=== PATIENT | male | born 1930 | race Caucasian/White ===

== ENCOUNTER 2019-05-26 21:53 | Inpatient (IN) | payer MEDICARE, MEDICAID ==
[~2019-05-26] VITALS: Ht 167.6 cm; Wt 60.6 kg
--- NOTE | 2019-05-26 22:09 | Emergency Room Report ---
History of Present Illness General Chief Complaint: Upper Respiratory Illness Source: Patient Present Illness HPI This an 88-year-old male from a [facility]. He has a history of high blood pressure and schizophrenia. He is bedbound. He is a DNR. He presents with chief complaint of shortness of breath. Onset today per [facility] note. Unknown other complaint since he cannot give a history. Per air export operations agent, room air oxygenation was in the high 80 percentile. Better on oxygen. Patient does have a slight cough. Allergies: Coded Allergies: SIMVASTATIN (Verified Allergy, Unknown, 05/26/19) Patient History Past Medical History: see triage record, old chart reviewed, HTN, psych hx Past Surgical History: other Pertinent Family History: none Social History: Denies: smoking Immunizations: other Reviewed Nursing Documentation: PMH: Agreed; PSxH: Agreed Nursing Documentation-PMH Hx Cardiac Problems: Yes - hypercholesterol Hx Hypertension: Yes Hx Gastrointestinal Problems: Yes History Of Psychiatric Problem: Yes - GERD Hx Neurological Problems: Yes - parkinsons Review of Systems Eye: Denies: eye pain, blurred vision ENT: Denies: ear pain, nose congestion, throat swelling Respiratory: Reports: cough, shortness of breath Cardiovascular: Denies: chest pain, palpitations Gastrointestinal: Denies: abdominal pain, diarrhea, nausea, vomiting Musculoskeletal: Denies: back pain, joint pain Skin: Denies: rash Neurological: Denies: headache, numbness Endocrine: Denies: increased thirst, increased urine Hematologic/Lymphatic: Denies: easy bruising All Other Systems: negative except mentioned in HPI Physical Exam Vital Signs Date Time Temp Pulse Resp B/P (MAP) Pulse Ox O2 Delivery O2 Flow Rate FiO2 05/26/19 21:50 97.9 110 22 122/89 (100) 87 Nasal Cannula 6.0 Vitals with hypoxia Sp02 EP Interpretation: reviewed, abnormal General Appearance: alert, mild distress, cachetic, Chronically Ill Head: normocephalic, atraumatic Eyes: bilateral eye PERRL, bilateral eye EOMI ENT: hearing grossly normal, normal pharynx Neck: full range of motion, supple, no meningismus Respiratory: chest non-tender, respiratory distress, decreased breath sounds, accessory muscle use Cardiovascular #1: regular rate, rhythm, no murmur Gastrointestinal: normal bowel sounds, non tender, no mass, no organomegaly, no bruit, non-distended Musculoskeletal: back normal, normal range of motion, gait/station normal Psychiatric: mood/affect normal Procedures Critical Care Time Critical Care Time Critical care is mandated in this patient who presented with sepsis from pneumonia and UTI. Patient require my urgent intervention to attenuate the risks of metabolic collapse which may lead to cardiovascular collapse and . Critical care time is 35 minutes excluding any reportable procedure. Critical care time included evaluation, multiple reevaluation, looking at old charts, interpreting laboratory and diagnostic data, discussing case with patient and family and consultants, and charting. Medical Decision Making Diagnostic Impression: Primary Impression: Sepsis Qualified Codes: A41.9 - Sepsis, unspecified organism; R65.20 - Severe sepsis without septic shock; J96.01 - Acute respiratory failure with hypoxia Additional Impressions: Respiratory failure with hypoxia Qualified Codes: J96.01 - Acute respiratory failure with hypoxia HCAP (healthcare-associated pneumonia) UTI (urinary tract infection) Qualified Codes: N30.00 - Acute cystitis without hematuria ROSA (acute kidney injury) Dehydration ER Course This patient presents with hypoxia. Chest x-ray showed a right lower lobe infiltrate and also a left lower lobe infiltrate. He also has urinary tract infection. Better after IV fluid. Wide spectrum antibiotics given. Will admit for further work-up and IV fluid and IV biotics. I contacted Dr. Gunter for admission. EKG Diagnostic Results Rate: tachycardiac Rhythm: NSR ST Segments: other - NSST changes Rhythm Strip Diag. Results EP Interpretation: yes Rate: 100 Rhythm: NSR, no PVC's, no ectopy Chest X-Ray Diagnostic Results Chest X-Ray Diagnostic Results : Chest X-Ray Ordered: Yes # of Views/Limited/Complete: 1 View Indication: Shortness of Breath EP Interpretation: Yes Interpretation: no effusion, no pneumothorax, other - b/l lower lobe infiltrates Impression: Other - b/l lower lobe infiltrates Electronically Signed by: Demarcus Hook MD Last Vital Signs Date Time Temp Pulse Resp B/P (MAP) Pulse Ox O2 Delivery O2 Flow Rate FiO2 05/26/19 21:50 97.9 110 22 122/89 (100) 87 Nasal Cannula 6.0 Status: improved Disposition: ADMITTED INPATIENT Condition: Serious Demarcus Hook MD May 26, 2019 22:09
[2019-05-26] MEDS ORDERED: Albuterol ud Inhalation HHN ONE (22:15)
[2019-05-26 22:35] LABS: HEMATOCRIT 39.5 % (42.0-52.0); HEMOGLOBIN 12.1 G/DL (14.2-18.0); MEAN CORPUSCULAR VOLUME 93 FL (80-99); PLATELET COUNT 261 K/UL (150-450); RED BLOOD COUNT 4.23 M/UL (4.70-6.10); RED CELL DISTRIBUTION WIDTH 13.9 % (11.6-14.8); WHITE BLOOD COUNT 14.3 K/UL (4.8-10.8)
[2019-05-26 22:46] LABS: ANION GAP 12 mmol/L (5-15); BLOOD UREA NITROGEN 53 mg/dL (7-18); CALCIUM 9.5 MG/DL (8.5-10.1); CARBON DIOXIDE 25 MMOL/L (21-32); CHLORIDE 118 MMOL/L (98-107); CREATININE 1.6 MG/DL (0.55-1.30); POTASSIUM 4.1 MMOL/L (3.5-5.1); SODIUM 155 MMOL/L (136-145)
[2019-05-26 22:57] LABS: ALANINE AMINOTRANSFERASE 19 U/L (12-78); ALBUMIN 2.4 G/DL (3.4-5.0); ALBUMIN/GLOBULIN RATIO 0.5 (1.0-2.7); ALKALINE PHOSPHATASE 100 U/L (46-116); ASPARTATE AMINO TRANSFERASE 14 U/L (15-37); BILIRUBIN,TOTAL 0.7 MG/DL (0.2-1.0)
[2019-05-26] MEDS ORDERED: Cefepime HCl 1 GM in D5W 55 ML IVPB ONE (23:15)
[2019-05-26 23:20] LABS: COLOR,URINE YELLOW
[2019-05-26 23:21] LABS: APPEARANCE,URINE CLOUDY; BILIRUBIN, URINE NEGATIVE (NEGATIVE); GLUCOSE, URINE (UA) NEGATIVE (NEGATIVE); KETONES,URINE NEGATIVE (NEGATIVE); NITRITE,URINE NEGATIVE (NEGATIVE); PROTEIN,URINE 3+ (NEGATIVE); UROBILINOGEN,URINE 1 MG/DL (0.0-1.0)
[2019-05-26 23:22] LABS: LEUKOCYTE ESTERASE ,URINE 3+ (NEGATIVE)
[2019-05-26 23:45] VITALS: BP 122/89
[2019-05-27] VITALS (7 sets, daily range): BP systolic 94–130; BP diastolic 60–80
--- NOTE | 2019-05-27 00:01 | Emergency Room Report ---
Sepsis Event Note Evaluation Current Stage of Sepsis: Sepsis Possible Source: Pulmonary Focused Exam Allergies: Coded Allergies: SIMVASTATIN (Verified Allergy, Unknown, 05/26/19) Date Exam Occurred: May 27, 2019 Time Exam Occurred: 00:00 Laboratory Studies Laboratory Tests Test 05/26/19 22:22 05/26/19 23:01 05/26/19 23:35 White Blood Count 14.3 K/UL (4.8-10.8) H Red Blood Count 4.23 M/UL (4.70-6.10) L Hemoglobin 12.1 G/DL (14.2-18.0) L Hematocrit 39.5 % (42.0-52.0) L Mean Corpuscular Volume 93 FL (80-99) Mean Corpuscular Hemoglobin 28.5 PG (27.0-31.0) Mean Corpuscular Hemoglobin Concent 30.5 G/DL (32.0-36.0) L Red Cell Distribution Width 13.9 % (11.6-14.8) Platelet Count 261 K/UL (150-450) Mean Platelet Volume 6.7 FL (6.5-10.1) Neutrophils (%) (Auto) % (45.0-75.0) Lymphocytes (%) (Auto) % (20.0-45.0) Monocytes (%) (Auto) % (1.0-10.0) Eosinophils (%) (Auto) % (0.0-3.0) Basophils (%) (Auto) % (0.0-2.0) Differential Total Cells Counted 100 Neutrophils % (Manual) 94 % (45-75) H Lymphocytes % (Manual) 4 % (20-45) L Monocytes % (Manual) 2 % (1-10) Eosinophils % (Manual) 0 % (0-3) Basophils % (Manual) 0 % (0-2) Band Neutrophils 0 % (0-8) Platelet Estimate Adequate Platelet Morphology Normal Hypochromasia 1+ Sodium Level 155 MMOL/L (136-145) H Potassium Level 4.1 MMOL/L (3.5-5.1) Chloride Level 118 MMOL/L (98-107) H Carbon Dioxide Level 25 MMOL/L (21-32) Anion Gap 12 mmol/L (5-15) Blood Urea Nitrogen 53 mg/dL (7-18) H Creatinine 1.6 MG/DL (0.55-1.30) H Estimat Glomerular Filtration Rate mL/min (>60) Glucose Level 156 MG/DL (74-106) H Lactic Acid Level 2.20 mmol/L (0.4-2.0) H Pending Calcium Level 9.5 MG/DL (8.5-10.1) Total Bilirubin 0.7 MG/DL (0.2-1.0) Aspartate Amino Transf (AST/SGOT) 14 U/L (15-37) L Alanine Aminotransferase (ALT/SGPT) 19 U/L (12-78) Alkaline Phosphatase 100 U/L (46-116) Troponin I 0.011 ng/mL (0.000-0.056) Pro-B-Type Natriuretic Peptide 1097 pg/mL (0-125) H Total Protein 7.1 G/DL (6.4-8.2) Albumin 2.4 G/DL (3.4-5.0) L Globulin 4.7 g/dL Albumin/Globulin Ratio 0.5 (1.0-2.7) L Urine Color Yellow Urine Appearance Cloudy Urine pH 8.0 (4.5-8.0) Urine Specific Flushing 1.010 (1.005-1.035) Urine Protein 3+ (NEGATIVE) H Urine Glucose (UA) Negative (NEGATIVE) Urine Ketones Negative (NEGATIVE) Urine Blood 5+ (NEGATIVE) H Urine Nitrite Negative (NEGATIVE) Urine Bilirubin Negative (NEGATIVE) Urine Urobilinogen 1 MG/DL (0.0-1.0) H Urine Leukocyte Esterase 3+ (NEGATIVE) H Urine RBC Tntc /HPF (0 - 0) H Urine WBC Tntc /HPF (0 - 0) H Urine Squamous Epithelial Cells None /LPF (NONE/OCC) Urine Bacteria Few /HPF (NONE) Vital Signs Last 24 Hour Vital Signs Date Time Temp Pulse Resp B/P (MAP) Pulse Ox O2 Delivery O2 Flow Rate FiO2 05/26/19 23:45 97.9 103 23 122/89 99 Simple Mask 9.0 05/26/19 23:45 103 23 Simple Mask 9.0 05/26/19 22:20 110 23 99 Simple Mask 9.0 107 22 97 05/26/19 21:50 97.9 110 22 122/89 (100) 87 Nasal Cannula 6.0 Respiratory Exam: Rhonchi Cardiovascular Exam: RRR Capillary Refill: Less Than 2 Seconds Peripheral Pulse: Strong Pulse Location: Radial Skin Exam: Normal Turgor Demarcus Hook MD May 27, 2019 00:01
[2019-05-27] MEDS ORDERED: Acetaminophen 650 MG SUPP RECTAL PRN (00:45)
[2019-05-27] MEDS ORDERED: QUETIAPINE FUMA25 MG ORAL (01:01)
[2019-05-27] MEDS ORDERED: NITRO0.4 SL (01:01)
[2019-05-27] MEDS ORDERED: REMERON15 M1 ORAL (01:01)
[2019-05-27] MEDS ORDERED: TYLENOL325 M1 PO (01:01)
[2019-05-27] MEDS ORDERED: MILK OF MA400 MG/51 ORAL (01:01)
[2019-05-27] MEDS ORDERED: FINASTERIDE5 MG ORAL (01:47)
[2019-05-27] MEDS ORDERED: FLOMAX0.4 MG ORAL (01:47)
[2019-05-27] MEDS ORDERED: DOCUSATE SODIU100 M2 ORAL (01:47)
[2019-05-27] MEDS ORDERED: omeprazole (01:47)
[2019-05-27] MEDS ORDERED: MULTIVITAMINS1 EAC8 ORAL (01:47)
[2019-05-27] MEDS ORDERED: ASPIRIN-LOW81 MG ORAL (01:47)
[2019-05-27] MEDS ORDERED: LATANOPROST2.5 ML BOTH EYES (01:47)
[2019-05-27] MEDS ORDERED: D5 1/2NS 1,000 ML IV SCH (02:00)
[2019-05-27] MEDS ORDERED: Vancomycin 1gm in D5W 275ml IVPB ONE (03:00)
[2019-05-27] MEDS: Piperacillin/Tazobactam 3.375 GM in NS 110 ML IVPB SCH ×3 (05:47→20:38)
[2019-05-27 06:49] LABS: HEMATOCRIT 30.3 % (42.0-52.0); HEMOGLOBIN 10.4 G/DL (14.2-18.0); MEAN CORPUSCULAR VOLUME 87 FL (80-99); PLATELET COUNT 215 K/UL (150-450); RED CELL DISTRIBUTION WIDTH 13.6 % (11.6-14.8); WHITE BLOOD COUNT 13.9 K/UL (4.8-10.8)
[2019-05-27] MEDS: Albuterol/Ipratropium 3ml neb HHN SCH ×6 (07:04→23:29)
[2019-05-27 07:17] LABS: ALANINE AMINOTRANSFERASE 19 U/L (12-78); ALBUMIN/GLOBULIN RATIO 0.5 (1.0-2.7); ALKALINE PHOSPHATASE 86 U/L (46-116); ANION GAP 10 mmol/L (5-15); ASPARTATE AMINO TRANSFERASE 17 U/L (15-37); BILIRUBIN,TOTAL 0.7 MG/DL (0.2-1.0); BLOOD UREA NITROGEN 43 mg/dL (7-18); CALCIUM 8.5 MG/DL (8.5-10.1); CARBON DIOXIDE 24 MMOL/L (21-32); CHLORIDE 122 MMOL/L (98-107); CREATININE 1.4 MG/DL (0.55-1.30); POTASSIUM 3.5 MMOL/L (3.5-5.1); SODIUM 156 MMOL/L (136-145)
[2019-05-27] MEDS: Pantoprazole Inj IVP SCH (10:05)
[2019-05-27] MEDS: Heparin 5000 units/ml inj SUBQ SCH ×2 (10:06→20:38)
--- NOTE | 2019-05-27 11:24 | Diagnostic Imaging Report ---
Indication: Dyspnea Comparison: None A single view chest radiograph was obtained. Findings: There is ill-defined infiltrate present within both lungs. Pneumonia suspected. Findings are nonspecific however. Heart size is normal. Aorta is ectatic and calcified. Bones are osteopenic. IMPRESSION: Bilateral infiltrate suspected. Please correlate clinically
--- NOTE | 2019-05-27 19:45 | History and Physical Report ---
DATE OF ADMISSION: 05/26/2019 CHIEF COMPLAINT: Pneumonia. HISTORY OF PRESENT ILLNESS: The patient is an 88-year-old male, known to me from the longterm facility. He has a history of dementia, atherosclerotic cardiovascular disease, hypertension, urinary retention, history of abdominal aortic aneurysm status post endovascular repair. He was transferred from a longterm facility with complaints of worsening confusion, shortness of breath, cough, congestion. He was febrile, tachypneic, and required supplemental oxygen. He was transferred to the emergency room. On evaluation there, he had bilateral infiltrates noted on chest x-ray. He was started on broad-spectrum IV antibiotics. He is now admitted for further evaluation and care. PAST MEDICAL HISTORY: As above. PAST SURGICAL HISTORY: As above. CURRENT MEDICATIONS: Reconciled and reviewed. ALLERGIES: Simvastatin. FAMILY HISTORY: Noncontributory. SOCIAL HISTORY: Negative for tobacco, ethanol, or drugs. REVIEW OF SYSTEMS: Unobtainable as the patient is confused. PHYSICAL EXAMINATION: VITAL SIGNS: Temperature 99.1, pulse 105, respirations 20, blood pressure 125/60. GENERAL: The patient is a thin male, in no apparent distress. HEART: Regular rate and rhythm. LUNGS: Significant scattered rhonchi. ABDOMEN: Soft, nontender, nondistended. EXTREMITIES: cyanosis. LABORATORY DATA: Labs showed white count of 15,000. Sodium 156. Chest x-ray with bibasilar infiltrates. ASSESSMENT: This is an unfortunate male admitted with complaints of pneumonia. PROBLEM LIST: 1. Healthcare-associated pneumonia. 2. Sepsis. 3. Hypernatremia. 4. History of dementia. 5. Toxic metabolic encephalopathy. PLAN: 1. IV antibiotics. 2. Supplemental oxygen. 3. Respiratory treatments. 4. Check a swallow evaluation. 5. Pulmonary, Infectious Disease consultation will be obtained. 6. The patient will receive hypotonic fluids. Andrei Gunter M.D. DR: KELSI JOB#: [id number] CC:
--- NOTE | 2019-05-27 20:15 | Consultation ---
DATE OF CONSULTATION: 05/27/2019 PULMONARY CONSULTATION REASON FOR CONSULTATION: Respiratory insufficiency. HISTORY OF PRESENT ILLNESS: The patient is an 88-year-old male, [place] [facility] patient with known history of schizophrenia and dementia. The patient is bedbound and apparently Do Not Resuscitate. The patient complains of weakness and shortness of breath, increasing congestion. The patient noted to be significantly hypoxemic in the emergency room and on route. The patient x-rays obtained, noted to have bilateral pulmonary infiltrates. The patient seen and evaluated in the emergency room and started on antibiotics. I was called to assist and evaluate further. The patient now being admitted to medical/surgical bed. The patient is unable to give much in the way of history. retirement chart was reviewed. ER notes were reviewed. Orders were reviewed. The patient events fairly acute in nature. PAST MEDICAL HISTORY: Notable for hypercholesterolemia, schizophrenia, reflux disease, parkinsonism, dementia, hypertension. MEDICATIONS: Reviewed and reconciled. ALLERGIES: Reviewed and reconciled. SOCIAL HISTORY: retirement patient, mostly bedbound. Nonsmoker and nondrinker. REVIEW OF SYSTEMS: Unobtainable due to the patient's present state. FAMILY HISTORY: Not obtainable. PHYSICAL EXAMINATION: GENERAL: The patient is an ill-appearing male, currently on oxygen. VITAL SIGNS: Blood pressure 117/75, pule 94, temperature 99.4, saturation 96% on 3 liters. HEENT: Negative. Extraocular movements are difficult to assess. Oropharynx with poor overall care. Dry mucous membranes. NECK: Supple. LUNGS: With scattered rhonchi and crackles at both bases. CARDIAC: S1 and S2. Slightly tachycardic. Soft systolic murmur. ABDOMEN: Soft. EXTREMITIES: No cyanosis or clubbing. NEUROLOGIC: The patient is withdrawn. Reduced range of motion. LABORATORY DATA: Reviewed. White count noted , hemoglobin 10, hematocrit 30.3, platelets 215. Chemistries noted and reviewed. Sodium 156, BUN of 43, creatinine 1.4, albumin is 2, blood sugar is 128. IMPRESSION: 1. Pulmonary infiltrate, possible aspiration, associated pneumonitis. 2. Hypernatremia. 3. Acute renal failure. 4. Toxic metabolic encephalopathy. 5. Chronic encephalopathy. 6. Parkinsonism. 7. Dementia. 8. Severe protein-calorie malnutrition. RECOMMENDATIONS: 1. Agree with antibiotics. 2. Respiratory therapy. 3. Aspiration precaution. 4. Suction as needed. 5. Monitor laboratories. 6. Monitor x-ray. 7. Monitor imaging. 8. DVT prophylaxis. 9. Do Not Resuscitate. 10. Elevated head. 11. Follow clinically. 12. No further changes in interventions. 13. Assist with disposition if able. 14. Nutritional support as well as protein supplementation. Pedrito Caban M.D. DR: Jewel JOB#: [id number] CC: SIDRA
[2019-05-28 00:09] VITALS: BP 126/97
[2019-05-28] MEDS: Albuterol/Ipratropium 3ml neb HHN SCH ×6 (03:00→23:48)
[2019-05-28] MEDS: Piperacillin/Tazobactam 3.375 GM in NS 110 ML IVPB SCH ×3 (04:30→22:05)
[2019-05-28 04:31] VITALS: BP 134/87
--- NOTE | 2019-05-28 07:47 | General Progress Note ---
Assessment/Plan Problem List: (1) ROSA (acute kidney injury) ICD Codes: N17.9 - Acute kidney failure, unspecified SNOMED: 40705439, 5777423 (2) Dehydration ICD Codes: E86.0 - Dehydration SNOMED: 02418167, 3256047 (3) Respiratory failure with hypoxia ICD Codes: J96.91 - Respiratory failure, unspecified with hypoxia SNOMED: 45527824297945108 Qualifiers: Qualified Codes: J96.01 - Acute respiratory failure with hypoxia (4) Sepsis ICD Codes: A41.9 - Sepsis, unspecified organism SNOMED: 43794821, 616621044 Qualifiers: Qualified Codes: A41.9 - Sepsis, unspecified organism; R65.20 - Severe sepsis without septic shock; J96.01 - Acute respiratory failure with hypoxia (5) UTI (urinary tract infection) ICD Codes: N39.0 - Urinary tract infection, site not specified SNOMED: 89254132, 403996643 Qualifiers: Qualified Codes: N30.00 - Acute cystitis without hematuria (6) HCAP (healthcare-associated pneumonia) ICD Codes: J18.9 - Pneumonia, unspecified organism SNOMED: 590551423, 065258327 Status: stable Assessment/Plan: cont iv abx resp rx/o2 swallow eval pending follow up labs monitor Na level repeat cxr follow up cultures Subjective ROS Limited/Unobtainable: No Constitutional: Reports: malaise, weakness HEENT: Reports: no symptoms Cardiovascular: Reports: no symptoms Respiratory: Reports: cough, shortness of breath Gastrointestinal/Abdominal: Reports: difficulty swallowing Genitourinary: Reports: no symptoms Neurologic/Psychiatric: Reports: depressed Hematologic/Lymphatic: Reports: no symptoms Allergies: Coded Allergies: SIMVASTATIN (Verified Allergy, Unknown, 05/26/19) All Systems: reviewed and negative except above Subjective no events. remains on o2 and iv abx. seems less congested. no fevers. Objective Last 24 Hour Vital Signs Date Time Temp Pulse Resp B/P (MAP) Pulse Ox O2 Delivery O2 Flow Rate FiO2 05/28/19 04:31 98.0 99 20 134/87 (103) 91 05/28/19 03:05 Nasal Cannula 5.0 40 05/28/19 00:09 99.3 101 20 126/97 (107) 90 2/4/20 23:18 96 20 98 Nasal Cannula 5.0 40 94 22 94 05/27/19 21:15 Nasal Cannula 2.0 05/27/19 20:10 92 Nasal Cannula 5.0 40 05/27/19 20:10 96 22 95 Nasal Cannula 5.0 40 92 26 92 05/27/19 20:04 99.5 105 18 130/80 (97) 91 05/27/19 16:00 99.4 94 18 117/75 (89) 92 05/27/19 14:30 105 20 96 Nasal Cannula 6.0 44 103 20 94 05/27/19 12:00 99.1 73 20 125/60 (81) 94 05/27/19 10:58 100 20 93 Nasal Cannula 6.0 44 94 20 95 05/27/19 09:00 Venturi Mask 05/27/19 08:06 102 20 96 Venturi Mask 10.0 45 97 20 93 05/27/19 08:00 97.4 95 20 94/66 (75) 94 Intake and Output 05/27/19 05/28/19 19:00 07:00 Intake Total 937.5 ml 715.0 ml Output Total 800 ml 400 ml Balance 137.5 ml 315.0 ml Intake Oral 120 ml IV Total 817.5 ml 715.0 ml Output Urine Total 800 ml 400 ml # Voids 2 Laboratory Tests 05/28/19 06:55: Sodium Level [Pending], Potassium Level [Pending], Chloride Level [Pending], Carbon Dioxide Level [Pending], Blood Urea Nitrogen [Pending], Creatinine [ Pending], Estimat Glomerular Filtration Rate [Pending], Glucose Level [Pending] , Calcium Level [Pending], Total Bilirubin [Pending], Aspartate Amino Transf ( AST/SGOT) [Pending], Alanine Aminotransferase (ALT/SGPT) [Pending], Alkaline Phosphatase [Pending], Total Protein [Pending], Albumin [Pending], Globulin [ Pending], Random Vancomycin Level [Pending] Height (Feet): 5 Height (Inches): 6.00 Weight (Pounds): 138 General Appearance: WD/WN, alert, confused Neck: supple Cardiovascular: regular rhythm Respiratory/Chest: rhonchi - bilaterally Abdomen: normal bowel sounds, non tender, soft, no organomegaly Edema: no edema noted Arm (L), no edema noted Arm (R), no edema noted Leg (L), no edema noted Leg (R), no edema noted Pedal (L), no edema noted Pedal (R), no edema noted Generalized Neurologic: 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
[2019-05-28 07:49] LABS: ALANINE AMINOTRANSFERASE 16 U/L (12-78); ALBUMIN/GLOBULIN RATIO 0.5 (1.0-2.7); ALKALINE PHOSPHATASE 89 U/L (46-116); ANION GAP 11 mmol/L (5-15); ASPARTATE AMINO TRANSFERASE 15 U/L (15-37); BILIRUBIN,TOTAL 1.2 MG/DL (0.2-1.0); BLOOD UREA NITROGEN 32 mg/dL (7-18); CALCIUM 8.8 MG/DL (8.5-10.1); CARBON DIOXIDE 25 MMOL/L (21-32); CHLORIDE 122 MMOL/L (98-107); CREATININE 1.6 MG/DL (0.55-1.30); POTASSIUM 3.4 MMOL/L (3.5-5.1); SODIUM 158 MMOL/L (136-145)
[2019-05-28 07:55] LABS: BILIRUBIN,DIRECT 0.2 MG/DL (0.0-0.3)
[2019-05-28 08:00] VITALS: BP 143/110
[2019-05-28] MEDS: Pantoprazole Inj IVP SCH (08:54)
[2019-05-28] MEDS: Heparin 5000 units/ml inj SUBQ SCH ×2 (08:54→21:10)
[2019-05-28] MEDS ORDERED: Varibar Nectar 240ml MC PRN (10:15)
[2019-05-28] MEDS ORDERED: Varibar Honey 250ml MC PRN (10:15)
[2019-05-28] MEDS ORDERED: Varibar Pudding 230ml MC PRN (10:15)
[2019-05-28 12:00] VITALS: BP 125/61
[2019-05-28] MEDS: Vancomycin 750mg/NS 275ml IVPB SCH ×2 (14:13)
--- NOTE | 2019-05-28 14:37 | Diagnostic Imaging Report ---
Indication: Dyspnea Comparison: None A single view chest radiograph was obtained. Findings: Interstitial markings are prominent bilaterally. Findings a may be due to CHF. Correlate clinically. Heart is normal in size. Aorta is ectatic. Bones are osteopenic. IMPRESSION: Interstitial disease. CHF versus pneumonitis
[2019-05-28 16:00] VITALS: BP 125/79
[2019-05-28 20:00] VITALS: BP 137/83
[2019-05-29] VITALS: BP 134/75
[2019-05-29] MEDS: Albuterol/Ipratropium 3ml neb HHN SCH ×6 (02:53→23:16)
[2019-05-29 04:00] VITALS: BP 125/78
[2019-05-29] MEDS: Piperacillin/Tazobactam 3.375 GM in NS 110 ML IVPB SCH ×3 (05:37→21:53)
[2019-05-29 06:14] LABS: ALANINE AMINOTRANSFERASE 16 U/L (12-78); ALBUMIN 1.8 G/DL (3.4-5.0); ALBUMIN/GLOBULIN RATIO 0.4 (1.0-2.7); ALKALINE PHOSPHATASE 83 U/L (46-116); ANION GAP 9 mmol/L (5-15); ASPARTATE AMINO TRANSFERASE 16 U/L (15-37); BLOOD UREA NITROGEN 28 mg/dL (7-18); CALCIUM 8.6 MG/DL (8.5-10.1); CARBON DIOXIDE 25 MMOL/L (21-32); CHLORIDE 121 MMOL/L (98-107); CREATININE 1.5 MG/DL (0.55-1.30); POTASSIUM 2.8 MMOL/L (3.5-5.1); SODIUM 155 MMOL/L (136-145)
[2019-05-29 08:00] VITALS: BP 135/78
[2019-05-29] MEDS: Pantoprazole Inj IVP SCH (08:27)
[2019-05-29] MEDS: Heparin 5000 units/ml inj SUBQ SCH ×2 (08:28→22:00)
--- NOTE | 2019-05-29 09:06 | Pulmonology Progress Note ---
Assessment/Plan Assessment/Plan IMPRESSION: 1. Pulmonary infiltrates, possible pulmonary edema 2. Hypernatremia. 3. Acute renal failure. 4. Toxic metabolic encephalopathy. 5. Chronic encephalopathy. 6. Parkinsonism. 7. Dementia. 8. Severe protein-calorie malnutrition. PLAN keep negative respiratory care oxygen monitor imaging monitor BNP close follow up DVT prophylaxis impression, plan, and exam edited and reviewed in detail care discussed with RN Subjective ROS Limited/Unobtainable: Yes Allergies: Coded Allergies: SIMVASTATIN (Verified Allergy, Unknown, 05/26/19) Subjective reviewed care on oxygen subjective congestion Objective Last 24 Hour Vital Signs Date Time Temp Pulse Resp B/P (MAP) Pulse Ox O2 Delivery O2 Flow Rate FiO2 05/29/19 08:00 98.7 79 18 135/78 (97) 95 05/29/19 07:34 82 20 99 Nasal Cannula 3.0 32 84 20 96 05/29/19 07:34 96 Nasal Cannula 3.0 32 05/29/19 04:00 100.0 88 20 125/78 (94) 95 05/29/19 02:53 87 20 99 Nasal Cannula 3.0 32 80 20 95 05/29/19 00:00 98.7 93 20 134/75 (94) 95 05/28/19 23:48 82 20 99 Nasal Cannula 3.0 32 84 20 95 05/28/19 21:00 Nasal Cannula 5.0 05/28/19 20:07 96 Nasal Cannula 3.0 32 05/28/19 20:07 79 20 98 Nasal Cannula 3.0 32 76 20 96 05/28/19 20:00 98.8 90 20 137/83 (101) 99 05/28/19 16:00 99.4 103 18 125/79 (94) 94 05/28/19 14:21 95 22 97 Nasal Cannula 5.0 40 90 21 95 05/28/19 12:00 98.0 85 20 125/61 (82) 94 05/28/19 10:52 97 20 98 Nasal Cannula 5.0 40 95 20 94 Intake and Output 05/28/19 05/29/19 19:00 07:00 Intake Total 1183.333 ml 1137.5 ml Output Total 300 ml 450 ml Balance 883.333 ml 687.5 ml Intake Oral 240 ml IV Total 943.333 ml 1137.5 ml Output Urine Total 300 ml 450 ml # Voids 1 Objective GENERAL: The patient is an ill-appearing male, currently on oxygen. HEENT: Negative. Extraocular movements are difficult to assess. Oropharynx with poor overall care. Dry mucous membranes. NECK: Supple. LUNGS: With some rhonchi and crackles at both bases. CARDIAC: S1 and S2. Slightly tachycardic. Soft systolic murmur. ABDOMEN: Soft. no distention EXTREMITIES: No cyanosis or clubbing. NEUROLOGIC: The patient is withdrawn. Reduced range of motion. Microbiology Date/Time Source Procedure Growth Status 05/26/19 23:01 Urine,Clean Catch Urine Culture - Final Proteus Mirabilis Complete 05/26/19 23:50 Rectum VRE Culture - Final NO VANCOMYCIN RESISTANT ENTEROCOCCUS ... Complete 05/26/19 23:50 Rectum - Final NO CARBAPENEM-RESISTANT ENTEROBACTERI... Complete Laboratory Tests 05/29/19 05:24: Sodium Level 155H, Potassium Level 2.8L, Chloride Level 121H, Carbon Dioxide Level 25, Anion Gap 9, Blood Urea Nitrogen 28H, Creatinine 1.5H, Estimat Glomerular Filtration Rate , Glucose Level 135H, Calcium Level 8.6, Total Bilirubin 1.0, Aspartate Amino Transf (AST/SGOT) 16, Alanine Aminotransferase ( ALT/SGPT) 16, Alkaline Phosphatase 83, Total Protein 5.9L, Albumin 1.8L, Globulin 4.1, Albumin/Globulin Ratio 0.4L Current Medications Medications (Trade) Dose Ordered Sig/Monster Route PRN Reason Start Time Stop Time Status Last Admin Dose Admin Albuterol/ Ipratropium (Albuterol/ Ipratropium) 3 ml Q4HRT HHN 05/27/19 03:00 06/01/19 02:59 05/29/19 07:32 Barium Sulfate (Varibar Honey) 250 ml NOW PRN MC RAD 05/28/19 10:15 05/31/19 10:10 Barium Sulfate (Varibar [place]) 240 ml NOW PRN MC RAD 05/28/19 10:15 05/31/19 10:10 Barium Sulfate (Varibar Pudding) 230 ml NOW PRN MC RAD 05/28/19 10:15 05/31/19 10:10 Dextrose 1,000 ml @ 125 mls/hr Q8H IV 05/28/19 12:00 06/27/19 11:59 05/29/19 03:43 Heparin Sodium (Porcine) (Heparin 5000 units/ml) 5,000 units EVERY 12 HOURS SUBQ 05/27/19 09:00 06/26/19 08:59 05/29/19 08:28 Pantoprazole (Protonix) 40 mg DAILY IVP 05/27/19 09:00 06/26/19 08:59 05/29/19 08:27 Piperacillin Sod/ Tazobactam Sod 3.375 gm/Sodium Chloride 110 ml @ 27.5 mls/hr EVERY 8 HOURS IVPB 05/27/19 06:00 06/01/19 05:59 05/29/19 05:37 Vancomycin HCl (Vanco rx to dose) 1 ea DAILY PRN MISC Per rx protocol 05/27/19 02:00 06/26/19 01:59 Vancomycin HCl 750 mg/Sodium Chloride 275 ml @ 183.333 mls/hr Q24H IVPB 05/28/19 10:00 06/02/19 09:59 05/28/19 14:13 Pedrito Caban MD May 29, 2019 09:06
[2019-05-29] MEDS: Vancomycin 750mg/NS 275ml IVPB SCH ×2 (11:23)
[2019-05-29 12:00] VITALS: BP 115/69
[2019-05-29 16:00] VITALS: BP 149/82
[2019-05-29 20:00] VITALS: BP 140/73
--- NOTE | 2019-05-29 20:27 | General Progress Note ---
Assessment/Plan Problem List: (1) ROSA (acute kidney injury) ICD Codes: N17.9 - Acute kidney failure, unspecified SNOMED: 02411850, 6965187 (2) Dehydration ICD Codes: E86.0 - Dehydration SNOMED: 67466910, 0335569 (3) Respiratory failure with hypoxia ICD Codes: J96.91 - Respiratory failure, unspecified with hypoxia SNOMED: 91621560228334219 Qualifiers: Qualified Codes: J96.01 - Acute respiratory failure with hypoxia (4) Sepsis ICD Codes: A41.9 - Sepsis, unspecified organism SNOMED: 14122257, 100526287 Qualifiers: Qualified Codes: A41.9 - Sepsis, unspecified organism; R65.20 - Severe sepsis without septic shock; J96.01 - Acute respiratory failure with hypoxia (5) UTI (urinary tract infection) ICD Codes: N39.0 - Urinary tract infection, site not specified SNOMED: 88617694, 537478694 Qualifiers: Qualified Codes: N30.00 - Acute cystitis without hematuria (6) HCAP (healthcare-associated pneumonia) ICD Codes: J18.9 - Pneumonia, unspecified organism SNOMED: 248926225, 150434620 Status: stable Assessment/Plan: cont iv abx resp rx/o2 swallow eval noted follow up labs monitor Na level ivf adjusted repeat cxr follow up cultures Subjective ROS Limited/Unobtainable: No Constitutional: Reports: malaise, weakness HEENT: Reports: no symptoms Cardiovascular: Reports: no symptoms Respiratory: Reports: cough, shortness of breath Gastrointestinal/Abdominal: Reports: difficulty swallowing Genitourinary: Reports: no symptoms Neurologic/Psychiatric: Reports: pre-existing deficit Endocrine: Reports: no symptoms Hematologic/Lymphatic: Reports: no symptoms Allergies: Coded Allergies: SIMVASTATIN (Verified Allergy, Unknown, 05/26/19) All Systems: reviewed and negative except above Subjective no events. remains on o2 and iv abx. seems less congested. no fevers. Objective Last 24 Hour Vital Signs Date Time Temp Pulse Resp B/P (MAP) Pulse Ox O2 Delivery O2 Flow Rate FiO2 05/29/19 20:01 85 20 98 Nasal Cannula 3.0 32 80 20 95 05/29/19 20:01 95 Nasal Cannula 3.0 32 05/29/19 16:00 98.3 85 18 149/82 (104) 94 05/29/19 15:42 81 20 99 Nasal Cannula 3.0 32 83 20 93 05/29/19 12:00 97.2 90 18 115/69 (84) 95 05/29/19 10:52 78 20 98 Nasal Cannula 3.0 32 81 20 93 05/29/19 09:00 Nasal Cannula 5.0 05/29/19 08:00 98.7 79 18 135/78 (97) 95 05/29/19 07:34 82 20 99 Nasal Cannula 3.0 32 84 20 96 05/29/19 07:34 96 Nasal Cannula 3.0 32 05/29/19 04:00 100.0 88 20 125/78 (94) 95 05/29/19 02:53 87 20 99 Nasal Cannula 3.0 32 80 20 95 05/29/19 00:00 98.7 93 20 134/75 (94) 95 05/28/19 23:48 82 20 99 Nasal Cannula 3.0 32 84 20 95 05/28/19 21:00 Nasal Cannula 5.0 Intake and Output 05/28/19 05/29/19 19:00 07:00 Intake Total 1183.333 ml 1262.5 ml Output Total 300 ml 450 ml Balance 883.333 ml 812.5 ml Intake Oral 240 ml IV Total 943.333 ml 1262.5 ml Output Urine Total 300 ml 450 ml # Voids 1 Laboratory Tests 05/29/19 05:24: Sodium Level 155H, Potassium Level 2.8L, Chloride Level 121H, Carbon Dioxide Level 25, Anion Gap 9, Blood Urea Nitrogen 28H, Creatinine 1.5H, Estimat Glomerular Filtration Rate , Glucose Level 135H, Calcium Level 8.6, Total Bilirubin 1.0, Aspartate Amino Transf (AST/SGOT) 16, Alanine Aminotransferase ( ALT/SGPT) 16, Alkaline Phosphatase 83, Total Protein 5.9L, Albumin 1.8L, Globulin 4.1, Albumin/Globulin Ratio 0.4L Height (Feet): 5 Height (Inches): 6.00 Weight (Pounds): 138 Objective General Appearance: WD/WN, alert, confused Neck: supple Cardiovascular: regular rhythm Respiratory/Chest: rhonchi - bilaterally Abdomen: normal bowel sounds, non tender, soft, no organomegaly Edema: no edema noted Arm (L), no edema noted Arm (R), no edema noted Leg (L), no edema noted Leg (R), no edema noted Pedal (L), no edema noted Pedal (R), no edema noted 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
[2019-05-29] MEDS: D5W w/KCl 20mEq 1,000 ML IV SCH (21:52)
[2019-05-30] VITALS (7 sets, daily range): BP systolic 98–128; BP diastolic 56–89
[2019-05-30] MEDS: Albuterol/Ipratropium 3ml neb HHN SCH ×6 (02:38→22:44)
[2019-05-30] MEDS: D5W w/KCl 20mEq 1,000 ML IV SCH ×4 (05:19→23:16)
[2019-05-30] MEDS: Piperacillin/Tazobactam 3.375 GM in NS 110 ML IVPB SCH ×3 (05:19→23:14)
--- NOTE | 2019-05-30 07:40 | General Progress Note ---
Assessment/Plan Problem List: (1) ROSA (acute kidney injury) ICD Codes: N17.9 - Acute kidney failure, unspecified SNOMED: 57139829, 4731239 (2) Dehydration ICD Codes: E86.0 - Dehydration SNOMED: 10377828, 4114767 (3) Respiratory failure with hypoxia ICD Codes: J96.91 - Respiratory failure, unspecified with hypoxia SNOMED: 61878738308915217 Qualifiers: Qualified Codes: J96.01 - Acute respiratory failure with hypoxia (4) Sepsis ICD Codes: A41.9 - Sepsis, unspecified organism SNOMED: 54044535, 521787577 Qualifiers: Qualified Codes: A41.9 - Sepsis, unspecified organism; R65.20 - Severe sepsis without septic shock; J96.01 - Acute respiratory failure with hypoxia (5) UTI (urinary tract infection) ICD Codes: N39.0 - Urinary tract infection, site not specified SNOMED: 89518526, 705085859 Qualifiers: Qualified Codes: N30.00 - Acute cystitis without hematuria (6) HCAP (healthcare-associated pneumonia) ICD Codes: J18.9 - Pneumonia, unspecified organism SNOMED: 683873105, 101311669 Status: stable Assessment/Plan: cont iv abx resp rx/o2 swallow eval noted follow up labs monitor Na level ivf adjusted monitor cxr follow up cultures Subjective ROS Limited/Unobtainable: No Constitutional: Reports: malaise, weakness HEENT: Reports: no symptoms Cardiovascular: Reports: no symptoms Respiratory: Reports: no symptoms Gastrointestinal/Abdominal: Reports: no symptoms Genitourinary: Reports: no symptoms Neurologic/Psychiatric: Reports: anxiety, depressed, emotional problems Endocrine: Reports: no symptoms Hematologic/Lymphatic: Reports: no symptoms Allergies: Coded Allergies: SIMVASTATIN (Verified Allergy, Unknown, 05/26/19) All Systems: reviewed and negative except above Subjective no events. remains on o2 and iv abx. seems less congested. no fevers. labs pending.still on hypotonic ivf Objective Last 24 Hour Vital Signs Date Time Temp Pulse Resp B/P (MAP) Pulse Ox O2 Delivery O2 Flow Rate FiO2 05/30/19 07:07 83 18 98 Nasal Cannula 3.0 32 80 18 95 05/30/19 07:03 95 Nasal Cannula 3.0 32 05/30/19 04:00 98.6 89 18 118/74 (89) 98 05/30/19 02:38 88 20 98 Nasal Cannula 3.0 32 85 20 95 05/30/19 00:00 98.0 89 20 115/69 (84) 95 05/29/19 23:16 89 20 99 Nasal Cannula 3.0 32 86 20 96 05/29/19 21:00 Nasal Cannula 5.0 05/29/19 20:01 85 20 98 Nasal Cannula 3.0 32 80 20 95 05/29/19 20:01 95 Nasal Cannula 3.0 32 05/29/19 20:00 99.1 93 18 140/73 (95) 95 05/29/19 16:00 98.3 85 18 149/82 (104) 94 05/29/19 15:42 81 20 99 Nasal Cannula 3.0 32 83 20 93 05/29/19 12:00 97.2 90 18 115/69 (84) 95 05/29/19 10:52 78 20 98 Nasal Cannula 3.0 32 81 20 93 05/29/19 09:00 Nasal Cannula 5.0 05/29/19 08:00 98.7 79 18 135/78 (97) 95 Intake and Output 05/29/19 05/30/19 19:00 07:00 Intake Total 1796.666 ml 430.0 ml Output Total 650 ml Balance 1796.666 ml -220.0 ml IV Total 1796.666 ml 430.0 ml Output Urine Total 650 ml # Voids 3 Height (Feet): 5 Height (Inches): 6.00 Weight (Pounds): 138 Objective General Appearance: WD/WN, alert, confused Neck: supple Cardiovascular: regular rhythm Respiratory/Chest: rhonchi - bilaterally Abdomen: normal bowel sounds, non tender, soft, no organomegaly Edema: no edema noted Arm (L), no edema noted Arm (R), no edema noted Leg (L), no edema noted Leg (R), no edema noted Pedal (L), no edema noted Pedal (R), no edema noted 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
[2019-05-30] MEDS: Pantoprazole Inj IVP SCH (08:31)
[2019-05-30] MEDS: Heparin 5000 units/ml inj SUBQ SCH ×2 (08:32→20:31)
[2019-05-30 09:14] LABS: BASOPHILS % (AUTO) 0.5 % (0.0-2.0); EOSINOPHILS % (AUTO) 8.1 % (0.0-3.0); HEMATOCRIT 26.4 % (42.0-52.0); HEMOGLOBIN 8.8 G/DL (14.2-18.0); LYMPHOCYTES % (AUTO) 13.1 % (20.0-45.0); MEAN CORPUSCULAR VOLUME 87 FL (80-99); MONOCYTES % (AUTO) 4.6 % (1.0-10.0); NEUTROPHILS % (AUTO) 73.7 % (45.0-75.0); PLATELET COUNT 207 K/UL (150-450); RED BLOOD COUNT 3.03 M/UL (4.70-6.10); RED CELL DISTRIBUTION WIDTH 13.5 % (11.6-14.8); WHITE BLOOD COUNT 8.7 K/UL (4.8-10.8)
[2019-05-30 09:24] LABS: ALANINE AMINOTRANSFERASE 15 U/L (12-78); ALBUMIN 1.6 G/DL (3.4-5.0); ALBUMIN/GLOBULIN RATIO 0.4 (1.0-2.7); ALKALINE PHOSPHATASE 75 U/L (46-116); ANION GAP 9 mmol/L (5-15); ASPARTATE AMINO TRANSFERASE 16 U/L (15-37); BILIRUBIN,TOTAL 0.9 MG/DL (0.2-1.0); BLOOD UREA NITROGEN 20 mg/dL (7-18); CARBON DIOXIDE 24 MMOL/L (21-32); CHLORIDE 116 MMOL/L (98-107); CREATININE 1.3 MG/DL (0.55-1.30); POTASSIUM 2.9 MMOL/L (3.5-5.1); SODIUM 149 MMOL/L (136-145)
[2019-05-30] MEDS ORDERED: Vancomycin 750mg/NS 275ml IVPB SCH ×2 (10:00)
[2019-05-30] MEDS: Vancomycin 750mg/NS 275ml IVPB SCH ×4 (10:10→21:14)
[2019-05-30] MEDS ORDERED: D5 1/2NS 1000ml IV ONE (11:00)
[2019-05-30] MEDS ORDERED: D5W 275ml ONE (11:00)
[2019-05-30] MEDS ORDERED: Tubing IV Secondary IV ONE (11:00)
--- NOTE | 2019-05-30 17:34 | Pulmonology Progress Note ---
Assessment/Plan Assessment/Plan IMPRESSION: 1. Pulmonary infiltrates, possible pulmonary edema 2. Hypernatremia. 3. Acute renal failure. 4. Toxic metabolic encephalopathy. 5. Chronic encephalopathy. 6. Parkinsonism. 7. Dementia. 8. Severe protein-calorie malnutrition. PLAN keep negative respiratory care oxygen monitor imaging and repeat monitor BNP and optimize close follow up DVT prophylaxis aspiration precautions impression, plan, and exam edited and reviewed in detail care discussed with RN Subjective ROS Limited/Unobtainable: Yes Allergies: Coded Allergies: SIMVASTATIN (Verified Allergy, Unknown, 05/26/19) Subjective reviewed care on oxygen some cough Objective Last 24 Hour Vital Signs Date Time Temp Pulse Resp B/P (MAP) Pulse Ox O2 Delivery O2 Flow Rate FiO2 05/30/19 14:55 82 19 97 Nasal Cannula 3.0 32 82 20 95 05/30/19 12:00 98.5 85 20 109/57 (74) 95 05/30/19 10:44 86 18 97 Nasal Cannula 3.0 32 85 20 94 05/30/19 09:00 Nasal Cannula 5.0 05/30/19 08:00 97.7 88 20 98/63 (75) 97 05/30/19 07:07 83 18 98 Nasal Cannula 3.0 32 80 18 95 05/30/19 07:03 95 Nasal Cannula 3.0 32 05/30/19 04:00 98.6 89 18 118/74 (89) 98 05/30/19 02:38 88 20 98 Nasal Cannula 3.0 32 85 20 95 05/30/19 00:00 98.0 89 20 115/69 (84) 95 05/29/19 23:16 89 20 99 Nasal Cannula 3.0 32 86 20 96 05/29/19 21:00 Nasal Cannula 5.0 05/29/19 20:01 85 20 98 Nasal Cannula 3.0 32 80 20 95 05/29/19 20:01 95 Nasal Cannula 3.0 32 05/29/19 20:00 99.1 93 18 140/73 (95) 95 Intake and Output 05/29/19 05/30/19 18:59 06:59 Intake Total 1921.666 ml 430.0 ml Output Total 650 ml Balance 1921.666 ml -220.0 ml IV Total 1921.666 ml 430.0 ml Output Urine Total 650 ml # Voids 3 Objective GENERAL: The patient is an ill-appearing male, currently on oxygen. HEENT: Negative. Extraocular movements are difficult to assess. Oropharynx with poor overall care. Dry mucous membranes. NECK: Supple. LUNGS: With some rhonchi and crackles at both bases. CARDIAC: S1 and S2. Slightly tachycardic. Soft systolic murmur. ABDOMEN: Soft. no distention EXTREMITIES: No cyanosis or clubbing. NEUROLOGIC: The patient is withdrawn. Reduced range of motion. Laboratory Tests 05/30/19 08:50: White Blood Count 8.7, Red Blood Count 3.03L, Hemoglobin 8.8L, Hematocrit 26.4L , Mean Corpuscular Volume 87, Mean Corpuscular Hemoglobin 29.1, Mean Corpuscular Hemoglobin Concent 33.4, Red Cell Distribution Width 13.5, Platelet Count 207, Mean Platelet Volume 5.6L, Neutrophils (%) (Auto) 73.7, Lymphocytes ( %) (Auto) 13.1L, Monocytes (%) (Auto) 4.6, Eosinophils (%) (Auto) 8.1H, Basophils (%) (Auto) 0.5, Sodium Level 149H, Potassium Level 2.9L, Chloride Level 116H, Carbon Dioxide Level 24, Anion Gap 9, Blood Urea Nitrogen 20H, Creatinine 1.3, Estimat Glomerular Filtration Rate , Glucose Level 141H, Calcium Level 8.0L, Total Bilirubin 0.9, Aspartate Amino Transf (AST/SGOT) 16, Alanine Aminotransferase (ALT/SGPT) 15, Alkaline Phosphatase 75, Total Protein 5.4L, Albumin 1.6L, Globulin 3.8, Albumin/Globulin Ratio 0.4L, Vancomycin Level Trough 3.6L Current Medications Medications (Trade) Dose Ordered Sig/Monster Route PRN Reason Start Time Stop Time Status Last Admin Dose Admin Albuterol/ Ipratropium (Albuterol/ Ipratropium) 3 ml Q4HRT HHN 05/27/19 03:00 06/01/19 02:59 05/30/19 14:55 Barium Sulfate (Varibar Honey) 250 ml NOW PRN MC RAD 05/28/19 10:15 05/31/19 10:10 Barium Sulfate (Varibar [place]) 240 ml NOW PRN MC RAD 05/28/19 10:15 05/31/19 10:10 Barium Sulfate (Varibar Pudding) 230 ml NOW PRN MC RAD 05/28/19 10:15 05/31/19 10:10 Dextrose/ Electrolytes 1,000 ml @ 125 mls/hr Q8H IV 05/29/19 21:00 06/28/19 20:59 05/30/19 13:55 Heparin Sodium (Porcine) (Heparin 5000 units/ml) 5,000 units EVERY 12 HOURS SUBQ 05/27/19 09:00 06/26/19 08:59 05/30/19 08:32 Pantoprazole (Protonix) 40 mg DAILY IVP 05/27/19 09:00 06/26/19 08:59 05/30/19 08:31 Piperacillin Sod/ Tazobactam Sod 3.375 gm/Sodium Chloride 110 ml @ 27.5 mls/hr EVERY 8 HOURS IVPB 05/27/19 06:00 06/01/19 05:59 05/30/19 13:55 Vancomycin HCl (Vanco rx to dose) 1 ea DAILY PRN MISC Per rx protocol 05/27/19 02:00 06/26/19 01:59 Vancomycin HCl 750 mg/Sodium Chloride 275 ml @ 183.333 mls/hr Q12HR@1000,2200 IVPB 05/30/19 10:00 06/04/19 09:59 05/30/19 10:10 Pedrito Caban MD May 30, 2019 17:34
[2019-05-31] MEDS: Albuterol/Ipratropium 3ml neb HHN SCH ×6 (02:48→23:50)
[2019-05-31 03:23] VITALS: BP 124/65
[2019-05-31 06:05] LABS: ANION GAP 10 mmol/L (5-15); BLOOD UREA NITROGEN 15 mg/dL (7-18); CALCIUM 8.4 MG/DL (8.5-10.1); CARBON DIOXIDE 23 MMOL/L (21-32); CHLORIDE 111 MMOL/L (98-107); CREATININE 1.3 MG/DL (0.55-1.30); POTASSIUM 3.4 MMOL/L (3.5-5.1); SODIUM 144 MMOL/L (136-145)
[2019-05-31] MEDS: Piperacillin/Tazobactam 3.375 GM in NS 110 ML IVPB SCH ×3 (06:41→21:22)
[2019-05-31] MEDS: D5W w/KCl 20mEq 1,000 ML IV SCH (06:44)
[2019-05-31 08:00] VITALS: BP 92/51
--- NOTE | 2019-05-31 08:02 | General Progress Note ---
Assessment/Plan Problem List: (1) ROSA (acute kidney injury) ICD Codes: N17.9 - Acute kidney failure, unspecified SNOMED: 95975056, 2747608 (2) Dehydration ICD Codes: E86.0 - Dehydration SNOMED: 13607915, 8460364 (3) Respiratory failure with hypoxia ICD Codes: J96.91 - Respiratory failure, unspecified with hypoxia SNOMED: 30962265358952365 Qualifiers: Qualified Codes: J96.01 - Acute respiratory failure with hypoxia (4) Sepsis ICD Codes: A41.9 - Sepsis, unspecified organism SNOMED: 62794983, 736772840 Qualifiers: Qualified Codes: A41.9 - Sepsis, unspecified organism; R65.20 - Severe sepsis without septic shock; J96.01 - Acute respiratory failure with hypoxia (5) UTI (urinary tract infection) ICD Codes: N39.0 - Urinary tract infection, site not specified SNOMED: 13088903, 429487140 Qualifiers: Qualified Codes: N30.00 - Acute cystitis without hematuria (6) HCAP (healthcare-associated pneumonia) ICD Codes: J18.9 - Pneumonia, unspecified organism SNOMED: 260402272, 776190484 Status: stable Assessment/Plan: cont iv abx resp rx/o2 swallow eval noted follow up labs monitor Na level/lytes ivf dcd check iron panel and stool ob echo monitor cxr follow up cultures Subjective ROS Limited/Unobtainable: No Constitutional: Reports: malaise, weakness HEENT: Reports: no symptoms Cardiovascular: Reports: no symptoms Respiratory: Reports: cough, shortness of breath Gastrointestinal/Abdominal: Reports: no symptoms Genitourinary: Reports: no symptoms Neurologic/Psychiatric: Reports: depressed, emotional problems Endocrine: Reports: no symptoms Hematologic/Lymphatic: Reports: anemia Allergies: Coded Allergies: SIMVASTATIN (Verified Allergy, Unknown, 05/26/19) All Systems: reviewed and negative except above Subjective better today, more alert. na better. low k. h/h trending down. no bleeding Objective Last 24 Hour Vital Signs Date Time Temp Pulse Resp B/P (MAP) Pulse Ox O2 Delivery O2 Flow Rate FiO2 05/31/19 07:55 95 Nasal Cannula 3.0 32 05/31/19 03:23 98.2 106 20 124/65 (84) 92 05/31/19 02:48 82 25 98 Nasal Cannula 3.0 32 80 19 95 05/30/19 23:59 100.2 86 20 113/60 (77) 96 05/30/19 23:40 Nasal Cannula 3.0 05/30/19 22:44 81 20 98 Nasal Cannula 3.0 32 84 20 96 05/30/19 20:59 97.7 91 20 110/57 (74) 92 05/30/19 19:09 80 20 97 Nasal Cannula 3.0 32 74 22 96 05/30/19 19:09 96 Nasal Cannula 3.0 32 05/30/19 16:00 99.2 86 20 128/89 (102) 94 05/30/19 14:55 82 19 97 Nasal Cannula 3.0 32 82 20 95 05/30/19 12:00 98.5 85 20 109/57 (74) 95 05/30/19 10:44 86 18 97 Nasal Cannula 3.0 32 85 20 94 05/30/19 09:00 Nasal Cannula 5.0 05/30/19 08:00 97.7 88 20 98/63 (75) 97 Intake and Output 05/30/19 05/31/19 19:00 07:00 Intake Total 2081.666 ml 1260.000 ml Output Total 500 ml 450 ml Balance 1581.666 ml 810.000 ml Intake Oral 340 ml IV Total 1741.666 ml 1260.000 ml Output Urine Total 500 ml 450 ml Laboratory Tests 05/30/19 08:50: White Blood Count 8.7, Red Blood Count 3.03L, Hemoglobin 8.8L, Hematocrit 26.4L , Mean Corpuscular Volume 87, Mean Corpuscular Hemoglobin 29.1, Mean Corpuscular Hemoglobin Concent 33.4, Red Cell Distribution Width 13.5, Platelet Count 207, Mean Platelet Volume 5.6L, Neutrophils (%) (Auto) 73.7, Lymphocytes ( %) (Auto) 13.1L, Monocytes (%) (Auto) 4.6, Eosinophils (%) (Auto) 8.1H, Basophils (%) (Auto) 0.5, Sodium Level 149H, Potassium Level 2.9L, Chloride Level 116H, Carbon Dioxide Level 24, Anion Gap 9, Blood Urea Nitrogen 20H, Creatinine 1.3, Estimat Glomerular Filtration Rate , Glucose Level 141H, Calcium Level 8.0L, Total Bilirubin 0.9, Aspartate Amino Transf (AST/SGOT) 16, Alanine Aminotransferase (ALT/SGPT) 15, Alkaline Phosphatase 75, Total Protein 5.4L, Albumin 1.6L, Globulin 3.8, Albumin/Globulin Ratio 0.4L, Vancomycin Level Trough 3.6L 05/31/19 05:00: Sodium Level 144, Potassium Level 3.4L, Chloride Level 111H, Carbon Dioxide Level 23, Anion Gap 10, Blood Urea Nitrogen 15, Creatinine 1.3, Estimat Glomerular Filtration Rate , Glucose Level 123H, Calcium Level 8.4L, Vancomycin Level Trough [Pending] Height (Feet): 5 Height (Inches): 6.00 Weight (Pounds): 138 Objective General Appearance: WD/WN, alert, confused Neck: supple Cardiovascular: regular rhythm Respiratory/Chest: rhonchi - bilaterally Abdomen: normal bowel sounds, non tender, soft, no organomegaly Edema: no edema noted Arm (L), no edema noted Arm (R), no edema noted Leg (L), no edema noted Leg (R), no edema noted Pedal (L), no edema noted Pedal (R), no edema noted 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
[2019-05-31] MEDS ORDERED: Sodium Chloride for KCL Premix X 3hrs IV SCH (09:00)
[2019-05-31] MEDS: Pantoprazole Inj IVP SCH (09:20)
[2019-05-31] MEDS: Heparin 5000 units/ml inj SUBQ SCH ×2 (09:33→20:34)
[2019-05-31] MEDS: Vancomycin 750mg/NS 275ml IVPB SCH ×4 (10:00→16:36)
--- NOTE | 2019-05-31 11:08 | Diagnostic Imaging Report ---
EXAM: XR Chest, 1 View CLINICAL HISTORY: SOB TECHNIQUE: Frontal view of the chest. COMPARISON: Chest x-ray 05/28/19 FINDINGS: Lungs: Interval worsening bilateral perihilar airspace opacities and left lower lung opacities may be worsening pulmonary edema or infiltrates. Pleural space: Probable tiny left pleural effusion. No pneumothorax. Heart: Unremarkable. No cardiomegaly. Mediastinum: Unremarkable. Bones/joints: Mild degenerative changes of the spine. IMPRESSION: 1. Interval worsening bilateral perihilar airspace opacities and left lower lung opacities may be worsening pulmonary edema or infiltrates. 2. Probable tiny left pleural effusion.
[2019-05-31 12:00] VITALS: BP 110/64
[2019-05-31 16:00] VITALS: BP 128/69
[2019-05-31 20:00] VITALS: BP 125/62
--- NOTE | 2019-05-31 20:03 | Pulmonology Progress Note ---
Assessment/Plan Assessment/Plan Pulmonary Progress Note Assessment/Plan IMPRESSION: 1. Pulmonary infiltrates, possible pulmonary edema 2. Hypernatremia. 3. Acute renal failure. 4. Toxic metabolic encephalopathy. 5. Chronic encephalopathy. 6. Parkinsonism. 7. Dementia. 8. Severe protein-calorie malnutrition. PLAN IV antibiotics diurese PRN respiratory care oxygen monitor imaging and repeat monitor BNP and optimize close follow up DVT prophylaxis aspiration precautions impression, plan, and exam edited and reviewed in detail care discussed with RN Subjective ROS Limited/Unobtainable: Yes Allergies: Coded Allergies: SIMVASTATIN (Verified Allergy, Unknown, 05/26/19) Subjective reviewed care on oxygen no new complaints Objective Vital Signs Noted Objective GENERAL: The patient is an ill-appearing male, currently on [place] oxygen. HEENT: Negative. Extraocular movements are difficult to assess. Oropharynx with poor overall care. Dry mucous membranes. NECK: Supple. LUNGS: With some rhonchi and crackles at both bases. CARDIAC: S1 and S2. Slightly tachycardic. Soft systolic murmur. ABDOMEN: Soft. no distention EXTREMITIES: No cyanosis or clubbing. NEUROLOGIC: The patient is withdrawn. Reduced range of motion. Laboratory Tests Noted 05/30/19 08:50: White Blood Count 8.7, Red Blood Count 3.03L, Hemoglobin 8.8L, Hematocrit 26.4L , Mean Corpuscular Volume 87, Mean Corpuscular Hemoglobin 29.1, Mean Corpuscular Hemoglobin Concent 33.4, Red Cell Distribution Width 13.5, Platelet Count 207, Mean Platelet Volume 5.6L, Neutrophils (%) (Auto) 73.7, Lymphocytes ( %) (Auto) 13.1L, Monocytes (%) (Auto) 4.6, Eosinophils (%) (Auto) 8.1H, Basophils (%) (Auto) 0.5, Sodium Level 149H, Potassium Level 2.9L, Chloride Level 116H, Carbon Dioxide Level 24, Anion Gap 9, Blood Urea Nitrogen 20H, Creatinine 1.3, Estimat Glomerular Filtration Rate , Glucose Level 141H, Calcium Level 8.0L, Total Bilirubin 0.9, Aspartate Amino Transf (AST/SGOT) 16, Alanine Aminotransferase (ALT/SGPT) 15, Alkaline Phosphatase 75, Total Protein 5.4L, Albumin 1.6L, Globulin 3.8, Albumin/Globulin Ratio 0.4L, Vancomycin Level Trough 3.6L Current Medications Medications (Trade) Dose Ordered Sig/Monster Route PRN Reason Start Time Stop Time Status Last Admin Dose Admin Albuterol/ Ipratropium (Albuterol/ Ipratropium) 3 ml Q4HRT HHN 05/27/19 03:00 06/01/19 02:59 05/30/19 14:55 Barium Sulfate (Varibar Honey) 250 ml NOW PRN MC RAD 05/28/19 10:15 05/31/19 10:10 Barium Sulfate (Varibar [place]) 240 ml NOW PRN MC RAD 05/28/19 10:15 05/31/19 10:10 Barium Sulfate (Varibar Pudding) 230 ml NOW PRN MC RAD 05/28/19 10:15 05/31/19 10:10 Dextrose/ Electrolytes 1,000 ml @ 125 mls/hr Q8H IV 05/29/19 21:00 06/28/19 20:59 05/30/19 13:55 Heparin Sodium (Porcine) (Heparin 5000 units/ml) 5,000 units EVERY 12 HOURS SUBQ 05/27/19 09:00 06/26/19 08:59 05/30/19 08:32 Pantoprazole (Protonix) 40 mg DAILY IVP 05/27/19 09:00 06/26/19 08:59 05/30/19 08:31 Piperacillin Sod/ Tazobactam Sod 3.375 gm/Sodium Chloride 110 ml @ 27.5 mls/hr EVERY 8 HOURS IVPB 05/27/19 06:00 06/01/19 05:59 05/30/19 13:55 Vancomycin HCl (Vanco rx to dose) 1 ea DAILY PRN MISC Per rx protocol 05/27/19 02:00 06/26/19 01:59 Vancomycin HCl 750 mg/Sodium Chloride 275 ml @ 183.333 mls/hr Q12HR@1000,2200 IVPB 05/30/19 10:00 06/04/19 09:59 05/30/19 10:10 Subjective ROS Limited/Unobtainable: No Allergies: Coded Allergies: SIMVASTATIN (Verified Allergy, Unknown, 05/26/19) Objective Last 24 Hour Vital Signs Date Time Temp Pulse Resp B/P (MAP) Pulse Ox O2 Delivery O2 Flow Rate FiO2 2/8/20 19:52 74 20 92 Nasal Cannula 3.0 32 05/31/19 19:52 92 Nasal Cannula 3.0 32 05/31/19 16:00 99.4 85 18 128/69 (88) 94 05/31/19 15:22 76 16 100 Nasal Cannula 3.0 32 79 20 96 05/31/19 12:00 99.0 86 20 110/64 (79) 95 05/31/19 11:27 74 18 99 Nasal Cannula 3.0 32 69 18 97 05/31/19 09:00 Nasal Cannula 3.0 05/31/19 08:03 98 20 98 Nasal Cannula 3.0 32 95 16 95 05/31/19 08:00 99.2 87 20 92/51 (65) 94 05/31/19 07:55 95 Nasal Cannula 3.0 32 05/31/19 03:23 98.2 106 20 124/65 (84) 92 05/31/19 02:48 82 25 98 Nasal Cannula 3.0 32 80 19 95 05/30/19 23:59 100.2 86 20 113/60 (77) 96 05/30/19 23:40 Nasal Cannula 3.0 05/30/19 22:44 81 20 98 Nasal Cannula 3.0 32 84 20 96 05/30/19 20:59 97.7 91 20 110/57 (74) 92 Intake and Output 05/30/19 05/31/19 19:00 07:00 Intake Total 2081.666 ml 1260.000 ml Output Total 500 ml 450 ml Balance 1581.666 ml 810.000 ml Intake Oral 340 ml IV Total 1741.666 ml 1260.000 ml Output Urine Total 500 ml 450 ml Laboratory Tests 05/31/19 05:00: Sodium Level 144, Potassium Level 3.4L, Chloride Level 111H, Carbon Dioxide Level 23, Anion Gap 10, Blood Urea Nitrogen 15, Creatinine 1.3, Estimat Glomerular Filtration Rate , Glucose Level 123H, Calcium Level 8.4L, Vancomycin Level Trough [Pending] Current Medications Medications (Trade) Dose Ordered Sig/Monster Route PRN Reason Start Time Stop Time Status Last Admin Dose Admin Albuterol/ Ipratropium (Albuterol/ Ipratropium) 3 ml Q4HRT HHN 05/27/19 03:00 06/01/19 02:59 05/31/19 19:52 Heparin Sodium (Porcine) (Heparin 5000 units/ml) 5,000 units EVERY 12 HOURS SUBQ 05/27/19 09:00 06/26/19 08:59 05/31/19 09:33 Pantoprazole (Protonix) 40 mg DAILY IVP 05/27/19 09:00 06/26/19 08:59 05/31/19 09:20 Piperacillin Sod/ Tazobactam Sod 3.375 gm/Sodium Chloride 110 ml @ 27.5 mls/hr EVERY 8 HOURS IVPB 05/27/19 06:00 06/05/19 05:59 05/31/19 06:41 Vancomycin HCl (Vanco rx to dose) 1 ea DAILY PRN MISC Per rx protocol 05/27/19 02:00 06/26/19 01:59 Vancomycin HCl 750 mg/Sodium Chloride 275 ml @ 183.333 mls/hr Q12H IVPB 05/31/19 16:00 06/05/19 15:59 05/31/19 16:36 Hunter Bocanegra MD May 31, 2019 20:03
[2019-05-31 23:55] VITALS: BP 121/68
[2019-06-01] MEDS: Vancomycin 750mg/NS 275ml IVPB SCH ×4 (03:43→17:32)
[2019-06-01 04:00] VITALS: BP 126/63
[2019-06-01] MEDS: Piperacillin/Tazobactam 3.375 GM in NS 110 ML IVPB SCH ×3 (05:02→21:33)
[2019-06-01 07:39] LABS: % IRON SATURATION 9 % (15-50); IRON 9 ug/dL (50-175); TOTAL IRON BINDING CAPACITY 95 ug/dL (250-450)
[2019-06-01 07:41] LABS: ALANINE AMINOTRANSFERASE 17 U/L (12-78); ALBUMIN 1.7 G/DL (3.4-5.0); ALBUMIN/GLOBULIN RATIO 0.4 (1.0-2.7); ALKALINE PHOSPHATASE 86 U/L (46-116); ANION GAP 10 mmol/L (5-15); ASPARTATE AMINO TRANSFERASE 20 U/L (15-37); BILIRUBIN,TOTAL 0.9 MG/DL (0.2-1.0); BLOOD UREA NITROGEN 13 mg/dL (7-18); CALCIUM 8.6 MG/DL (8.5-10.1); CARBON DIOXIDE 23 MMOL/L (21-32); CHLORIDE 113 MMOL/L (98-107); CREATININE 1.3 MG/DL (0.55-1.30); POTASSIUM 4.1 MMOL/L (3.5-5.1); SODIUM 146 MMOL/L (136-145)
[2019-06-01 08:00] VITALS: BP 163/71
[2019-06-01] MEDS: Pantoprazole Inj IVP SCH (09:35)
[2019-06-01] MEDS: Heparin 5000 units/ml inj SUBQ SCH ×2 (09:37→20:26)
[2019-06-01 12:00] VITALS: BP 127/68
--- NOTE | 2019-06-01 13:56 | General Progress Note ---
Assessment/Plan Problem List: (1) ROSA (acute kidney injury) ICD Codes: N17.9 - Acute kidney failure, unspecified SNOMED: 94221712, 8630785 (2) Dehydration ICD Codes: E86.0 - Dehydration SNOMED: 34883825, 9707266 (3) Respiratory failure with hypoxia ICD Codes: J96.91 - Respiratory failure, unspecified with hypoxia SNOMED: 59024752944153682 Qualifiers: Qualified Codes: J96.01 - Acute respiratory failure with hypoxia (4) Sepsis ICD Codes: A41.9 - Sepsis, unspecified organism SNOMED: 94494504, 198809785 Qualifiers: Qualified Codes: A41.9 - Sepsis, unspecified organism; R65.20 - Severe sepsis without septic shock; J96.01 - Acute respiratory failure with hypoxia (5) UTI (urinary tract infection) ICD Codes: N39.0 - Urinary tract infection, site not specified SNOMED: 59107827, 926914591 Qualifiers: Qualified Codes: N30.00 - Acute cystitis without hematuria (6) HCAP (healthcare-associated pneumonia) ICD Codes: J18.9 - Pneumonia, unspecified organism SNOMED: 511239706, 664119422 Status: stable Assessment/Plan: cont iv abx resp rx/o2 swallow eval noted follow up labs monitor Na level/lytes check iron panel and stool ob echo monitor cxr follow up cultures Subjective ROS Limited/Unobtainable: No Constitutional: Reports: malaise, weakness HEENT: Reports: no symptoms Cardiovascular: Reports: no symptoms Respiratory: Reports: cough, shortness of breath Gastrointestinal/Abdominal: Reports: poor appetite, poor fluid intake Genitourinary: Reports: no symptoms Neurologic/Psychiatric: Reports: anxiety, depressed, emotional problems Endocrine: Reports: no symptoms Hematologic/Lymphatic: Reports: no symptoms Allergies: Coded Allergies: SIMVASTATIN (Verified Allergy, Unknown, 05/26/19) All Systems: reviewed and negative except above Subjective no new complaints. on iv abx. cxr worse? Objective Last 24 Hour Vital Signs Date Time Temp Pulse Resp B/P (MAP) Pulse Ox O2 Delivery O2 Flow Rate FiO2 06/01/19 12:00 97.7 86 17 127/68 (87) 94 06/01/19 09:00 Nasal Cannula 5.0 06/01/19 08:00 98.1 74 20 163/71 (101) 92 06/01/19 04:00 99.4 87 18 126/63 (84) 95 06/01/19 03:37 78 18 96 Nasal Cannula 3.0 32 06/01/19 00:00 79 20 99 Nasal Cannula 3.0 32 05/31/19 23:55 99.3 88 20 121/68 (85) 95 05/31/19 23:50 78 20 94 Nasal Cannula 3.0 32 05/31/19 21:00 Nasal Cannula 5.0 05/31/19 20:02 77 20 98 Nasal Cannula 3.0 32 05/31/19 20:00 99.2 89 20 125/62 (83) 92 05/31/19 19:52 74 20 92 Nasal Cannula 3.0 32 05/31/19 19:52 92 Nasal Cannula 3.0 32 05/31/19 16:00 99.4 85 18 128/69 (88) 94 05/31/19 15:22 76 16 100 Nasal Cannula 3.0 32 79 20 96 Intake and Output 05/31/19 06/01/19 19:00 07:00 Intake Total 620 ml 230.3 ml Output Total 600 ml 900 ml Balance 20 ml -669.7 ml Intake Oral 195 ml 120 ml IV Total 425 ml 110.3 ml Output Urine Total 600 ml 900 ml Laboratory Tests 06/01/19 06:15: Sodium Level 146H, Potassium Level 4.1, Chloride Level 113H, Carbon Dioxide Level 23, Anion Gap 10, Blood Urea Nitrogen 13, Creatinine 1.3, Estimat Glomerular Filtration Rate , Glucose Level 72L, Calcium Level 8.6, Iron Level 9L , Total Iron Binding Capacity 95L, Percent Iron Saturation 9L, Unsaturated Iron Binding 86L, Total Bilirubin 0.9, Aspartate Amino Transf (AST/SGOT) 20, Alanine Aminotransferase (ALT/SGPT) 17, Alkaline Phosphatase 86, Total Protein 6.3L, Albumin 1.7L, Globulin 4.6, Albumin/Globulin Ratio 0.4L, Vancomycin Level Trough [Pending] Height (Feet): 5 Height (Inches): 6.00 Weight (Pounds): 138 Objective General Appearance: WD/WN, alert, confused Neck: supple Cardiovascular: regular rhythm Respiratory/Chest: rhonchi - bilaterally Abdomen: normal bowel sounds, non tender, soft, no organomegaly Edema: no edema noted Arm (L), no edema noted Arm (R), no edema noted Leg (L), no edema noted Leg (R), no edema noted Pedal (L), no edema noted Pedal (R), no edema noted 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
[2019-06-01 16:00] VITALS: BP 114/66
[2019-06-01 20:12] VITALS: BP 101/75
--- NOTE | 2019-06-01 21:02 | Pulmonology Progress Note ---
Assessment/Plan Assessment/Plan Pulmonary Progress Note Assessment/Plan IMPRESSION: 1. Pulmonary infiltrates, possible pulmonary edema 2. Hypernatremia. 3. Acute renal failure. 4. Toxic metabolic encephalopathy. 5. Chronic encephalopathy. 6. Parkinsonism. 7. Dementia. 8. Severe protein-calorie malnutrition. PLAN IV antibiotics diurese PRN respiratory care oxygen monitor imaging and repeat monitor BNP and optimize close follow up DVT prophylaxis aspiration precautions impression, plan, and exam edited and reviewed in detail care discussed with RN Subjective ROS Limited/Unobtainable: Yes Allergies: Coded Allergies: SIMVASTATIN (Verified Allergy, Unknown, 05/26/19) Subjective reviewed care on oxygen no new complaints, stable overnight Objective Vital Signs Noted Objective GENERAL: The patient is an ill-appearing male, currently on [place] oxygen. HEENT: Negative. Extraocular movements are difficult to assess. Oropharynx with poor overall care. Dry mucous membranes. NECK: Supple. LUNGS: CTAB CARDIAC: S1 and S2. Slightly tachycardic. Soft systolic murmur. ABDOMEN: Soft. no distention EXTREMITIES: No cyanosis or clubbing. NEUROLOGIC: The patient is withdrawn. Reduced range of motion. Laboratory Tests Noted Subjective ROS Limited/Unobtainable: No Allergies: Coded Allergies: SIMVASTATIN (Verified Allergy, Unknown, 05/26/19) Objective Last 24 Hour Vital Signs Date Time Temp Pulse Resp B/P (MAP) Pulse Ox O2 Delivery O2 Flow Rate FiO2 06/01/19 20:12 99.8 96 19 101/75 (84) 94 06/01/19 16:00 99.6 98 19 114/66 (82) 92 06/01/19 12:00 97.7 86 17 127/68 (87) 94 06/01/19 09:00 Nasal Cannula 5.0 06/01/19 08:00 98.1 74 20 163/71 (101) 92 06/01/19 04:00 99.4 87 18 126/63 (84) 95 06/01/19 03:37 78 18 96 Nasal Cannula 3.0 32 06/01/19 00:00 79 20 99 Nasal Cannula 3.0 32 05/31/19 23:55 99.3 88 20 121/68 (85) 95 05/31/19 23:50 78 20 94 Nasal Cannula 3.0 32 Intake and Output 05/31/19 06/01/19 19:00 07:00 Intake Total 620 ml 230.3 ml Output Total 600 ml 900 ml Balance 20 ml -669.7 ml Intake Oral 195 ml 120 ml IV Total 425 ml 110.3 ml Output Urine Total 600 ml 900 ml Laboratory Tests 06/01/19 06:15: Sodium Level 146H, Potassium Level 4.1, Chloride Level 113H, Carbon Dioxide Level 23, Anion Gap 10, Blood Urea Nitrogen 13, Creatinine 1.3, Estimat Glomerular Filtration Rate , Glucose Level 72L, Calcium Level 8.6, Iron Level 9L , Total Iron Binding Capacity 95L, Percent Iron Saturation 9L, Unsaturated Iron Binding 86L, Total Bilirubin 0.9, Aspartate Amino Transf (AST/SGOT) 20, Alanine Aminotransferase (ALT/SGPT) 17, Alkaline Phosphatase 86, Total Protein 6.3L, Albumin 1.7L, Globulin 4.6, Albumin/Globulin Ratio 0.4L 06/01/19 15:00: Vancomycin Level Trough 14.6H Current Medications Medications (Trade) Dose Ordered Sig/Monster Route PRN Reason Start Time Stop Time Status Last Admin Dose Admin Heparin Sodium (Porcine) (Heparin 5000 units/ml) 5,000 units EVERY 12 HOURS SUBQ 05/27/19 09:00 06/26/19 08:59 06/01/19 20:26 Pantoprazole (Protonix) 40 mg DAILY IVP 05/27/19 09:00 06/26/19 08:59 06/01/19 09:35 Piperacillin Sod/ Tazobactam Sod 3.375 gm/Sodium Chloride 110 ml @ 27.5 mls/hr EVERY 8 HOURS IVPB 05/27/19 06:00 06/05/19 05:59 06/01/19 13:47 Vancomycin HCl (Vanco rx to dose) 1 ea DAILY PRN MISC Per rx protocol 05/27/19 02:00 06/26/19 01:59 Vancomycin HCl 750 mg/Sodium Chloride 275 ml @ 183.333 mls/hr Q12H IVPB 05/31/19 16:00 06/05/19 15:59 06/01/19 17:32 Hunter Bocanegra MD Jun 01, 2019 21:02
[2019-06-01 23:51] VITALS: BP 112/71
[2019-06-02] MEDS: Vancomycin 750mg/NS 275ml IVPB SCH ×4 (03:00→15:38)
[2019-06-02 04:00] VITALS: BP 127/76
[2019-06-02] MEDS: Piperacillin/Tazobactam 3.375 GM in NS 110 ML IVPB SCH ×3 (05:04→21:37)
--- NOTE | 2019-06-02 05:28 | General Progress Note ---
Assessment/Plan Problem List: (1) ROSA (acute kidney injury) ICD Codes: N17.9 - Acute kidney failure, unspecified SNOMED: 42810030, 8396556 (2) Dehydration ICD Codes: E86.0 - Dehydration SNOMED: 92916530, 8868816 (3) Respiratory failure with hypoxia ICD Codes: J96.91 - Respiratory failure, unspecified with hypoxia SNOMED: 91467984777832969 Qualifiers: Qualified Codes: J96.01 - Acute respiratory failure with hypoxia (4) Sepsis ICD Codes: A41.9 - Sepsis, unspecified organism SNOMED: 68256214, 827399971 Qualifiers: Qualified Codes: A41.9 - Sepsis, unspecified organism; R65.20 - Severe sepsis without septic shock; J96.01 - Acute respiratory failure with hypoxia (5) UTI (urinary tract infection) ICD Codes: N39.0 - Urinary tract infection, site not specified SNOMED: 68649086, 052416395 Qualifiers: Qualified Codes: N30.00 - Acute cystitis without hematuria (6) HCAP (healthcare-associated pneumonia) ICD Codes: J18.9 - Pneumonia, unspecified organism SNOMED: 860611857, 458818339 Status: stable Assessment/Plan: cont iv abx resume hypotonic ivf lasix x 1 resp rx/o2 swallow eval noted follow up labs check iron panel and stool ob megace echo monitor cxr follow up cultures Subjective ROS Limited/Unobtainable: No Constitutional: Reports: malaise, weakness HEENT: Reports: no symptoms Cardiovascular: Reports: no symptoms Respiratory: Reports: cough, shortness of breath Gastrointestinal/Abdominal: Reports: poor appetite, poor fluid intake Genitourinary: Reports: no symptoms Neurologic/Psychiatric: Reports: anxiety, depressed Endocrine: Reports: no symptoms Hematologic/Lymphatic: Reports: no symptoms Allergies: Coded Allergies: SIMVASTATIN (Verified Allergy, Unknown, 05/26/19) All Systems: reviewed and negative except above Subjective no complaints. +constipation. poor po intake. on iv abx. Objective Last 24 Hour Vital Signs Date Time Temp Pulse Resp B/P (MAP) Pulse Ox O2 Delivery O2 Flow Rate FiO2 06/02/19 04:00 99.4 96 19 127/76 (93) 95 06/01/19 23:51 99.0 95 19 112/71 (85) 95 06/01/19 21:00 Nasal Cannula 5.0 06/01/19 20:12 99.8 96 19 101/75 (84) 94 06/01/19 20:06 96 Nasal Cannula 3.0 32 06/01/19 16:00 99.6 98 19 114/66 (82) 92 06/01/19 12:00 97.7 86 17 127/68 (87) 94 06/01/19 09:00 Nasal Cannula 5.0 06/01/19 08:00 98.1 74 20 163/71 (101) 92 Intake and Output 06/01/19 06/02/19 19:00 07:00 Intake Total 840 ml 82.5 ml Output Total 500 ml Balance 340 ml 82.5 ml Intake Oral 840 ml IV Total 82.5 ml Output Urine Total 500 ml Laboratory Tests 06/01/19 06:15: Sodium Level 146H, Potassium Level 4.1, Chloride Level 113H, Carbon Dioxide Level 23, Anion Gap 10, Blood Urea Nitrogen 13, Creatinine 1.3, Estimat Glomerular Filtration Rate , Glucose Level 72L, Calcium Level 8.6, Iron Level 9L , Total Iron Binding Capacity 95L, Percent Iron Saturation 9L, Unsaturated Iron Binding 86L, Total Bilirubin 0.9, Aspartate Amino Transf (AST/SGOT) 20, Alanine Aminotransferase (ALT/SGPT) 17, Alkaline Phosphatase 86, Total Protein 6.3L, Albumin 1.7L, Globulin 4.6, Albumin/Globulin Ratio 0.4L 06/01/19 15:00: Vancomycin Level Trough 14.6H Height (Feet): 5 Height (Inches): 6.00 Weight (Pounds): 138 Objective General Appearance: WD/WN, alert, confused Neck: supple Cardiovascular: regular rhythm Respiratory/Chest: rhonchi - bilaterally Abdomen: normal bowel sounds, non tender, soft, no organomegaly Edema: no edema noted Arm (L), no edema noted Arm (R), no edema noted Leg (L), no edema noted Leg (R), no edema noted Pedal (L), no edema noted Pedal (R), no edema noted 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
[2019-06-02] MEDS ORDERED: Fleet's Enema 133ml RECTAL SCH (05:30)
[2019-06-02] MEDS ORDERED: Miralax 17gm pkt ORAL PRN (05:30)
[2019-06-02 08:00] VITALS: BP 101/59
--- NOTE | 2019-06-02 08:41 | Pulmonology Progress Note ---
Assessment/Plan Assessment/Plan IMPRESSION: 1. Pulmonary infiltrates, worsening 2. Hypernatremia. 3. Acute renal failure. 4. Toxic metabolic encephalopathy. 5. Chronic encephalopathy. 6. Parkinsonism. 7. Dementia. 8. Severe protein-calorie malnutrition. PLAN keep negative respiratory care oxygen monitor imaging and consider CT monitor BNP and optimize close follow up DVT prophylaxis aspiration precautions as is antibiotics reviewed impression, plan, and exam edited and reviewed in detail care discussed with RN Subjective ROS Limited/Unobtainable: Yes Allergies: Coded Allergies: SIMVASTATIN (Verified Allergy, Unknown, 05/26/19) Subjective reviewed care on oxygen as is CXR worse some cough Objective Last 24 Hour Vital Signs Date Time Temp Pulse Resp B/P (MAP) Pulse Ox O2 Delivery O2 Flow Rate FiO2 06/02/19 08:00 98.8 83 16 101/59 (73) 97 06/02/19 04:00 99.4 96 19 127/76 (93) 95 06/01/19 23:51 99.0 95 19 112/71 (85) 95 06/01/19 21:00 Nasal Cannula 5.0 06/01/19 20:12 99.8 96 19 101/75 (84) 94 06/01/19 20:06 96 Nasal Cannula 3.0 32 06/01/19 16:00 99.6 98 19 114/66 (82) 92 06/01/19 12:00 97.7 86 17 127/68 (87) 94 06/01/19 09:00 Nasal Cannula 5.0 Intake and Output 06/01/19 06/02/19 19:00 07:00 Intake Total 840 ml 202.5 ml Output Total 500 ml 2 ml Balance 340 ml 200.5 ml Intake Oral 840 ml 120 ml IV Total 82.5 ml Output Urine Total 500 ml 2 ml # Bowel Movements 1 Objective GENERAL: The patient is an ill-appearing male, currently on oxygen. HEENT: Negative. Extraocular movements are difficult to assess. Oropharynx with poor overall care. Dry mucous membranes. NECK: Supple. LUNGS: scattered rhonchi and crackles at both bases. CARDIAC: S1 and S2. Slightly tachycardic. Soft systolic murmur. ABDOMEN: Soft. no distention EXTREMITIES: No cyanosis or clubbing. NEUROLOGIC: The patient is withdrawn. Reduced range of motion. Laboratory Tests 06/01/19 15:00: Vancomycin Level Trough 14.6H Current Medications Medications (Trade) Dose Ordered Sig/Monster Route PRN Reason Start Time Stop Time Status Last Admin Dose Admin Dextrose 1,000 ml @ 100 mls/hr Q10H IV 06/02/19 05:30 07/02/19 05:29 06/02/19 05:59 Docusate Sodium (Colace) 100 mg TWICE A DAY ORAL 06/02/19 09:00 07/02/19 08:59 Heparin Sodium (Porcine) (Heparin 5000 units/ml) 5,000 units EVERY 12 HOURS SUBQ 05/27/19 09:00 06/26/19 08:59 06/01/19 20:26 Megestrol Acetate (Megace) 400 mg TWICE A DAY ORAL 06/02/19 09:00 07/02/19 08:59 Mirtazapine (Remeron) 7.5 mg BEDTIME ORAL 06/02/19 21:00 07/02/19 20:59 Pantoprazole (Protonix) 40 mg DAILY IVP 05/27/19 09:00 06/26/19 08:59 06/01/19 09:35 Piperacillin Sod/ Tazobactam Sod 3.375 gm/Sodium Chloride 110 ml @ 27.5 mls/hr EVERY 8 HOURS IVPB 05/27/19 06:00 06/05/19 05:59 06/02/19 05:04 Polyethylene Glycol (Miralax) 17 gm DAILY PRN ORAL Constipation 06/02/19 05:30 07/02/19 05:29 Vancomycin HCl (Vanco rx to dose) 1 ea DAILY PRN MISC Per rx protocol 05/27/19 02:00 06/26/19 01:59 Vancomycin HCl 750 mg/Sodium Chloride 275 ml @ 183.333 mls/hr Q12H IVPB 05/31/19 16:00 06/05/19 15:59 06/02/19 03:00 Pedrito Caban MD Jun 02, 2019 08:41
[2019-06-02] MEDS: Pantoprazole Inj IVP SCH (10:13)
[2019-06-02] MEDS: Docusate 100mg cap ORAL SCH ×2 (10:13→17:22)
[2019-06-02] MEDS: Megace 400mg/10ml Susp ORAL SCH ×2 (10:13→17:22)
[2019-06-02] MEDS: Heparin 5000 units/ml inj SUBQ SCH ×2 (10:16→21:36)
--- NOTE | 2019-06-02 11:41 | Diagnostic Imaging Report ---
Indication: Chest pain Technique: Continuous helical transaxial imaging of the chest was obtained from the thoracic inlet to the upper abdomen. No intravenous contrast was administered. Coronal 2-D reformats were also obtained. Total Dose length Product (DLP): 833.[address] Dose Index Volume (CTDIvol): 16.8 mGy Comparison: none Findings: There are extensive infiltrates present within the lungs predominating in the lower lobes with some involvement of the upper lobe especially on the right. The infiltrates characterized by areas of airspace consolidation, groundglass opacities primarily. Air bronchograms noted due to areas of consolidation. The lungs also notable for areas of hyperlucency particularly in the upper lobes consistent with emphysema. Bilateral pleural effusions are present. These appear small to moderate in size. Small lymph nodes are demonstrated in mediastinum. Aorta is moderately ectatic and calcified. Study is limited due to the nonadministration of IV contrast material. Visualized part of the upper abdomen is unremarkable. There is a hiatal hernia. There is narrowing of intervertebral discs and accompanying endplate osteophyte formation. Hypertrophied facet joints also demonstrated. IMPRESSION: Airspace/groundglass opacities demonstrated throughout both lung cast. Findings may be related to pulmonary edema or may be infectious/inflammatory in nature. Correlate clinically. COPD/emphysema Small to moderate bilateral pleural effusions. Arterial vascular disease. Degenerative changes of the spine The CT scanner at [facility] is accredited by the [employer] and the scans are performed using dose optimization techniques as appropriate to a performed exam including Automatic Exposure control.
[2019-06-02 12:00] VITALS: BP 89/53
[2019-06-02 16:00] VITALS: BP 104/55
[2019-06-02 20:00] VITALS: BP 103/59
[2019-06-03] VITALS (9 sets, daily range): BP systolic 78–117; BP diastolic 43–63
[2019-06-03] MEDS: Vancomycin 750mg/NS 275ml IVPB SCH ×2 (04:44)
[2019-06-03] MEDS: Piperacillin/Tazobactam 3.375 GM in NS 110 ML IVPB SCH ×3 (06:39→22:31)
[2019-06-03 07:12] LABS: ALANINE AMINOTRANSFERASE 14 U/L (12-78); ALBUMIN 1.5 G/DL (3.4-5.0); ALBUMIN/GLOBULIN RATIO 0.3 (1.0-2.7); ALKALINE PHOSPHATASE 79 U/L (46-116); ANION GAP 9 mmol/L (5-15); ASPARTATE AMINO TRANSFERASE 17 U/L (15-37); BILIRUBIN,TOTAL 0.6 MG/DL (0.2-1.0); BLOOD UREA NITROGEN 18 mg/dL (7-18); CALCIUM 8.4 MG/DL (8.5-10.1); CARBON DIOXIDE 26 MMOL/L (21-32); CHLORIDE 107 MMOL/L (98-107); CREATININE 1.4 MG/DL (0.55-1.30); POTASSIUM 3.4 MMOL/L (3.5-5.1); SODIUM 142 MMOL/L (136-145)
--- NOTE | 2019-06-03 08:24 | Pulmonology Progress Note ---
Assessment/Plan Assessment/Plan IMPRESSION: 1. Pulmonary infiltrates, with bilateral effusions 2. Hypernatremia. 3. Acute renal failure. 4. Toxic metabolic encephalopathy. 5. Chronic encephalopathy. 6. Parkinsonism. 7. Dementia. 8. Severe protein-calorie malnutrition. PLAN elevate head respiratory care oxygen as needed monitor imaging - still appears to be pulmonary edema with effusions monitor BNP and optimize close follow up DVT prophylaxis aspiration precautions as is antibiotics reviewed impression, plan, and exam edited and reviewed in detail care discussed with RN Subjective Allergies: Coded Allergies: SIMVASTATIN (Verified Allergy, Unknown, 05/26/19) Subjective reviewed care on oxygen as is CXR repeat pending noted congestion Objective Last 24 Hour Vital Signs Date Time Temp Pulse Resp B/P (MAP) Pulse Ox O2 Delivery O2 Flow Rate FiO2 06/03/19 04:00 98.4 68 20 113/57 (75) 94 06/03/19 02:23 94 Nasal Cannula 3.0 32 06/03/19 00:00 98.0 81 20 100/58 (72) 93 06/02/19 21:00 Nasal Cannula 3.0 06/02/19 20:00 97.6 80 18 103/59 (74) 93 06/02/19 16:00 97.9 82 16 104/55 (71) 93 06/02/19 12:00 98.7 79 17 89/53 (65) 98 06/02/19 09:37 95 Nasal Cannula 3.0 32 06/02/19 09:00 Nasal Cannula 5.0 Intake and Output 06/02/19 06/03/19 19:00 07:00 Intake Total 1985.000 ml 507.5 ml Output Total 1400 ml 300 ml Balance 585.000 ml 207.5 ml Intake Oral 500 ml 180 ml IV Total 1485.000 ml 327.5 ml Output Urine Total 1400 ml 300 ml # Voids 1 # Bowel Movements 2 1 Objective GENERAL: The patient is an ill-appearing male, currently on oxygen. HEENT: Negative. Extraocular movements are difficult to assess. Oropharynx with poor overall care. Dry mucous membranes. NECK: Supple. LUNGS: scattered rhonchi and crackles at both bases. CARDIAC: S1 and S2. Slightly tachycardic. Soft systolic murmur. ABDOMEN: Soft. no distention EXTREMITIES: No cyanosis or clubbing. NEUROLOGIC: The patient is withdrawn. Reduced range of motion. Laboratory Tests 06/03/19 05:40: Sodium Level 142, Potassium Level 3.4L, Chloride Level 107, Carbon Dioxide Level 26, Anion Gap 9, Blood Urea Nitrogen 18, Creatinine 1.4H, Estimat Glomerular Filtration Rate , Glucose Level 117H, Calcium Level 8.4L, Magnesium Level 1.7L, Total Bilirubin 0.6, Aspartate Amino Transf (AST/SGOT) 17, Alanine Aminotransferase (ALT/SGPT) 14, Alkaline Phosphatase 79, Total Protein 6.3L, Albumin 1.5L, Globulin 4.8, Albumin/Globulin Ratio 0.3L Current Medications Medications (Trade) Dose Ordered Sig/Monster Route PRN Reason Start Time Stop Time Status Last Admin Dose Admin Dextrose 1,000 ml @ 100 mls/hr Q10H IV 06/02/19 05:30 07/02/19 05:29 06/03/19 02:12 Docusate Sodium (Colace) 100 mg TWICE A DAY ORAL 06/02/19 09:00 07/02/19 08:59 06/02/19 17:22 Heparin Sodium (Porcine) (Heparin 5000 units/ml) 5,000 units EVERY 12 HOURS SUBQ 05/27/19 09:00 06/26/19 08:59 06/02/19 21:36 Megestrol Acetate (Megace) 400 mg TWICE A DAY ORAL 06/02/19 09:00 07/02/19 08:59 06/02/19 17:22 Mirtazapine (Remeron) 7.5 mg BEDTIME ORAL 06/02/19 21:00 07/02/19 20:59 06/02/19 21:35 Pantoprazole (Protonix) 40 mg DAILY IVP 05/27/19 09:00 06/26/19 08:59 06/02/19 10:13 Piperacillin Sod/ Tazobactam Sod 3.375 gm/Sodium Chloride 110 ml @ 27.5 mls/hr EVERY 8 HOURS IVPB 05/27/19 06:00 06/05/19 05:59 06/03/19 06:39 Polyethylene Glycol (Miralax) 17 gm DAILY PRN ORAL Constipation 06/02/19 05:30 07/02/19 05:29 Vancomycin HCl (Vanco rx to dose) 1 ea DAILY PRN MISC Per rx protocol 05/27/19 02:00 06/26/19 01:59 Vancomycin HCl 750 mg/Sodium Chloride 275 ml @ 183.333 mls/hr Q12H IVPB 05/31/19 16:00 06/05/19 15:59 06/03/19 04:44 Pedrito Caban MD Jun 03, 2019 08:23
[2019-06-03] MEDS: Pantoprazole Inj IVP SCH (08:41)
[2019-06-03] MEDS: Docusate 100mg cap ORAL SCH ×2 (08:41→17:01)
[2019-06-03] MEDS: Megace 400mg/10ml Susp ORAL SCH ×2 (08:41→17:01)
[2019-06-03] MEDS: Heparin 5000 units/ml inj SUBQ SCH ×2 (08:42→21:43)
--- NOTE | 2019-06-03 19:18 | General Progress Note ---
Assessment/Plan Problem List: (1) ROSA (acute kidney injury) ICD Codes: N17.9 - Acute kidney failure, unspecified SNOMED: 82192729, 4775495 (2) Dehydration ICD Codes: E86.0 - Dehydration SNOMED: 87509660, 4911338 (3) Respiratory failure with hypoxia ICD Codes: J96.91 - Respiratory failure, unspecified with hypoxia SNOMED: 29756698929947998 Qualifiers: Qualified Codes: J96.01 - Acute respiratory failure with hypoxia (4) Sepsis ICD Codes: A41.9 - Sepsis, unspecified organism SNOMED: 18201518, 067540207 Qualifiers: Qualified Codes: A41.9 - Sepsis, unspecified organism; R65.20 - Severe sepsis without septic shock; J96.01 - Acute respiratory failure with hypoxia (5) UTI (urinary tract infection) ICD Codes: N39.0 - Urinary tract infection, site not specified SNOMED: 27499745, 247249762 Qualifiers: Qualified Codes: N30.00 - Acute cystitis without hematuria (6) HCAP (healthcare-associated pneumonia) ICD Codes: J18.9 - Pneumonia, unspecified organism SNOMED: 776265658, 702166435 Status: stable Assessment/Plan: cont iv abx dc ivf lasix daily resp rx/o2 swallow eval noted follow up labs check iron panel and stool ob megace echo monitor cxr follow up cultures replace lytes Subjective ROS Limited/Unobtainable: No Constitutional: Reports: malaise, weakness HEENT: Reports: no symptoms Cardiovascular: Reports: no symptoms Respiratory: Reports: cough Gastrointestinal/Abdominal: Reports: poor appetite, poor fluid intake Genitourinary: Reports: no symptoms Neurologic/Psychiatric: Reports: pre-existing deficit Endocrine: Reports: no symptoms Hematologic/Lymphatic: Reports: no symptoms Allergies: Coded Allergies: SIMVASTATIN (Verified Allergy, Unknown, 05/26/19) All Systems: reviewed and negative except above Subjective no complaints. +constipation. poor po intake. on iv abx. ct with infiltrates vs pulmonary edema. Objective Last 24 Hour Vital Signs Date Time Temp Pulse Resp B/P (MAP) Pulse Ox O2 Delivery O2 Flow Rate FiO2 06/03/19 16:00 97.0 83 19 117/61 (79) 97 06/03/19 12:00 97.3 69 20 110/63 (79) 95 06/03/19 09:00 Nasal Cannula 3.0 06/03/19 08:00 97.0 66 19 91/60 (70) 97 06/03/19 04:00 98.4 68 20 113/57 (75) 94 06/03/19 02:23 94 Nasal Cannula 3.0 32 06/03/19 00:00 98.0 81 20 100/58 (72) 93 06/02/19 21:00 Nasal Cannula 3.0 06/02/19 20:00 97.6 80 18 103/59 (74) 93 Intake and Output 06/02/19 06/03/19 19:00 07:00 Intake Total 1985.000 ml 607.5 ml Output Total 1400 ml 300 ml Balance 585.000 ml 307.5 ml Intake Oral 500 ml 180 ml IV Total 1485.000 ml 427.5 ml Output Urine Total 1400 ml 300 ml # Voids 1 # Bowel Movements 2 1 Laboratory Tests 06/03/19 05:40: Sodium Level 142, Potassium Level 3.4L, Chloride Level 107, Carbon Dioxide Level 26, Anion Gap 9, Blood Urea Nitrogen 18, Creatinine 1.4H, Estimat Glomerular Filtration Rate , Glucose Level 117H, Calcium Level 8.4L, Magnesium Level 1.7L, Total Bilirubin 0.6, Aspartate Amino Transf (AST/SGOT) 17, Alanine Aminotransferase (ALT/SGPT) 14, Alkaline Phosphatase 79, Pro-B-Type Natriuretic Peptide 1199H, Total Protein 6.3L, Albumin 1.5L, Globulin 4.8, Albumin/Globulin Ratio 0.3L 06/03/19 14:50: Vancomycin Level Trough 20.8H Height (Feet): 5 Height (Inches): 6.00 Weight (Pounds): 138 Objective General Appearance: WD/WN, alert, confused Neck: supple Cardiovascular: regular rhythm Respiratory/Chest: rhonchi - bilaterally Abdomen: normal bowel sounds, non tender, soft, no organomegaly Edema: no edema noted Arm (L), no edema noted Arm (R), no edema noted Leg (L), no edema noted Leg (R), no edema noted Pedal (L), no edema noted Pedal (R), no edema noted 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
[2019-06-03] MEDS ORDERED: Sodium Chloride for KCL Premix X 3hrs IV SCH (20:00)
[2019-06-03] MEDS: Vancomycin 500mg/D5W 110ml IVPB SCH ×2 (21:24)
[2019-06-03] MEDS ORDERED: NS 250 ML IV ONE (23:00)
[2019-06-04] VITALS: BP 104/55
[2019-06-04 04:00] VITALS: BP 110/59
--- NOTE | 2019-06-04 05:30 | Consultation ---
DATE OF CONSULTATION: 06/02/2019 CARDIOLOGY CONSULTATION CONSULTING PHYSICIAN: Hunter Lion M.D. REQUESTING PHYSICIAN: Andrei Gunter M.D. REASON FOR CONSULTATION: Congestive heart failure with pleural effusions. HISTORY OF PRESENT ILLNESS: This is an 88-year-old male, who resides at a custodial facility and was admitted to the hospital approximately a week ago with shortness of breath, congestion, and lethargy. He was also febrile and tachypneic with hypoxia noted. He was seen in the emergency room and was noted to have bilateral pulmonary infiltrates. He was started on antimicrobials and respiratory hygiene since admission. He was treated with hypotonic IV fluids for hypernatremia, IV antimicrobials for sepsis and healthcare-acquired pneumonia and had a swallow evaluation ultimately performed. His condition improved, however over the past days, he has had worsening pleural effusions and signs of pulmonary venous congestion. I have been asked to assist with further cardiovascular care. PAST MEDICAL HISTORY: Hyperlipidemia, schizophrenia, gastroesophageal reflux disease, parkinsonism with dementia, hypertension with hypertensive heart disease, diastolic dysfunction with history of congestive heart failure. ALLERGIES: None. MEDICATIONS: Prior to admission, reviewed and reconciled. Current MAR reviewed and reconciled. SOCIAL HISTORY: Nonsmoker with no history of alcohol or substance abuse. FAMILY HISTORY: None known. REVIEW OF SYSTEMS: Cannot be obtained reliably from the patient. However, prior records and current hospital records have been reviewed extensively with pertinent details outlined above. PHYSICAL EXAMINATION: VITAL SIGNS: Blood pressure range from 89/53 to 103/59, heart rate 79 to 82, respiratory rate 16 to 18, the patient is afebrile. Oxygen saturation on 3 liters is 93% to 98%. NECK: Jugular venous pressure is slightly elevated. LUNGS: Diminished breath sounds with basilar rales. CARDIAC: Regular rhythm and rate. Normal S1, S2 with a 1/6 systolic murmur at the apex. ABDOMEN: Soft and nontender. EXTREMITIES: Revealed trace dependent edema. DIAGNOSTIC DATA: CAT scan of the chest reveals diffuse airspace disease, possible pulmonary edema, COPD, moderate pleural effusions bilaterally, arterial atherosclerotic disease. IMPRESSION: 1. Acute diastolic congestive heart failure. 2. Pleural effusions. 3. Healthcare-acquired pneumonia, improving. 4. Aspiration. 5. Cerebrovascular disease. 6. Dementia. 7. Hypoxia, resolved. 8. Dehydration and hypernatremia. 9. Severe protein-calorie malnutrition with third spacing. 10. Peripheral vascular disease with generalized atherosclerosis. PLAN: 1. Agree with diuresis. 2. Discontinue IV fluids. 3. Nutritional support with protein supplements. 4. Antimicrobials. 5. Respiratory hygiene. 6. DVT prophylaxis. 7. Long-term anti-platelet and anti-lipid therapy. Hunter Lion M.D. DR: TERESA JOB#: [id number] CC:
[2019-06-04] MEDS: Piperacillin/Tazobactam 3.375 GM in NS 110 ML IVPB SCH ×3 (05:36→22:56)
--- NOTE | 2019-06-04 05:40 | General Progress Note ---
Assessment/Plan Problem List: (1) ROSA (acute kidney injury) ICD Codes: N17.9 - Acute kidney failure, unspecified SNOMED: 14655551, 3768287 (2) Dehydration ICD Codes: E86.0 - Dehydration SNOMED: 77352993, 1467085 (3) Respiratory failure with hypoxia ICD Codes: J96.91 - Respiratory failure, unspecified with hypoxia SNOMED: 25408904444284990 Qualifiers: Qualified Codes: J96.01 - Acute respiratory failure with hypoxia (4) Sepsis ICD Codes: A41.9 - Sepsis, unspecified organism SNOMED: 47331044, 240099826 Qualifiers: Qualified Codes: A41.9 - Sepsis, unspecified organism; R65.20 - Severe sepsis without septic shock; J96.01 - Acute respiratory failure with hypoxia (5) UTI (urinary tract infection) ICD Codes: N39.0 - Urinary tract infection, site not specified SNOMED: 79079942, 399275563 Qualifiers: Qualified Codes: N30.00 - Acute cystitis without hematuria (6) HCAP (healthcare-associated pneumonia) ICD Codes: J18.9 - Pneumonia, unspecified organism SNOMED: 222016970, 406753823 Status: stable Assessment/Plan: cont iv abx dc ivf lasix daily as bp tolerates added midodrine resp rx/o2 swallow eval noted follow up labs megace echo monitor cxr follow up cultures replace lytes as needed bowel regime Subjective ROS Limited/Unobtainable: No Constitutional: Reports: malaise, weakness HEENT: Reports: no symptoms Cardiovascular: Reports: no symptoms Respiratory: Reports: cough Gastrointestinal/Abdominal: Reports: constipated Genitourinary: Reports: no symptoms Neurologic/Psychiatric: Reports: anxiety, depressed, emotional problems Endocrine: Reports: no symptoms Hematologic/Lymphatic: Reports: no symptoms Allergies: Coded Allergies: SIMVASTATIN (Verified Allergy, Unknown, 05/26/19) All Systems: reviewed and negative except above Subjective hypotensive last night. better after ivf bolus. constipated. on nasal cannula. Objective Last 24 Hour Vital Signs Date Time Temp Pulse Resp B/P (MAP) Pulse Ox O2 Delivery O2 Flow Rate FiO2 06/04/19 04:00 97.7 90 22 110/59 (76) 92 06/04/19 00:00 97.5 83 20 104/55 (71) 94 06/03/19 21:00 Nasal Cannula 3.0 06/03/19 20:40 93/51 (65) 06/03/19 20:25 95 Nasal Cannula 3.0 32 06/03/19 20:20 83/43 (56) 06/03/19 20:10 78/43 (55) 06/03/19 20:00 97.2 99 20 85/58 (67) 93 06/03/19 16:00 97.0 83 19 117/61 (79) 97 06/03/19 12:00 97.3 69 20 110/63 (79) 95 06/03/19 09:00 Nasal Cannula 3.0 06/03/19 08:00 97.0 66 19 91/60 (70) 97 Intake and Output 06/03/19 06/04/19 19:00 07:00 Intake Total 1925.0 ml 1297.5 ml Balance 1925.0 ml 1297.5 ml Intake Oral 960 ml IV Total 965.0 ml 1297.5 ml Laboratory Tests 06/03/19 05:40: Sodium Level 142, Potassium Level 3.4L, Chloride Level 107, Carbon Dioxide Level 26, Anion Gap 9, Blood Urea Nitrogen 18, Creatinine 1.4H, Estimat Glomerular Filtration Rate , Glucose Level 117H, Calcium Level 8.4L, Magnesium Level 1.7L, Total Bilirubin 0.6, Aspartate Amino Transf (AST/SGOT) 17, Alanine Aminotransferase (ALT/SGPT) 14, Alkaline Phosphatase 79, Pro-B-Type Natriuretic Peptide 1199H, Total Protein 6.3L, Albumin 1.5L, Globulin 4.8, Albumin/Globulin Ratio 0.3L 06/03/19 14:50: Vancomycin Level Trough 20.8H Height (Feet): 5 Height (Inches): 6.00 Weight (Pounds): 138 Objective General Appearance: WD/WN, alert, confused Neck: supple Cardiovascular: regular rhythm Respiratory/Chest: rhonchi - bilaterally Abdomen: normal bowel sounds, non tender, soft, no organomegaly Edema: no edema noted Arm (L), no edema noted Arm (R), no edema noted Leg (L), no edema noted Leg (R), no edema noted Pedal (L), no edema noted Pedal (R), no edema noted 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
[2019-06-04] MEDS ORDERED: Fleet's Enema 133ml RECTAL PRN (05:45)
[2019-06-04] MEDS ORDERED: Milk of Magnesia 30ml Ud ORAL PRN (05:45)
--- NOTE | 2019-06-04 06:00 | Progress Note ---
DATE: 06/03/2019 CARDIOLOGY PROGRESS NOTE SUBJECTIVE: Still with congestion and some shortness of breath. Diuresis initiated yesterday. IV fluids discontinued. PHYSICAL EXAMINATION: VITAL SIGNS: Blood pressure 93/51, heart rate 99, respiratory rate 18, afebrile, oxygen saturation on 3 liters 95%. LUNGS: Diminished breath sounds. Scattered rales. CARDIAC: Regular rhythm and rate. Normal S1, S2. A 1/6 systolic apical murmur. ABDOMEN: Soft. EXTREMITIES: Trace dependent edema. LABORATORY DATA: Sodium 142, potassium 3.4, bicarb 26, BUN 18, creatinine 1.4. Pro natriuretic peptide and albumin 1.5. IMPRESSION: 1. Acute diastolic congestive heart failure. 2. Pleural effusions, recovering. 3. Aspiration pneumonia. 4. Severe protein-calorie malnutrition with third spacing. 5. Low range blood pressure. 6. Hypoxia. 7. Hypokalemia. PLAN: 1. Diuresis efforts with caution in view of low range blood pressure. 2. Antimicrobials and respiratory hygiene. 3. DVT prophylaxis. 4. Protein supplementation. 5. Potassium repletion. 6. Check magnesium. 7. Trend natriuretic peptide assay. 8. Consider midodrine for persistent hypotension. 9. Taper oxygen as able. Hunter Lion M.D. DR: TERESA JOB#: [id number] CC:
[2019-06-04] MEDS: Midodrine 10mg tab ORAL SCH ×3 (06:06→22:28)
[2019-06-04 07:12] LABS: BASOPHILS % (AUTO) 0.4 % (0.0-2.0); EOSINOPHILS % (AUTO) 2.4 % (0.0-3.0); HEMATOCRIT 29.2 % (42.0-52.0); HEMOGLOBIN 9.8 G/DL (14.2-18.0); LYMPHOCYTES % (AUTO) 12.5 % (20.0-45.0); MEAN CORPUSCULAR VOLUME 85 FL (80-99); MONOCYTES % (AUTO) 4.9 % (1.0-10.0); NEUTROPHILS % (AUTO) 79.8 % (45.0-75.0); PLATELET COUNT 400 K/UL (150-450); RED BLOOD COUNT 3.44 M/UL (4.70-6.10); RED CELL DISTRIBUTION WIDTH 12.9 % (11.6-14.8); WHITE BLOOD COUNT 10.8 K/UL (4.8-10.8)
[2019-06-04 07:46] LABS: ALANINE AMINOTRANSFERASE 16 U/L (12-78); ALBUMIN 1.7 G/DL (3.4-5.0); ALBUMIN/GLOBULIN RATIO 0.3 (1.0-2.7); ALKALINE PHOSPHATASE 80 U/L (46-116); ANION GAP 9 mmol/L (5-15); ASPARTATE AMINO TRANSFERASE 15 U/L (15-37); BILIRUBIN,TOTAL 0.5 MG/DL (0.2-1.0); BLOOD UREA NITROGEN 17 mg/dL (7-18); CALCIUM 8.8 MG/DL (8.5-10.1); CARBON DIOXIDE 26 MMOL/L (21-32); CHLORIDE 108 MMOL/L (98-107); CREATININE 1.4 MG/DL (0.55-1.30); POTASSIUM 3.8 MMOL/L (3.5-5.1); SODIUM 143 MMOL/L (136-145)
[2019-06-04 08:00] VITALS: BP 101/46
[2019-06-04] MEDS: Megace 400mg/10ml Susp ORAL SCH ×2 (08:25→17:29)
[2019-06-04] MEDS: Docusate 250mg cap ORAL SCH ×2 (08:26→17:29)
[2019-06-04] MEDS: Pantoprazole Inj IVP SCH (08:26)
[2019-06-04] MEDS: Docusate 100mg cap ORAL SCH ×2 (08:26→17:29)
[2019-06-04] MEDS: Heparin 5000 units/ml inj SUBQ SCH ×2 (08:27→22:29)
[2019-06-04] MEDS: Vancomycin 500mg/D5W 110ml IVPB SCH ×4 (10:13→22:28)
[2019-06-04 12:00] VITALS: BP 109/80
[2019-06-04 16:00] VITALS: BP 103/89
--- NOTE | 2019-06-04 18:51 | Pulmonology Progress Note ---
Assessment/Plan Assessment/Plan Pulmonary Progress Note Assessment/Plan IMPRESSION: 1. Pulmonary infiltrates, with bilateral effusions, basal atelectasis on CT chest with airway secretions 2. Hypernatremia. 3. Acute renal failure. 4. Toxic metabolic encephalopathy. 5. Chronic encephalopathy. 6. Parkinsonism. 7. Dementia. 8. Severe protein-calorie malnutrition. PLAN aspiration precautions respiratory care Q4, add CPT oxygen as needed monitor imaging - still appears to be pulmonary edema with effusions monitor BNP and optimize close follow up DVT prophylaxis aspiration precautions as is antibiotics reviewed impression, plan, and exam edited and reviewed in detail care discussed with RN Subjective Allergies: Coded Allergies: SIMVASTATIN (Verified Allergy, Unknown, 05/26/19) Subjective reviewed care on oxygen as is CT noted noted congestion Objective Vital Signs Noted Objective GENERAL: The patient is an ill-appearing male, currently on oxygen. HEENT: Negative. Extraocular movements are difficult to assess. Oropharynx with poor overall care. Dry mucous membranes. NECK: Supple. LUNGS: scattered rhonchi and crackles at both bases. CARDIAC: S1 and S2. Slightly tachycardic. Soft systolic murmur. ABDOMEN: Soft. no distention EXTREMITIES: No cyanosis or clubbing. NEUROLOGIC: The patient is withdrawn. Reduced range of motion. Laboratory Tests 06/03/19 05:40: Sodium Level 142, Potassium Level 3.4L, Chloride Level 107, Carbon Dioxide Level 26, Anion Gap 9, Blood Urea Nitrogen 18, Creatinine 1.4H, Estimat Glomerular Filtration Rate , Glucose Level 117H, Calcium Level 8.4L, Magnesium Level 1.7L, Total Bilirubin 0.6, Aspartate Amino Transf (AST/SGOT) 17, Alanine Aminotransferase (ALT/SGPT) 14, Alkaline Phosphatase 79, Total Protein 6.3L, Albumin 1.5L, Globulin 4.8, Albumin/Globulin Ratio 0.3L Current Medications Medications (Trade) Dose Ordered Sig/Monster Route PRN Reason Start Time Stop Time Status Last Admin Dose Admin Dextrose 1,000 ml @ 100 mls/hr Q10H IV 06/02/19 05:30 07/02/19 05:29 06/03/19 02:12 Docusate Sodium (Colace) 100 mg TWICE A DAY ORAL 06/02/19 09:00 07/02/19 08:59 06/02/19 17:22 Heparin Sodium (Porcine) (Heparin 5000 units/ml) 5,000 units EVERY 12 HOURS SUBQ 05/27/19 09:00 06/26/19 08:59 06/02/19 21:36 Megestrol Acetate (Megace) 400 mg TWICE A DAY ORAL 06/02/19 09:00 07/02/19 08:59 06/02/19 17:22 Mirtazapine (Remeron) 7.5 mg BEDTIME ORAL 06/02/19 21:00 07/02/19 20:59 06/02/19 21:35 Pantoprazole (Protonix) 40 mg DAILY IVP 05/27/19 09:00 06/26/19 08:59 06/02/19 10:13 Piperacillin Sod/ Tazobactam Sod 3.375 gm/Sodium Chloride 110 ml @ 27.5 mls/hr EVERY 8 HOURS IVPB 05/27/19 06:00 06/05/19 05:59 06/03/19 06:39 Polyethylene Glycol (Miralax) 17 gm DAILY PRN ORAL Constipation 06/02/19 05:30 07/02/19 05:29 Vancomycin HCl (Vanco rx to dose) 1 ea DAILY PRN MISC Per rx protocol 05/27/19 02:00 06/26/19 01:59 Vancomycin HCl 750 mg/Sodium Chloride 275 ml @ 183.333 mls/hr Q12H IVPB 05/31/19 16:00 06/05/19 15:59 06/03/19 04:44 Subjective ROS Limited/Unobtainable: No Allergies: Coded Allergies: SIMVASTATIN (Verified Allergy, Unknown, 05/26/19) Objective Last 24 Hour Vital Signs Date Time Temp Pulse Resp B/P (MAP) Pulse Ox O2 Delivery O2 Flow Rate FiO2 06/04/19 16:00 97.9 76 19 103/89 (94) 99 06/04/19 12:00 97.9 88 18 109/80 (90) 97 06/04/19 09:00 Nasal Cannula 3.0 06/04/19 08:00 97.8 74 19 101/46 (64) 96 06/04/19 04:00 97.7 90 22 110/59 (76) 92 06/04/19 00:00 97.5 83 20 104/55 (71) 94 06/03/19 21:00 Nasal Cannula 3.0 06/03/19 20:40 93/51 (65) 06/03/19 20:25 95 Nasal Cannula 3.0 32 06/03/19 20:20 83/43 (56) 06/03/19 20:10 78/43 (55) 06/03/19 20:00 97.2 99 20 85/58 (67) 93 Intake and Output 06/03/19 06/04/19 19:00 07:00 Intake Total 1925.0 ml 1325.0 ml Balance 1925.0 ml 1325.0 ml Intake Oral 960 ml IV Total 965.0 ml 1325.0 ml Laboratory Tests 06/04/19 06:25: White Blood Count 10.8, Red Blood Count 3.44L, Hemoglobin 9.8L, Hematocrit 29.2L , Mean Corpuscular Volume 85, Mean Corpuscular Hemoglobin 28.5, Mean Corpuscular Hemoglobin Concent 33.5, Red Cell Distribution Width 12.9, Platelet Count 400, Mean Platelet Volume 5.7L, Neutrophils (%) (Auto) 79.8H, Lymphocytes (%) (Auto) 12.5L, Monocytes (%) (Auto) 4.9, Eosinophils (%) (Auto) 2.4, Basophils (%) (Auto) 0.4, Sodium Level 143, Potassium Level 3.8, Chloride Level 108H, Carbon Dioxide Level 26, Anion Gap 9, Blood Urea Nitrogen 17, Creatinine 1.4H, Estimat Glomerular Filtration Rate 48.1, Glucose Level 94, Calcium Level 8.8, Magnesium Level 2.3, Total Bilirubin 0.5, Aspartate Amino Transf (AST/SGOT ) 15, Alanine Aminotransferase (ALT/SGPT) 16, Alkaline Phosphatase 80, Pro-B- Type Natriuretic Peptide 925H, Total Protein 6.8, Albumin 1.7L, Globulin 5.1, Albumin/Globulin Ratio 0.3L Current Medications Medications (Trade) Dose Ordered Sig/Monster Route PRN Reason Start Time Stop Time Status Last Admin Dose Admin Docusate Sodium (Colace) 100 mg TWICE A DAY ORAL 06/02/19 09:00 07/02/19 08:59 06/04/19 17:29 Docusate Sodium (Colace) 250 mg BID ORAL 06/04/19 09:00 07/04/19 08:59 06/04/19 17:29 Furosemide (Lasix) 20 mg DAILY IV 06/03/19 19:17 07/03/19 19:16 06/04/19 08:26 Heparin Sodium (Porcine) (Heparin 5000 units/ml) 5,000 units EVERY 12 HOURS SUBQ 05/27/19 09:00 06/26/19 08:59 06/04/19 08:27 Magnesium Hydroxide (Mom) 30 ml DAILYPRN PRN ORAL Constipation 06/04/19 05:45 07/04/19 05:44 Megestrol Acetate (Megace) 400 mg TWICE A DAY ORAL 06/02/19 09:00 07/02/19 08:59 06/04/19 17:29 Midodrine (Pro-Amatine) 10 mg TID@0600,1400,2200 ORAL 06/04/19 06:00 07/04/19 05:59 06/04/19 14:44 Mirtazapine (Remeron) 7.5 mg BEDTIME ORAL 06/02/19 21:00 07/02/19 20:59 06/03/19 21:40 Pantoprazole (Protonix) 40 mg DAILY IVP 05/27/19 09:00 06/26/19 08:59 06/04/19 08:26 Piperacillin Sod/ Tazobactam Sod 3.375 gm/Sodium Chloride 110 ml @ 27.5 mls/hr EVERY 8 HOURS IVPB 05/27/19 06:00 06/05/19 05:59 06/04/19 14:46 Polyethylene Glycol (Miralax) 17 gm DAILY PRN ORAL Constipation 06/02/19 05:30 07/02/19 05:29 Sodium Phosphate (Fleet's Sodium Phosl Enema) 133 ml DAILYPRN PRN RECTAL Constipation 06/04/19 05:45 07/04/19 05:44 Vancomycin HCl (Vanco rx to dose) 1 ea DAILY PRN MISC Per rx protocol 05/27/19 02:00 06/26/19 01:59 Vancomycin HCl 500 mg/Dextrose 110 ml @ 110 mls/hr Q12HR IVPB 06/03/19 21:00 06/08/19 20:59 06/04/19 10:13 Hunter Bocanegra MD Jun 04, 2019 18:51
[2019-06-04 20:00] VITALS: BP 103/59
[2019-06-05] VITALS: BP 110/58
--- NOTE | 2019-06-05 03:15 | Progress Note ---
DATE: 06/04/2019 CARDIOLOGY PROGRESS NOTE SUBJECTIVE: The patient was hypotensive last night. He was given IV fluid bolus and improved. He remains on nasal cannula. OBJECTIVE: VITAL SIGNS: Blood pressure 104/55, heart rate 83, respiratory rate 20. LUNGS: Clear. CARDIAC: Regular. Normal S1, S2 with a fourth heart sound. ABDOMEN: Soft. EXTREMITIES: No edema. IMPRESSION: 1. Healthcare-acquired aspiration pneumonia. 2. Acute diastolic congestive heart failure. 3. Hypernatremia. 4. Acute renal failure. 5. Encephalopathy. 6. Pleural effusion. 7. Low baseline blood pressure range. PLAN: 1. Agree with midodrine therapy for now. 2. Continue antimicrobials. 3. Respiratory hygiene. 4. Cautious diuresis. 5. Monitor electrolytes. Hunter Lion M.D. DR: Gonzalo JOB#: [id number] CC: SIDRA
[2019-06-05 04:00] VITALS: BP 125/62
[2019-06-05] MEDS: Midodrine 10mg tab ORAL SCH ×3 (05:23→22:02)
--- NOTE | 2019-06-05 07:58 | General Progress Note ---
Assessment/Plan Problem List: (1) ROSA (acute kidney injury) ICD Codes: N17.9 - Acute kidney failure, unspecified SNOMED: 29117930, 7677734 (2) Dehydration ICD Codes: E86.0 - Dehydration SNOMED: 46879666, 1809361 (3) Respiratory failure with hypoxia ICD Codes: J96.91 - Respiratory failure, unspecified with hypoxia SNOMED: 25127281582906873 Qualifiers: Qualified Codes: J96.01 - Acute respiratory failure with hypoxia (4) Sepsis ICD Codes: A41.9 - Sepsis, unspecified organism SNOMED: 68305334, 469677949 Qualifiers: Qualified Codes: A41.9 - Sepsis, unspecified organism; R65.20 - Severe sepsis without septic shock; J96.01 - Acute respiratory failure with hypoxia (5) UTI (urinary tract infection) ICD Codes: N39.0 - Urinary tract infection, site not specified SNOMED: 31701983, 876515329 Qualifiers: Qualified Codes: N30.00 - Acute cystitis without hematuria (6) HCAP (healthcare-associated pneumonia) ICD Codes: J18.9 - Pneumonia, unspecified organism SNOMED: 868691343, 168070534 Status: stable Assessment/Plan: cont iv abx check cxr and abg lasix daily as bp tolerates midodrine for low bp resp rx/o2- try to wean swallow eval noted follow up labs megace follow up cultures replace lytes as needed bowel regime dc planning if pulm status better Subjective ROS Limited/Unobtainable: No Constitutional: Reports: malaise, weakness HEENT: Reports: no symptoms Cardiovascular: Reports: no symptoms Respiratory: Reports: cough, shortness of breath Gastrointestinal/Abdominal: Reports: difficulty swallowing Genitourinary: Reports: no symptoms Neurologic/Psychiatric: Reports: anxiety, depressed, emotional problems Endocrine: Reports: no symptoms Hematologic/Lymphatic: Reports: no symptoms Allergies: Coded Allergies: SIMVASTATIN (Verified Allergy, Unknown, 05/26/19) All Systems: reviewed and negative except above Subjective worsening hypoxemia. now on 5l NC. no new complaints. alert. no chest pain . Objective Last 24 Hour Vital Signs Date Time Temp Pulse Resp B/P (MAP) Pulse Ox O2 Delivery O2 Flow Rate FiO2 06/05/19 04:00 98.6 72 17 125/62 (83) 96 06/05/19 00:00 98.0 78 19 110/58 (75) 96 06/04/19 21:00 Nasal Cannula 5.0 06/04/19 20:00 98.9 74 18 103/59 (74) 96 06/04/19 19:49 96 Nasal Cannula 3.0 32 06/04/19 16:00 97.9 76 19 103/89 (94) 99 06/04/19 12:00 97.9 88 18 109/80 (90) 97 06/04/19 09:00 Nasal Cannula 3.0 06/04/19 08:00 97.8 74 19 101/46 (64) 96 Intake and Output 06/04/19 06/05/19 19:00 07:00 Intake Total 782.5 ml 220.0 ml Output Total 1800 ml 300 ml Balance -1017.5 ml -80.0 ml Intake Oral 480 ml IV Total 302.5 ml 220.0 ml Output Urine Total 1800 ml 300 ml # Voids 1 Height (Feet): 5 Height (Inches): 6.00 Weight (Pounds): 141 Objective General Appearance: WD/WN, alert, confused Neck: supple Cardiovascular: regular rhythm Respiratory/Chest: rhonchi on the left Abdomen: normal bowel sounds, non tender, soft, no organomegaly Edema: no edema noted Arm (L), no edema noted Arm (R), no edema noted Leg (L), no edema noted Leg (R), no edema noted Pedal (L), no edema noted Pedal (R), no edema noted Generalized 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
[2019-06-05 08:00] VITALS: BP 116/64
[2019-06-05] MEDS: Docusate 250mg cap ORAL SCH ×2 (08:30→17:45)
[2019-06-05] MEDS: Pantoprazole Inj IVP SCH (08:30)
[2019-06-05] MEDS: Megace 400mg/10ml Susp ORAL SCH ×2 (08:30→17:45)
[2019-06-05] MEDS: Docusate 100mg cap ORAL SCH ×2 (08:30→17:45)
[2019-06-05] MEDS: Heparin 5000 units/ml inj SUBQ SCH ×2 (08:31→22:03)
[2019-06-05 09:52] LABS: ALANINE AMINOTRANSFERASE 13 U/L (12-78); ALBUMIN 1.7 G/DL (3.4-5.0); ALBUMIN/GLOBULIN RATIO 0.4 (1.0-2.7); ALKALINE PHOSPHATASE 77 U/L (46-116); ANION GAP 8 mmol/L (5-15); ASPARTATE AMINO TRANSFERASE 15 U/L (15-37); BILIRUBIN,TOTAL 0.5 MG/DL (0.2-1.0); BLOOD UREA NITROGEN 20 mg/dL (7-18); CALCIUM 8.5 MG/DL (8.5-10.1); CARBON DIOXIDE 27 MMOL/L (21-32); CHLORIDE 110 MMOL/L (98-107); CREATININE 1.5 MG/DL (0.55-1.30); SODIUM 145 MMOL/L (136-145)
--- NOTE | 2019-06-05 10:30 | Diagnostic Imaging Report ---
Indication: Cough, shortness of breath Technique: One view of the chest Comparison: 05/31/2019 Findings: There is slightly increased dense consolidation in the right midlung. Interstitial and airspace disease in the left lower lung appears slightly improved but persistent. There is slightly increased parenchymal disease in the left upper lung There is also diffuse background interstitial disease and hazy airspace disease which is unchanged. Bilateral pleural effusions are again noted Impression: Increasing right lung infiltrates and shifting left lung infiltrates, as described.
[2019-06-05 12:00] VITALS: BP 141/54
[2019-06-05] MEDS: Vancomycin 750mg/NS 275ml IVPB SCH ×2 (13:27)
[2019-06-05 16:00] VITALS: BP 121/79
--- NOTE | 2019-06-05 17:13 | Pulmonology Progress Note ---
Assessment/Plan Assessment/Plan IMPRESSION: 1. Pulmonary infiltrates, with bilateral effusions 2. Hypernatremia. 3. Acute renal failure. 4. Toxic metabolic encephalopathy. 5. Chronic encephalopathy. 6. Parkinsonism. 7. Dementia. 8. Severe protein-calorie malnutrition. PLAN elevate head respiratory care as is oxygen as needed monitor imaging - likely needs VATS biopsy monitor BNP and optimize close follow up DVT prophylaxis aspiration precautions as is antibiotics reviewed DNR impression, plan, and exam edited and reviewed in detail care discussed with RN Subjective Allergies: Coded Allergies: SIMVASTATIN (Verified Allergy, Unknown, 05/26/19) Subjective reviewed care on oxygen as is CXR repeat with ongoing infiltrates noted congestion Objective Last 24 Hour Vital Signs Date Time Temp Pulse Resp B/P (MAP) Pulse Ox O2 Delivery O2 Flow Rate FiO2 06/05/19 16:00 98.2 97 20 121/79 (93) 98 06/05/19 12:00 98.2 76 20 141/54 (83) 96 06/05/19 09:00 Nasal Cannula 5.0 06/05/19 08:00 98.1 62 20 116/64 (81) 96 06/05/19 04:00 98.6 72 17 125/62 (83) 96 06/05/19 00:00 98.0 78 19 110/58 (75) 96 06/04/19 21:00 Nasal Cannula 5.0 06/04/19 20:00 98.9 74 18 103/59 (74) 96 06/04/19 19:49 96 Nasal Cannula 3.0 32 Intake and Output 06/04/19 06/05/19 19:00 07:00 Intake Total 782.5 ml 220.0 ml Output Total 1800 ml 300 ml Balance -1017.5 ml -80.0 ml Intake Oral 480 ml IV Total 302.5 ml 220.0 ml Output Urine Total 1800 ml 300 ml # Voids 1 Objective GENERAL: The patient is an ill-appearing male, currently on oxygen. HEENT: Negative. Extraocular movements are difficult to assess. Oropharynx with poor overall care. Dry mucous membranes. NECK: Supple. LUNGS: scattered rhonchi and crackles at both bases. CARDIAC: S1 and S2. Slightly tachycardic. Soft systolic murmur. ABDOMEN: Soft. no distention EXTREMITIES: No cyanosis or clubbing. NEUROLOGIC: The patient is withdrawn. Reduced range of motion. Laboratory Tests 06/05/19 08:05: Sodium Level 145, Potassium Level 4.0, Chloride Level 110H, Carbon Dioxide Level 27, Anion Gap 8, Blood Urea Nitrogen 20H, Creatinine 1.5H, Estimat Glomerular Filtration Rate 44.4, Glucose Level 92, Calcium Level 8.5, Total Bilirubin 0.5, Aspartate Amino Transf (AST/SGOT) 15, Alanine Aminotransferase ( ALT/SGPT) 13, Alkaline Phosphatase 77, Total Protein 6.0L, Albumin 1.7L, Globulin 4.3, Albumin/Globulin Ratio 0.4L, Vancomycin Level Trough 20.6H 06/05/19 12:20: Arterial Blood pH 7.514H, Arterial Blood Partial Pressure CO2 30.0L, Arterial Blood Partial Pressure O2 56.5L, Arterial Blood HCO3 23.6, Arterial Blood Oxygen Saturation 90.7L, Arterial Blood Base Excess 1.2, Justin Test Positive Current Medications Medications (Trade) Dose Ordered Sig/Monster Route PRN Reason Start Time Stop Time Status Last Admin Dose Admin Docusate Sodium (Colace) 100 mg TWICE A DAY ORAL 06/02/19 09:00 07/02/19 08:59 06/05/19 08:30 Docusate Sodium (Colace) 250 mg BID ORAL 06/04/19 09:00 07/04/19 08:59 06/05/19 08:30 Furosemide (Lasix) 20 mg DAILY IV 06/03/19 19:17 07/03/19 19:16 06/05/19 08:30 Heparin Sodium (Porcine) (Heparin 5000 units/ml) 5,000 units EVERY 12 HOURS SUBQ 05/27/19 09:00 06/26/19 08:59 06/05/19 08:31 Magnesium Hydroxide (Mom) 30 ml DAILYPRN PRN ORAL Constipation 06/04/19 05:45 07/04/19 05:44 Megestrol Acetate (Megace) 400 mg TWICE A DAY ORAL 06/02/19 09:00 07/02/19 08:59 06/05/19 08:30 Midodrine (Pro-Amatine) 10 mg TID@0600,1400,2200 ORAL 06/04/19 06:00 07/04/19 05:59 06/05/19 13:25 Mirtazapine (Remeron) 7.5 mg BEDTIME ORAL 06/02/19 21:00 07/02/19 20:59 06/04/19 22:28 Pantoprazole (Protonix) 40 mg DAILY IVP 05/27/19 09:00 06/26/19 08:59 06/05/19 08:30 Piperacillin Sod/ Tazobactam Sod 3.375 gm/Sodium Chloride 110 ml @ 27.5 mls/hr EVERY 8 HOURS IVPB 06/05/19 22:00 06/12/19 21:59 Polyethylene Glycol (Miralax) 17 gm DAILY PRN ORAL Constipation 06/02/19 05:30 07/02/19 05:29 Sodium Phosphate (Fleet's Sodium Phosl Enema) 133 ml DAILYPRN PRN RECTAL Constipation 06/04/19 05:45 07/04/19 05:44 Vancomycin HCl (Vanco rx to dose) 1 ea DAILY PRN MISC Per rx protocol 05/27/19 02:00 06/26/19 01:59 Vancomycin HCl 750 mg/Sodium Chloride 275 ml @ 183.333 mls/hr Q24H IVPB 06/05/19 14:00 06/10/19 13:59 06/05/19 13:27 Pedrito Caban MD Jun 05, 2019 17:13
[2019-06-05 20:00] VITALS: BP 94/53
[2019-06-05] MEDS: Piperacillin/Tazobactam 3.375 GM in NS 110 ML IVPB SCH (22:02)
[2019-06-06] VITALS: BP 109/56
--- NOTE | 2019-06-06 00:45 | Progress Note ---
DATE: 06/05/2019 CARDIOLOGY PROGRESS NOTE SUBJECTIVE: Remains on nasal oxygen at 5 liters with hypoxia. OBJECTIVE: VITAL SIGNS: Blood pressure 125/62, pulse 72, respiratory rate 17, and afebrile. LUNGS: Bilateral breath sounds. Rhonchi. HEART: Regular rhythm and rate. Normal S1 and S2. ABDOMEN: Soft. EXTREMITIES: No edema. LABORATORY DATA: White count 10.8 and hemoglobin 9.8. On 06/04/2019, BUN 20 and creatinine 1.5. Today with potassium 4.0 and albumin 1.7. ABG, 7.51, 30, and 56. IMAGING DATA: Chest x-ray today revealed lung infiltrates bilaterally, right greater than left. IMPRESSION: 1. Bilateral infiltrates. 2. Acute on chronic diastolic congestive heart failure. 3. Hypoxia. 4. Severe protein-calorie malnutrition. 5. Rehydrated with corrected metabolic parameters. 6. Stable blood pressure parameters, on midodrine support. PLAN: 1. Taper off midodrine if blood pressure remains stable. 2. Continue antimicrobials respiratory hygiene. 3. DVT prophylaxis. 4. Diuresis with caution basis. 5. Follow up lab studies. Hunter Lion M.D. DR: CADE JOB#: [id number] CC:
[2019-06-06 04:00] VITALS: BP 116/60
[2019-06-06] MEDS: Piperacillin/Tazobactam 3.375 GM in NS 110 ML IVPB SCH ×3 (05:32→21:55)
[2019-06-06] MEDS: Midodrine 10mg tab ORAL SCH ×3 (05:32→21:55)
[2019-06-06 07:36] LABS: BASOPHILS % (AUTO) 0.7 % (0.0-2.0); EOSINOPHILS % (AUTO) 2.3 % (0.0-3.0); HEMATOCRIT 29.5 % (42.0-52.0); HEMOGLOBIN 9.8 G/DL (14.2-18.0); LYMPHOCYTES % (AUTO) 15.6 % (20.0-45.0); MEAN CORPUSCULAR VOLUME 85 FL (80-99); MONOCYTES % (AUTO) 5.6 % (1.0-10.0); NEUTROPHILS % (AUTO) 75.8 % (45.0-75.0); PLATELET COUNT 533 K/UL (150-450); RED BLOOD COUNT 3.45 M/UL (4.70-6.10); RED CELL DISTRIBUTION WIDTH 13.4 % (11.6-14.8); WHITE BLOOD COUNT 8.5 K/UL (4.8-10.8)
[2019-06-06 08:00] VITALS: BP 107/63
[2019-06-06 08:15] LABS: ALANINE AMINOTRANSFERASE 14 U/L (12-78); ALBUMIN 1.8 G/DL (3.4-5.0); ALBUMIN/GLOBULIN RATIO 0.4 (1.0-2.7); ALKALINE PHOSPHATASE 77 U/L (46-116); ANION GAP 10 mmol/L (5-15); ASPARTATE AMINO TRANSFERASE 14 U/L (15-37); BILIRUBIN,TOTAL 0.4 MG/DL (0.2-1.0); BLOOD UREA NITROGEN 22 mg/dL (7-18); CALCIUM 8.9 MG/DL (8.5-10.1); CARBON DIOXIDE 27 MMOL/L (21-32); CHLORIDE 110 MMOL/L (98-107); CREATININE 1.6 MG/DL (0.55-1.30); POTASSIUM 3.6 MMOL/L (3.5-5.1); SODIUM 146 MMOL/L (136-145)
[2019-06-06] MEDS: Docusate 250mg cap ORAL SCH ×2 (08:56→18:00)
[2019-06-06] MEDS: Pantoprazole Inj IVP SCH (08:57)
[2019-06-06] MEDS: Megace 400mg/10ml Susp ORAL SCH ×2 (08:57→18:00)
[2019-06-06] MEDS: Docusate 100mg cap ORAL SCH ×2 (08:57→18:00)
[2019-06-06] MEDS: Heparin 5000 units/ml inj SUBQ SCH ×2 (08:58→21:56)
--- NOTE | 2019-06-06 08:59 | Pulmonology Progress Note ---
Assessment/Plan Assessment/Plan IMPRESSION: 1. Pulmonary infiltrates, with bilateral effusions 2. Hypernatremia. 3. Acute renal failure. 4. Toxic metabolic encephalopathy. 5. Chronic encephalopathy. 6. Parkinsonism. 7. Dementia. 8. Severe protein-calorie malnutrition. PLAN elevate head respiratory care as is oxygen as needed monitor imaging - likely needs VATS biopsy if no further improvement clinically better; repeat cxr in am and advise DVT prophylaxis aspiration precautions as is antibiotics reviewed DNR impression, plan, and exam edited and reviewed in detail care discussed with RN Subjective ROS Limited/Unobtainable: Yes Allergies: Coded Allergies: SIMVASTATIN (Verified Allergy, Unknown, 05/26/19) Subjective reviewed care on oxygen as is CXR with ongoing infiltrates but slightly better noted congestion Objective Last 24 Hour Vital Signs Date Time Temp Pulse Resp B/P (MAP) Pulse Ox O2 Delivery O2 Flow Rate FiO2 06/06/19 04:00 98.1 77 18 116/60 (78) 94 06/06/19 00:00 98.3 78 20 109/56 (73) 95 06/05/19 21:00 Nasal Cannula 3.0 06/05/19 20:00 99.0 90 20 94/53 (67) 96 06/05/19 19:51 95 Nasal Cannula 3.0 32 06/05/19 16:00 98.2 97 20 121/79 (93) 98 06/05/19 12:00 98.2 76 20 141/54 (83) 96 06/05/19 09:00 Nasal Cannula 5.0 Intake and Output 06/05/19 06/06/19 19:00 07:00 Intake Total 1166.666 ml 137.5 ml Output Total 1200 ml 350 ml Balance -33.334 ml -212.5 ml IV Total 366.666 ml 137.5 ml Other 800 ml Output Urine Total 1200 ml 350 ml Objective GENERAL: The patient is an ill-appearing male, currently on oxygen. HEENT: Negative. Extraocular movements are difficult to assess. Oropharynx with poor overall care. Dry mucous membranes. NECK: Supple. LUNGS: some rhonchi and crackles at both bases. CARDIAC: S1 and S2. Slightly tachycardic. Soft systolic murmur. ABDOMEN: Soft. no distention EXTREMITIES: No cyanosis or clubbing. NEUROLOGIC: The patient is confused. Reduced range of motion. reviewed and edited Laboratory Tests 06/05/19 12:20: Arterial Blood pH 7.514H, Arterial Blood Partial Pressure CO2 30.0L, Arterial Blood Partial Pressure O2 56.5L, Arterial Blood HCO3 23.6, Arterial Blood Oxygen Saturation 90.7L, Arterial Blood Base Excess 1.2, Justin Test Positive 06/06/19 06:15: White Blood Count 8.5, Red Blood Count 3.45L, Hemoglobin 9.8L, Hematocrit 29.5L , Mean Corpuscular Volume 85, Mean Corpuscular Hemoglobin 28.5, Mean Corpuscular Hemoglobin Concent 33.3, Red Cell Distribution Width 13.4, Platelet Count 533H, Mean Platelet Volume 5.1L, Neutrophils (%) (Auto) 75.8H, Lymphocytes (%) (Auto) 15.6L, Monocytes (%) (Auto) 5.6, Eosinophils (%) (Auto) 2.3, Basophils (%) (Auto) 0.7, Sodium Level 146H, Potassium Level 3.6, Chloride Level 110H, Carbon Dioxide Level 27, Anion Gap 10, Blood Urea Nitrogen 22H, Creatinine 1.6H, Estimat Glomerular Filtration Rate 41.2, Glucose Level 100, Calcium Level 8.9, Magnesium Level 2.2, Total Bilirubin 0.4, Aspartate Amino Transf (AST/SGOT) 14L, Alanine Aminotransferase (ALT/SGPT) 14, Alkaline Phosphatase 77, Pro-B-Type Natriuretic Peptide 843H, Total Protein 6.9, Albumin 1.8L, Globulin 5.1, Albumin/Globulin Ratio 0.4L Current Medications Medications (Trade) Dose Ordered Sig/Monster Route PRN Reason Start Time Stop Time Status Last Admin Dose Admin Docusate Sodium (Colace) 100 mg TWICE A DAY ORAL 06/02/19 09:00 07/02/19 08:59 06/05/19 17:45 Docusate Sodium (Colace) 250 mg BID ORAL 06/04/19 09:00 07/04/19 08:59 06/05/19 17:45 Furosemide (Lasix) 20 mg DAILY IV 06/03/19 19:17 07/03/19 19:16 06/05/19 08:30 Heparin Sodium (Porcine) (Heparin 5000 units/ml) 5,000 units EVERY 12 HOURS SUBQ 05/27/19 09:00 06/26/19 08:59 06/05/19 22:03 Magnesium Hydroxide (Mom) 30 ml DAILYPRN PRN ORAL Constipation 06/04/19 05:45 07/04/19 05:44 Megestrol Acetate (Megace) 400 mg TWICE A DAY ORAL 06/02/19 09:00 07/02/19 08:59 06/05/19 17:45 Midodrine (Pro-Amatine) 10 mg TID@0600,1400,2200 ORAL 06/04/19 06:00 07/04/19 05:59 06/06/19 05:32 Mirtazapine (Remeron) 7.5 mg BEDTIME ORAL 06/02/19 21:00 07/02/19 20:59 06/05/19 22:02 Pantoprazole (Protonix) 40 mg DAILY IVP 05/27/19 09:00 06/26/19 08:59 06/05/19 08:30 Piperacillin Sod/ Tazobactam Sod 3.375 gm/Sodium Chloride 110 ml @ 27.5 mls/hr EVERY 8 HOURS IVPB 06/05/19 22:00 06/12/19 21:59 06/06/19 05:32 Polyethylene Glycol (Miralax) 17 gm DAILY PRN ORAL Constipation 06/02/19 05:30 07/02/19 05:29 Sodium Phosphate (Fleet's Sodium Phosl Enema) 133 ml DAILYPRN PRN RECTAL Constipation 06/04/19 05:45 07/04/19 05:44 Vancomycin HCl (Vanco rx to dose) 1 ea DAILY PRN MISC Per rx protocol 05/27/19 02:00 06/26/19 01:59 Vancomycin HCl 750 mg/Sodium Chloride 275 ml @ 183.333 mls/hr Q24H IVPB 06/05/19 14:00 06/10/19 13:59 06/05/19 13:27 Pedrito Caban MD Jun 06, 2019 08:59
[2019-06-06 12:00] VITALS: BP 112/71
[2019-06-06] MEDS: Vancomycin 750mg/NS 275ml IVPB SCH ×2 (14:15)
--- NOTE | 2019-06-06 14:24 | General Progress Note ---
Assessment/Plan Problem List: (1) ROSA (acute kidney injury) ICD Codes: N17.9 - Acute kidney failure, unspecified SNOMED: 65578849, 6209414 (2) Dehydration ICD Codes: E86.0 - Dehydration SNOMED: 61328977, 7901981 (3) Respiratory failure with hypoxia ICD Codes: J96.91 - Respiratory failure, unspecified with hypoxia SNOMED: 10847375741278066 Qualifiers: Qualified Codes: J96.01 - Acute respiratory failure with hypoxia (4) Sepsis ICD Codes: A41.9 - Sepsis, unspecified organism SNOMED: 77737532, 958400513 Qualifiers: Qualified Codes: A41.9 - Sepsis, unspecified organism; R65.20 - Severe sepsis without septic shock; J96.01 - Acute respiratory failure with hypoxia (5) UTI (urinary tract infection) ICD Codes: N39.0 - Urinary tract infection, site not specified SNOMED: 05605648, 242193430 Qualifiers: Qualified Codes: N30.00 - Acute cystitis without hematuria (6) HCAP (healthcare-associated pneumonia) ICD Codes: J18.9 - Pneumonia, unspecified organism SNOMED: 883459872, 568434887 Status: stable Assessment/Plan: cont iv abx follow up cxr in am lasix daily as bp tolerates midodrine for low bp resp rx/o2- try to wean swallow eval noted follow up labs megace follow up cultures replace lytes as needed bowel regime dc planning if pulm status better Subjective ROS Limited/Unobtainable: No Constitutional: Reports: malaise, weakness HEENT: Reports: no symptoms Cardiovascular: Reports: no symptoms Respiratory: Reports: cough, shortness of breath Gastrointestinal/Abdominal: Reports: difficulty swallowing, poor fluid intake Genitourinary: Reports: no symptoms Neurologic/Psychiatric: Reports: pre-existing deficit Endocrine: Reports: no symptoms Hematologic/Lymphatic: Reports: no symptoms Allergies: Coded Allergies: SIMVASTATIN (Verified Allergy, Unknown, 05/26/19) All Systems: reviewed and negative except above Subjective no complaints. more alert. w/o complaints. no fever or chills. remains on iv abx. repeat cxr ordered for am. Objective Last 24 Hour Vital Signs Date Time Temp Pulse Resp B/P (MAP) Pulse Ox O2 Delivery O2 Flow Rate FiO2 06/06/19 12:00 97.9 67 18 112/71 (85) 97 06/06/19 09:00 Nasal Cannula 3.0 06/06/19 08:00 98.9 70 18 107/63 (78) 96 06/06/19 04:00 98.1 77 18 116/60 (78) 94 06/06/19 00:00 98.3 78 20 109/56 (73) 95 06/05/19 21:00 Nasal Cannula 3.0 06/05/19 20:00 99.0 90 20 94/53 (67) 96 06/05/19 19:51 95 Nasal Cannula 3.0 32 06/05/19 16:00 98.2 97 20 121/79 (93) 98 Intake and Output 06/05/19 06/06/19 19:00 07:00 Intake Total 1166.666 ml 137.5 ml Output Total 1200 ml 350 ml Balance -33.334 ml -212.5 ml IV Total 366.666 ml 137.5 ml Other 800 ml Output Urine Total 1200 ml 350 ml Laboratory Tests 06/06/19 06:15: White Blood Count 8.5, Red Blood Count 3.45L, Hemoglobin 9.8L, Hematocrit 29.5L , Mean Corpuscular Volume 85, Mean Corpuscular Hemoglobin 28.5, Mean Corpuscular Hemoglobin Concent 33.3, Red Cell Distribution Width 13.4, Platelet Count 533H, Mean Platelet Volume 5.1L, Neutrophils (%) (Auto) 75.8H, Lymphocytes (%) (Auto) 15.6L, Monocytes (%) (Auto) 5.6, Eosinophils (%) (Auto) 2.3, Basophils (%) (Auto) 0.7, Sodium Level 146H, Potassium Level 3.6, Chloride Level 110H, Carbon Dioxide Level 27, Anion Gap 10, Blood Urea Nitrogen 22H, Creatinine 1.6H, Estimat Glomerular Filtration Rate 41.2, Glucose Level 100, Calcium Level 8.9, Magnesium Level 2.2, Total Bilirubin 0.4, Aspartate Amino Transf (AST/SGOT) 14L, Alanine Aminotransferase (ALT/SGPT) 14, Alkaline Phosphatase 77, Pro-B-Type Natriuretic Peptide 843H, Total Protein 6.9, Albumin 1.8L, Globulin 5.1, Albumin/Globulin Ratio 0.4L Height (Feet): 5 Height (Inches): 6.00 Weight (Pounds): 141 Objective General Appearance: WD/WN, alert, confused Neck: supple Cardiovascular: regular rhythm Respiratory/Chest: rhonchi on the left Abdomen: normal bowel sounds, non tender, soft, no organomegaly Edema: no edema noted Arm (L), no edema noted Arm (R), no edema noted Leg (L), no edema noted Leg (R), no edema noted Pedal (L), no edema noted Pedal (R), no edema noted 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
[2019-06-06] MEDS ORDERED: Tubing IV Secondary IV ONE (14:49)
[2019-06-06] MEDS ORDERED: NS 275ml ONE (14:49)
[2019-06-06 16:00] VITALS: BP 119/85
[2019-06-06 20:00] VITALS: BP 122/70
[2019-06-07] VITALS: BP 155/70
[2019-06-07 04:00] VITALS: BP 140/80
[2019-06-07] MEDS: Midodrine 10mg tab ORAL SCH ×3 (05:56→21:06)
[2019-06-07] MEDS: Piperacillin/Tazobactam 3.375 GM in NS 110 ML IVPB SCH ×3 (05:57→21:08)
--- NOTE | 2019-06-07 06:10 | Progress Note ---
DATE: 06/06/2019 CARDIOLOGY PROGRESS NOTE SUBJECTIVE: Alert. No distress. Remains on antimicrobials. Blood pressure parameters are stable. OBJECTIVE: VITAL SIGNS: Blood pressure 112/71, heart rate 67, respiratory rate 18, and afebrile. LUNGS: Clear. CARDIAC: Regular. ABDOMEN: Soft. EXTREMITIES: No edema. LABORATORY AND DIAGNOSTIC DATA: Chest x-ray from yesterday reveals right lung infiltrate that is worsening. White count 8.5 and hemoglobin 9.8. Sodium 146, potassium 3.6, bicarbonate 27, BUN 22, and creatinine 1.6. Pro-natriuretic peptide 843. Albumin 1.8. IMPRESSION: 1. Pneumonia. 2. Dehydration. 3. Hyperchloremia. 4. Hypernatremia. 5. Acute on chronic kidney injury. 6. Severe protein-calorie malnutrition. 7. Acute on chronic diastolic congestive heart failure. PLAN: 1. Antimicrobials. 2. Respiratory hygiene. 3. Hypotonic IV fluids. 4. Follow up electrolytes. 5. Nutritional support with protein supplement. Hunter Lion M.D. DR: KYLEIGH JOB#: [id number] CC:
[2019-06-07 08:00] VITALS: BP 117/69
[2019-06-07] MEDS: Docusate 100mg cap ORAL SCH ×2 (09:24→18:10)
[2019-06-07] MEDS: Docusate 250mg cap ORAL SCH ×2 (09:24→18:10)
[2019-06-07] MEDS: Megace 400mg/10ml Susp ORAL SCH ×2 (09:24→18:10)
[2019-06-07] MEDS: Pantoprazole Inj IVP SCH (09:24)
[2019-06-07] MEDS: Heparin 5000 units/ml inj SUBQ SCH ×2 (09:26→21:04)
--- NOTE | 2019-06-07 09:32 | Pulmonology Progress Note ---
Assessment/Plan Assessment/Plan IMPRESSION: 1. Pulmonary infiltrates, with bilateral effusions 2. Hypernatremia. 3. Acute renal failure. 4. Toxic metabolic encephalopathy. 5. Chronic encephalopathy. 6. Parkinsonism. 7. Dementia. 8. Severe protein-calorie malnutrition. PLAN elevate head respiratory care as is oxygen as needed monitor imaging for change DVT prophylaxis aspiration precautions as is antibiotics reviewed DNR 02 needs improved impression, plan, and exam edited and reviewed in detail care discussed with RN Subjective Allergies: Coded Allergies: SIMVASTATIN (Verified Allergy, Unknown, 05/26/19) Subjective reviewed care on oxygen as is CXR with ongoing infiltrates but o2 needs improved Objective Last 24 Hour Vital Signs Date Time Temp Pulse Resp B/P (MAP) Pulse Ox O2 Delivery O2 Flow Rate FiO2 06/07/19 04:00 98.0 77 19 140/80 (100) 95 06/07/19 00:00 97.0 79 21 155/70 (98) 99 06/06/19 21:00 Nasal Cannula 3.0 06/06/19 20:00 97.9 78 20 122/70 (87) 99 06/06/19 16:00 98.9 92 19 119/85 (96) 96 06/06/19 12:00 97.9 67 18 112/71 (85) 97 Intake and Output 06/06/19 06/07/19 19:00 07:00 Intake Total 150 ml Output Total 800 ml 350 ml Balance -800 ml -200 ml Intake Oral 150 ml Output Urine Total 800 ml 350 ml Objective GENERAL: The patient is an ill-appearing male, currently on oxygen. HEENT: Negative. Extraocular movements are difficult to assess. Oropharynx with poor overall care. Dry mucous membranes. NECK: Supple. LUNGS: some rhonchi and crackles at both bases. CARDIAC: S1 and S2. Slightly tachycardic. Soft systolic murmur. ABDOMEN: Soft. no distention EXTREMITIES: No cyanosis or clubbing. NEUROLOGIC: The patient is confused. Reduced range of motion. reviewed and edited Current Medications Medications (Trade) Dose Ordered Sig/Monster Route PRN Reason Start Time Stop Time Status Last Admin Dose Admin Docusate Sodium (Colace) 100 mg TWICE A DAY ORAL 06/02/19 09:00 07/02/19 08:59 06/07/19 09:24 Docusate Sodium (Colace) 250 mg BID ORAL 06/04/19 09:00 07/04/19 08:59 06/07/19 09:24 Heparin Sodium (Porcine) (Heparin 5000 units/ml) 5,000 units EVERY 12 HOURS SUBQ 05/27/19 09:00 06/26/19 08:59 06/07/19 09:26 Magnesium Hydroxide (Mom) 30 ml DAILYPRN PRN ORAL Constipation 06/04/19 05:45 07/04/19 05:44 Megestrol Acetate (Megace) 400 mg TWICE A DAY ORAL 06/02/19 09:00 07/02/19 08:59 06/07/19 09:24 Midodrine (Pro-Amatine) 10 mg TID@0600,1400,2200 ORAL 06/04/19 06:00 07/04/19 05:59 06/07/19 05:56 Mirtazapine (Remeron) 7.5 mg BEDTIME ORAL 06/02/19 21:00 07/02/19 20:59 06/06/19 21:55 Pantoprazole (Protonix) 40 mg DAILY IVP 05/27/19 09:00 06/26/19 08:59 06/07/19 09:24 Piperacillin Sod/ Tazobactam Sod 3.375 gm/Sodium Chloride 110 ml @ 27.5 mls/hr EVERY 8 HOURS IVPB 06/05/19 22:00 06/12/19 21:59 06/07/19 05:57 Polyethylene Glycol (Miralax) 17 gm DAILY PRN ORAL Constipation 06/02/19 05:30 07/02/19 05:29 Sodium Chloride 1,000 ml @ 75 mls/hr [id number] IV 06/07/19 01:45 06/07/19 12:00 06/07/19 05:57 Sodium Phosphate (Fleet's Sodium Phosl Enema) 133 ml DAILYPRN PRN RECTAL Constipation 06/04/19 05:45 07/04/19 05:44 Vancomycin HCl (Vanco rx to dose) 1 ea DAILY PRN MISC Per rx protocol 05/27/19 02:00 06/26/19 01:59 Vancomycin HCl 750 mg/Sodium Chloride 275 ml @ 183.333 mls/hr Q24H IVPB 06/05/19 14:00 06/10/19 13:59 06/06/19 14:15 Pedrito Caban MD Jun 07, 2019 09:32
[2019-06-07 10:05] LABS: BASOPHILS % (AUTO) 1.1 % (0.0-2.0); EOSINOPHILS % (AUTO) 2.2 % (0.0-3.0); HEMATOCRIT 30.9 % (42.0-52.0); HEMOGLOBIN 10.1 G/DL (14.2-18.0); LYMPHOCYTES % (AUTO) 16.6 % (20.0-45.0); MEAN CORPUSCULAR VOLUME 86 FL (80-99); MONOCYTES % (AUTO) 7.3 % (1.0-10.0); NEUTROPHILS % (AUTO) 72.8 % (45.0-75.0); PLATELET COUNT 586 K/UL (150-450); RED BLOOD COUNT 3.58 M/UL (4.70-6.10); RED CELL DISTRIBUTION WIDTH 13.7 % (11.6-14.8); WHITE BLOOD COUNT 8.1 K/UL (4.8-10.8)
[2019-06-07 10:24] LABS: ALANINE AMINOTRANSFERASE 10 U/L (12-78); ALBUMIN 1.7 G/DL (3.4-5.0); ALBUMIN/GLOBULIN RATIO 0.3 (1.0-2.7); ALKALINE PHOSPHATASE 68 U/L (46-116); ANION GAP 12 mmol/L (5-15); ASPARTATE AMINO TRANSFERASE 15 U/L (15-37); BILIRUBIN,TOTAL 0.4 MG/DL (0.2-1.0); BLOOD UREA NITROGEN 25 mg/dL (7-18); CALCIUM 8.1 MG/DL (8.5-10.1); CARBON DIOXIDE 25 MMOL/L (21-32); CHLORIDE 114 MMOL/L (98-107); CREATININE 1.5 MG/DL (0.55-1.30); POTASSIUM 3.4 MMOL/L (3.5-5.1); SODIUM 151 MMOL/L (136-145)
[2019-06-07 12:00] VITALS: BP 121/70
--- NOTE | 2019-06-07 13:17 | General Progress Note ---
Assessment/Plan Problem List: (1) ROSA (acute kidney injury) ICD Codes: N17.9 - Acute kidney failure, unspecified SNOMED: 80637151, 2592580 (2) Dehydration ICD Codes: E86.0 - Dehydration SNOMED: 60595097, 2011945 (3) Respiratory failure with hypoxia ICD Codes: J96.91 - Respiratory failure, unspecified with hypoxia SNOMED: 24833756964919858 Qualifiers: Qualified Codes: J96.01 - Acute respiratory failure with hypoxia (4) Sepsis ICD Codes: A41.9 - Sepsis, unspecified organism SNOMED: 12102816, 929155930 Qualifiers: Qualified Codes: A41.9 - Sepsis, unspecified organism; R65.20 - Severe sepsis without septic shock; J96.01 - Acute respiratory failure with hypoxia (5) UTI (urinary tract infection) ICD Codes: N39.0 - Urinary tract infection, site not specified SNOMED: 33240205, 028516522 Qualifiers: Qualified Codes: N30.00 - Acute cystitis without hematuria (6) HCAP (healthcare-associated pneumonia) ICD Codes: J18.9 - Pneumonia, unspecified organism SNOMED: 150800139, 952457883 Status: stable Assessment/Plan: cont iv abx follow up cxr ivf adjusted lasix daily as bp tolerates midodrine for low bp resp rx/o2- try to wean follow up labs megace follow up cultures replace lytes as needed bowel regime dc planning if pulm status better Subjective ROS Limited/Unobtainable: No Constitutional: Reports: malaise, weakness HEENT: Reports: no symptoms Cardiovascular: Reports: no symptoms Respiratory: Reports: cough, shortness of breath Gastrointestinal/Abdominal: Reports: difficulty swallowing, poor appetite, poor fluid intake Genitourinary: Reports: no symptoms Neurologic/Psychiatric: Reports: depressed Endocrine: Reports: no symptoms Hematologic/Lymphatic: Reports: no symptoms Allergies: Coded Allergies: SIMVASTATIN (Verified Allergy, Unknown, 05/26/19) Subjective no complaints. more alert. w/o complaints. no fever or chills. remains on iv abx. repeat cxr ordered for am. Na up. Objective Last 24 Hour Vital Signs Date Time Temp Pulse Resp B/P (MAP) Pulse Ox O2 Delivery O2 Flow Rate FiO2 06/07/19 09:00 Nasal Cannula 3.0 06/07/19 08:00 98.0 79 17 117/69 (85) 95 06/07/19 04:00 98.0 77 19 140/80 (100) 95 06/07/19 00:00 97.0 79 21 155/70 (98) 99 06/06/19 21:00 Nasal Cannula 3.0 06/06/19 20:00 97.9 78 20 122/70 (87) 99 06/06/19 16:00 98.9 92 19 119/85 (96) 96 Intake and Output 06/06/19 06/07/19 19:00 07:00 Intake Total 150 ml Output Total 800 ml 350 ml Balance -800 ml -200 ml Intake Oral 150 ml Output Urine Total 800 ml 350 ml Laboratory Tests 06/07/19 09:45: White Blood Count 8.1, Red Blood Count 3.58L, Hemoglobin 10.1L, Hematocrit 30.9L , Mean Corpuscular Volume 86, Mean Corpuscular Hemoglobin 28.2, Mean Corpuscular Hemoglobin Concent 32.7, Red Cell Distribution Width 13.7, Platelet Count 586H, Mean Platelet Volume 5.0L, Neutrophils (%) (Auto) 72.8, Lymphocytes (%) (Auto) 16.6L, Monocytes (%) (Auto) 7.3, Eosinophils (%) (Auto) 2.2, Basophils (%) (Auto) 1.1, Sodium Level 151H, Potassium Level 3.4L, Chloride Level 114H, Carbon Dioxide Level 25, Anion Gap 12, Blood Urea Nitrogen 25H, Creatinine 1.5H, Estimat Glomerular Filtration Rate 44.4, Glucose Level 84, Calcium Level 8.1L, Magnesium Level 1.9, Total Bilirubin 0.4, Aspartate Amino Transf (AST/SGOT) 15, Alanine Aminotransferase (ALT/SGPT) 10L, Alkaline Phosphatase 68, Total Protein 6.6, Albumin 1.7L, Globulin 4.9, Albumin/Globulin Ratio 0.3L Height (Feet): 5 Height (Inches): 6.00 Weight (Pounds): 141 Objective General Appearance: WD/WN, alert, confused Neck: supple Cardiovascular: regular rhythm Respiratory/Chest: rhonchi on the left Abdomen: normal bowel sounds, non tender, soft, no organomegaly Edema: no edema noted Arm (L), no edema noted Arm (R), no edema noted Leg (L), no edema noted Leg (R), no edema noted Pedal (L), no edema noted Pedal (R), no edema noted 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
[2019-06-07] MEDS: Vancomycin 750mg/NS 275ml IVPB SCH ×2 (13:54)
--- NOTE | 2019-06-07 15:06 | Diagnostic Imaging Report ---
EXAM: XR Chest, 1 View CLINICAL HISTORY: SOB TECHNIQUE: Frontal view of the chest. COMPARISON: Chest radiograph on 06/05/2019 FINDINGS: Hardware: None. Lungs/pleura: Patchy hazy and interstitial opacities throughout the lungs. Small bilateral pleural effusions. Heart/mediastinum: Atherosclerotic calcifications in the aorta. No significant cardiomegaly. Soft tissues: Unremarkable. Bones: No acute fracture. Degenerative changes of the visualized left acromioclavicular joint, glenohumeral joints, and spine. Upper abdomen: Normal. IMPRESSION: Similar patchy hazy and interstitial opacities throughout the lungs may represent pulmonary vasculature congestion and pulmonary edema versus infectious/inflammatory process. Small bilateral pleural effusions.
[2019-06-07 16:00] VITALS: BP 115/75
[2019-06-07 20:00] VITALS: BP 120/91
--- NOTE | 2019-06-07 22:45 | Progress Note ---
DATE: 06/07/2019 CARDIOLOGY PROGRESS NOTE SUBJECTIVE: The patient has less shortness of breath. Remaining on antimicrobials and respiratory hygiene. Continues on midodrine for low blood pressure support. Has been on diuretic therapy. PHYSICAL EXAMINATION: VITAL SIGNS: Blood pressure 140/80, heart rate 77, respiratory rate 19, and afebrile. LUNGS: Bilateral breath sounds. CARDIAC: Regular rhythm and rate. Normal S1 and S2. ABDOMEN: Soft. EXTREMITIES: No edema. LABORATORY DATA: Sodium 151, potassium 3.4, bicarbonate 25, BUN 25, creatinine 1.5, and magnesium 1.9. Albumin 1.7. White count 8.1 and hemoglobin 10.1. IMPRESSION: 1. Dehydration. 2. Hypernatremia. 3. Hypokalemia. 4. Pulmonary infiltrates with pleural effusions. 5. Parkinsonism dementia. 6. Severe protein-calorie malnutrition. PLAN: 1. Free water replacement. 2. Hold diuretics. 3. Antimicrobials. 4. Respiratory hygiene. 5. Bronchodilators. 6. Aspiration precautions. 7. Protein supplement. 8. DVT prophylaxis. 9. Potassium supplement. Hunter Lion M.D. DR: KYLEIGH JOB#: [id number] CC:
[2019-06-08] VITALS: BP 139/81
[2019-06-08 04:00] VITALS: BP 119/62
[2019-06-08] MEDS: Piperacillin/Tazobactam 3.375 GM in NS 110 ML IVPB SCH ×3 (05:35→21:55)
[2019-06-08] MEDS: Midodrine 10mg tab ORAL SCH ×3 (05:35→21:55)
[2019-06-08 08:00] VITALS: BP 118/55
[2019-06-08] MEDS: Docusate 100mg cap ORAL SCH ×2 (08:29→18:37)
[2019-06-08] MEDS: Docusate 250mg cap ORAL SCH ×2 (08:29→18:37)
[2019-06-08] MEDS: Megace 400mg/10ml Susp ORAL SCH ×2 (08:29→18:37)
[2019-06-08] MEDS: Pantoprazole Inj IVP SCH (08:30)
[2019-06-08] MEDS: Heparin 5000 units/ml inj SUBQ SCH ×2 (08:30→21:57)
[2019-06-08 09:35] LABS: ALANINE AMINOTRANSFERASE 11 U/L (12-78); ALBUMIN 1.7 G/DL (3.4-5.0); ALBUMIN/GLOBULIN RATIO 0.4 (1.0-2.7); ALKALINE PHOSPHATASE 65 U/L (46-116); ANION GAP 9 mmol/L (5-15); ASPARTATE AMINO TRANSFERASE 15 U/L (15-37); BILIRUBIN,TOTAL 0.3 MG/DL (0.2-1.0); BLOOD UREA NITROGEN 24 mg/dL (7-18); CALCIUM 8.2 MG/DL (8.5-10.1); CARBON DIOXIDE 26 MMOL/L (21-32); CHLORIDE 111 MMOL/L (98-107); CREATININE 1.3 MG/DL (0.55-1.30); POTASSIUM 4.4 MMOL/L (3.5-5.1); SODIUM 146 MMOL/L (136-145)
--- NOTE | 2019-06-08 11:08 | Pulmonology Progress Note ---
Assessment/Plan Assessment/Plan IMPRESSION: 1. Pulmonary infiltrates, with bilateral effusions 2. Hypernatremia. 3. Acute renal failure. 4. Toxic metabolic encephalopathy. 5. Chronic encephalopathy. 6. Parkinsonism. 7. Dementia. 8. Severe protein-calorie malnutrition. PLAN elevate head respiratory care as is oxygen as needed monitor imaging for change DVT prophylaxis aspiration precautions as is antibiotics reviewed DNR 02 needs noted impression, plan, and exam edited and reviewed in detail care discussed with RN Subjective Allergies: Coded Allergies: SIMVASTATIN (Verified Allergy, Unknown, 05/26/19) Subjective reviewed care on oxygen as is CXR with ongoing infiltrates but o2 needs improved Objective Last 24 Hour Vital Signs Date Time Temp Pulse Resp B/P (MAP) Pulse Ox O2 Delivery O2 Flow Rate FiO2 06/08/19 08:00 97.8 74 18 118/55 (76) 97 06/08/19 04:00 98.6 78 20 119/62 (81) 97 06/08/19 00:00 98.2 81 20 139/81 (100) 95 06/07/19 21:00 Nasal Cannula 3.0 06/07/19 20:00 97.9 87 20 120/91 (101) 94 06/07/19 16:00 98.0 88 18 115/75 (88) 97 06/07/19 12:00 98.7 81 18 121/70 (87) 95 Intake and Output 06/07/19 06/08/19 19:00 07:00 Intake Total 680 ml 760.0 ml Output Total 350 ml Balance 680 ml 410.0 ml Intake Oral 150 ml IV Total 180 ml 610.0 ml Other 500 ml Output Urine Total 350 ml Objective GENERAL: The patient is an ill-appearing male, currently on oxygen. HEENT: Negative. Extraocular movements are difficult to assess. Oropharynx with poor overall care. Dry mucous membranes. NECK: Supple. LUNGS: some rhonchi and crackles at both bases. CARDIAC: S1 and S2. Slightly tachycardic. Soft systolic murmur. ABDOMEN: Soft. no distention EXTREMITIES: No cyanosis or clubbing. NEUROLOGIC: The patient is confused. Reduced range of motion. reviewed and edited Laboratory Tests 06/08/19 07:20: Sodium Level 146H, Potassium Level 4.4, Chloride Level 111H, Carbon Dioxide Level 26, Anion Gap 9, Blood Urea Nitrogen 24H, Creatinine 1.3, Estimat Glomerular Filtration Rate 52.3, Glucose Level 115H, Calcium Level 8.2L, Total Bilirubin 0.3, Aspartate Amino Transf (AST/SGOT) 15, Alanine Aminotransferase ( ALT/SGPT) 11L, Alkaline Phosphatase 65, Pro-B-Type Natriuretic Peptide 762H, Total Protein 5.8L, Albumin 1.7L, Globulin 4.1, Albumin/Globulin Ratio 0.4L Current Medications Medications (Trade) Dose Ordered Sig/Monster Route PRN Reason Start Time Stop Time Status Last Admin Dose Admin Dextrose 1,000 ml @ 100 mls/hr Q10H IV 06/07/19 14:00 07/07/19 13:59 06/08/19 10:10 Docusate Sodium (Colace) 100 mg TWICE A DAY ORAL 06/02/19 09:00 07/02/19 08:59 06/08/19 08:29 Docusate Sodium (Colace) 250 mg BID ORAL 06/04/19 09:00 07/04/19 08:59 06/08/19 08:29 Heparin Sodium (Porcine) (Heparin 5000 units/ml) 5,000 units EVERY 12 HOURS SUBQ 05/27/19 09:00 06/26/19 08:59 06/08/19 08:30 Magnesium Hydroxide (Mom) 30 ml DAILYPRN PRN ORAL Constipation 06/04/19 05:45 07/04/19 05:44 Megestrol Acetate (Megace) 400 mg TWICE A DAY ORAL 06/02/19 09:00 07/02/19 08:59 06/08/19 08:29 Midodrine (Pro-Amatine) 10 mg TID@0600,1400,2200 ORAL 06/04/19 06:00 07/04/19 05:59 06/08/19 05:35 Mirtazapine (Remeron) 7.5 mg BEDTIME ORAL 06/02/19 21:00 07/02/19 20:59 06/07/19 21:02 Pantoprazole (Protonix) 40 mg DAILY IVP 05/27/19 09:00 06/26/19 08:59 06/08/19 08:30 Piperacillin Sod/ Tazobactam Sod 3.375 gm/Sodium Chloride 110 ml @ 27.5 mls/hr EVERY 8 HOURS IVPB 06/05/19 22:00 06/12/19 21:59 06/08/19 05:35 Polyethylene Glycol (Miralax) 17 gm DAILY PRN ORAL Constipation 06/02/19 05:30 07/02/19 05:29 Sodium Phosphate (Fleet's Sodium Phosl Enema) 133 ml DAILYPRN PRN RECTAL Constipation 06/04/19 05:45 07/04/19 05:44 Vancomycin HCl (Vanco rx to dose) 1 ea DAILY PRN MISC Per rx protocol 05/27/19 02:00 06/26/19 01:59 Vancomycin HCl 750 mg/Sodium Chloride 275 ml @ 183.333 mls/hr Q24H IVPB 06/05/19 14:00 06/10/19 13:59 06/07/19 13:54 Pedrito Caban MD Jun 08, 2019 11:07
[2019-06-08 12:00] VITALS: BP 121/63
[2019-06-08] MEDS ORDERED: Tubing IV Secondary IV ONE (13:46)
[2019-06-08] MEDS: Vancomycin 750mg/NS 275ml IVPB SCH ×2 (14:56)
--- NOTE | 2019-06-08 15:30 | Progress Note ---
DATE: 06/08/2019 CARDIOLOGY PROGRESS NOTE SUBJECTIVE: The patient continues to have hypoxia due to pulmonary infiltrates as noted on recent chest radiograph. He remains on hypotonic IV fluids. Oral intake is somewhat improved. OBJECTIVE: VITAL SIGNS: Blood pressure 118/55, pulse 74, respirations 18. LUNGS: Bilateral breath sounds. Few rales. CARDIAC: Regular rhythm and rate. Normal S1, S2. ABDOMEN: Soft. EXTREMITIES: Trace dependent edema. LABORATORY DATA: Sodium 146, potassium 4.4, chloride 111, bicarb 26, BUN 24, creatinine 1.3, pro-natriuretic peptide 762, albumin 1.7. IMPRESSION: 1. Healthcare-associated pneumonia. 2. Dysphagia. 3. Dehydration. 4. Hypernatremia. 5. Hypertensive heart disease. 6. Acute on chronic diastolic congestive heart failure. 7. Hypomagnesemia. 8. Hypokalemia. 9. Metabolic encephalopathy. PLAN: 1. Hypotonic IV fluids. 2. Replace potassium. 3. Replace magnesium. 4. Antimicrobials. 5. Respiratory hygiene. 6. Titrate cardiovascular medications for optimal blood pressure management and monitor volume status. 7. No role for diuretic therapy at this time. Hunter Lion M.D. DR: ELSY JOB#: [id number] CC:
[2019-06-08 16:00] VITALS: BP 103/54
[2019-06-08 20:00] VITALS: BP 97/54
--- NOTE | 2019-06-08 20:48 | General Progress Note ---
Assessment/Plan Problem List: (1) ROSA (acute kidney injury) ICD Codes: N17.9 - Acute kidney failure, unspecified SNOMED: 50592562, 5116709 (2) Dehydration ICD Codes: E86.0 - Dehydration SNOMED: 66926779, 7509230 (3) Respiratory failure with hypoxia ICD Codes: J96.91 - Respiratory failure, unspecified with hypoxia SNOMED: 51863389528718571 Qualifiers: Qualified Codes: J96.01 - Acute respiratory failure with hypoxia (4) Sepsis ICD Codes: A41.9 - Sepsis, unspecified organism SNOMED: 32805105, 208010159 Qualifiers: Qualified Codes: A41.9 - Sepsis, unspecified organism; R65.20 - Severe sepsis without septic shock; J96.01 - Acute respiratory failure with hypoxia (5) UTI (urinary tract infection) ICD Codes: N39.0 - Urinary tract infection, site not specified SNOMED: 75171300, 652267086 Qualifiers: Qualified Codes: N30.00 - Acute cystitis without hematuria (6) HCAP (healthcare-associated pneumonia) ICD Codes: J18.9 - Pneumonia, unspecified organism SNOMED: 737422262, 625011949 Status: stable Assessment/Plan: cont iv abx monitor cxr ivf follow up labs in the am midodrine for low bp resp rx/o2- try to wean follow up labs megace follow up cultures replace lytes as needed bowel regime dc planning if pulm status better Subjective ROS Limited/Unobtainable: No Constitutional: Reports: malaise, weakness HEENT: Reports: no symptoms Cardiovascular: Reports: no symptoms Respiratory: Reports: cough, shortness of breath Gastrointestinal/Abdominal: Reports: difficulty swallowing Genitourinary: Reports: no symptoms Neurologic/Psychiatric: Reports: anxiety, depressed, emotional problems Endocrine: Reports: no symptoms Hematologic/Lymphatic: Reports: anemia Allergies: Coded Allergies: SIMVASTATIN (Verified Allergy, Unknown, 05/26/19) All Systems: reviewed and negative except above Subjective no complaints. more alert. w/o complaints. no fever or chills. remains on iv abx. repeat cxr unchanged. Objective Last 24 Hour Vital Signs Date Time Temp Pulse Resp B/P (MAP) Pulse Ox O2 Delivery O2 Flow Rate FiO2 06/08/19 20:34 96 Nasal Cannula 3.0 32 06/08/19 16:00 97.6 70 20 103/54 (70) 98 06/08/19 12:00 97.6 69 20 121/63 (82) 94 06/08/19 09:00 Nasal Cannula 3.0 06/08/19 08:00 97.8 74 18 118/55 (76) 97 06/08/19 04:00 98.6 78 20 119/62 (81) 97 06/08/19 00:00 98.2 81 20 139/81 (100) 95 06/07/19 21:00 Nasal Cannula 3.0 Intake and Output 06/07/19 06/08/19 19:00 07:00 Intake Total 680 ml 760.0 ml Output Total 350 ml Balance 680 ml 410.0 ml Intake Oral 150 ml IV Total 180 ml 610.0 ml Other 500 ml Output Urine Total 350 ml Laboratory Tests 06/08/19 07:20: Sodium Level 146H, Potassium Level 4.4, Chloride Level 111H, Carbon Dioxide Level 26, Anion Gap 9, Blood Urea Nitrogen 24H, Creatinine 1.3, Estimat Glomerular Filtration Rate 52.3, Glucose Level 115H, Calcium Level 8.2L, Total Bilirubin 0.3, Aspartate Amino Transf (AST/SGOT) 15, Alanine Aminotransferase ( ALT/SGPT) 11L, Alkaline Phosphatase 65, Pro-B-Type Natriuretic Peptide 762H, Total Protein 5.8L, Albumin 1.7L, Globulin 4.1, Albumin/Globulin Ratio 0.4L Height (Feet): 5 Height (Inches): 6.00 Weight (Pounds): 141 Objective General Appearance: WD/WN, alert, confused Neck: supple Cardiovascular: regular rhythm Respiratory/Chest: rhonchi on the left Abdomen: normal bowel sounds, non tender, soft, no organomegaly Edema: no edema noted Arm (L), no edema noted Arm (R), no edema noted Leg (L), no edema noted Leg (R), no edema noted Pedal (L), no edema noted Pedal (R), no edema noted 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
[2019-06-09] VITALS: BP 116/56
[2019-06-09 04:00] VITALS: BP 99/60
[2019-06-09] MEDS: Midodrine 10mg tab ORAL SCH ×3 (06:04→21:04)
[2019-06-09] MEDS: Piperacillin/Tazobactam 3.375 GM in NS 110 ML IVPB SCH (06:04)
[2019-06-09 08:00] VITALS: BP 118/69
--- NOTE | 2019-06-09 08:24 | Pulmonology Progress Note ---
Assessment/Plan Assessment/Plan IMPRESSION: 1. Pulmonary infiltrates, with bilateral effusions 2. Hypernatremia. 3. Acute renal failure. 4. Toxic metabolic encephalopathy. 5. Chronic encephalopathy. 6. Parkinsonism. 7. Dementia. 8. Severe protein-calorie malnutrition. PLAN elevate head check swallow respiratory care as is oxygen as needed monitor imaging for change; today DVT prophylaxis aspiration precautions as is antibiotics reviewed monitor I/O DNR 02 needs noted impression, plan, and exam edited and reviewed in detail care discussed with RN Subjective Allergies: Coded Allergies: SIMVASTATIN (Verified Allergy, Unknown, 05/26/19) Subjective reviewed care on oxygen CXR with ongoing infiltrates swallow and repeat cxr pending Objective Last 24 Hour Vital Signs Date Time Temp Pulse Resp B/P (MAP) Pulse Ox O2 Delivery O2 Flow Rate FiO2 06/09/19 08:00 98.0 85 19 118/69 (85) 94 06/09/19 04:00 98.0 76 20 99/60 (73) 97 06/09/19 00:00 97.7 81 18 116/56 (76) 95 06/08/19 21:00 Nasal Cannula 3.0 06/08/19 20:34 96 Nasal Cannula 3.0 32 06/08/19 20:00 98.2 79 16 97/54 (68) 98 06/08/19 16:00 97.6 70 20 103/54 (70) 98 06/08/19 12:00 97.6 69 20 121/63 (82) 94 06/08/19 09:00 Nasal Cannula 3.0 Intake and Output 06/08/19 06/09/19 19:00 07:00 Intake Total 240 ml Output Total 200 ml 400 ml Balance 40 ml -400 ml Intake Oral 240 ml Output Urine Total 200 ml 400 ml # Voids 2 Objective GENERAL: remains ill, currently on oxygen. HEENT: Negative. Extraocular movements are difficult to assess. Oropharynx with poor overall care. Dry mucous membranes. NECK: Supple. LUNGS: some rhonchi and reduced breath sounds bilaterally; no wheeze CARDIAC: S1 and S2. Slightly tachycardic. Soft systolic murmur. ABDOMEN: Soft. no distention EXTREMITIES: No cyanosis or clubbing. NEUROLOGIC: The patient is confused. Reduced range of motion. reviewed and edited Current Medications Medications (Trade) Dose Ordered Sig/Monster Route PRN Reason Start Time Stop Time Status Last Admin Dose Admin Dextrose 1,000 ml @ 75 mls/hr [id number] IV 06/08/19 14:00 07/08/19 13:59 06/08/19 23:45 Docusate Sodium (Colace) 100 mg TWICE A DAY ORAL 06/02/19 09:00 07/02/19 08:59 06/08/19 18:37 Docusate Sodium (Colace) 250 mg BID ORAL 06/04/19 09:00 07/04/19 08:59 06/08/19 18:37 Heparin Sodium (Porcine) (Heparin 5000 units/ml) 5,000 units EVERY 12 HOURS SUBQ 05/27/19 09:00 06/26/19 08:59 06/08/19 21:57 Magnesium Hydroxide (Mom) 30 ml DAILYPRN PRN ORAL Constipation 06/04/19 05:45 07/04/19 05:44 Megestrol Acetate (Megace) 400 mg TWICE A DAY ORAL 06/02/19 09:00 07/02/19 08:59 06/08/19 18:37 Midodrine (Pro-Amatine) 10 mg TID@0600,1400,2200 ORAL 06/04/19 06:00 07/04/19 05:59 06/09/19 06:04 Mirtazapine (Remeron) 7.5 mg BEDTIME ORAL 06/02/19 21:00 07/02/19 20:59 06/08/19 21:55 Pantoprazole (Protonix) 40 mg DAILY IVP 05/27/19 09:00 06/26/19 08:59 06/08/19 08:30 Piperacillin Sod/ Tazobactam Sod 3.375 gm/Sodium Chloride 110 ml @ 27.5 mls/hr EVERY 8 HOURS IVPB 06/05/19 22:00 06/12/19 21:59 06/09/19 06:04 Polyethylene Glycol (Miralax) 17 gm DAILY PRN ORAL Constipation 06/02/19 05:30 07/02/19 05:29 Sodium Phosphate (Fleet's Sodium Phosl Enema) 133 ml DAILYPRN PRN RECTAL Constipation 06/04/19 05:45 07/04/19 05:44 Vancomycin HCl (Vanco rx to dose) 1 ea DAILY PRN MISC Per rx protocol 05/27/19 02:00 06/26/19 01:59 Vancomycin HCl 750 mg/Sodium Chloride 275 ml @ 183.333 mls/hr Q24H IVPB 06/05/19 14:00 06/10/19 13:59 06/08/19 14:56 Pedrito Caban MD Jun 09, 2019 08:24
[2019-06-09] MEDS: Megace 400mg/10ml Susp ORAL SCH ×2 (08:38→17:12)
[2019-06-09] MEDS: Pantoprazole Inj IVP SCH (08:38)
[2019-06-09] MEDS: Docusate 100mg cap ORAL SCH ×2 (08:38→17:11)
[2019-06-09] MEDS: Docusate 250mg cap ORAL SCH ×2 (08:38→17:11)
[2019-06-09 08:50] LABS: BASOPHILS % (AUTO) 1.2 % (0.0-2.0); EOSINOPHILS % (AUTO) 3.1 % (0.0-3.0); HEMATOCRIT 28.4 % (42.0-52.0); HEMOGLOBIN 9.3 G/DL (14.2-18.0); LYMPHOCYTES % (AUTO) 21.9 % (20.0-45.0); MEAN CORPUSCULAR VOLUME 86 FL (80-99); MONOCYTES % (AUTO) 8.9 % (1.0-10.0); PLATELET COUNT 534 K/UL (150-450); RED BLOOD COUNT 3.29 M/UL (4.70-6.10); RED CELL DISTRIBUTION WIDTH 13.3 % (11.6-14.8); WHITE BLOOD COUNT 7.4 K/UL (4.8-10.8)
[2019-06-09] MEDS: Heparin 5000 units/ml inj SUBQ SCH ×2 (08:52→21:05)
[2019-06-09 09:22] LABS: ANION GAP 7 mmol/L (5-15); BLOOD UREA NITROGEN 17 mg/dL (7-18); CALCIUM 8.8 MG/DL (8.5-10.1); CARBON DIOXIDE 27 MMOL/L (21-32); CHLORIDE 108 MMOL/L (98-107); CREATININE 1.4 MG/DL (0.55-1.30); SODIUM 142 MMOL/L (136-145)
--- NOTE | 2019-06-09 11:57 | Diagnostic Imaging Report ---
Indication: Shortness of breath Technique: One view of the chest Comparison: 06/07/2019 Findings: There is increasingly dense consolidation of the right midlung. Patchy consolidation in the left lung and generalized interstitial disease are unchanged. The heart size is normal. There is evidence of small bilateral pleural effusions. The aorta is tortuous ectatic and calcified. Impression: Increasing right midlung infiltrate, persistent parenchymal disease elsewhere, as described Persistent small bilateral pleural effusions
[2019-06-09 12:00] VITALS: BP 136/63
--- NOTE | 2019-06-09 15:45 | Consultation ---
DATE OF CONSULTATION: 06/09/2019 INFECTIOUS DISEASES CONSULTATION CONSULTING PHYSICIAN: Johnnie Hi M.D. REFERRING PHYSICIAN: Andrei Gunter M.D. REASON FOR CONSULTATION: Pneumonia. HISTORY OF PRESENT ILLNESS: This is an 88-year-old gentleman with history of hypertension, dementia, cardiovascular disease, abdominal aortic aneurysm status post repair, who was transferred from a half-way facility with cough, congestion, shortness of breath, and confusion. He was found to have bilateral infiltrates on a chest x-ray with pneumonia and an Infectious Diseases consultation has been obtained for antibiotics. PAST MEDICAL HISTORY: 1. History of dementia. 2. Atherosclerotic cardiovascular disease. 3. Hypertension. 4. Abdominal aortic aneurysm status post repair. 5. History of urinary retention. SOCIAL HISTORY: No history of smoking, alcohol, or drug use. FAMILY HISTORY: Noncontributory. REVIEW OF SYSTEMS: Unable to obtain currently. MEDICATIONS: As an inpatient, the patient is on vancomycin, Zosyn, docusate, midodrine, milk of magnesia, Remeron, megestrol, docusate, MiraLAX, Protonix, subcutaneous heparin. ALLERGIES: To simvastatin noted. PHYSICAL EXAMINATION: VITAL SIGNS: Temperature of 98, T-max of 98.6, pulse of 85, respiratory rate of 19, blood pressure 118/69, O2 saturation of 94%. HEENT: Pupils equally reactive to light and accommodation. Mouth appears clean without thrush. NECK: Supple. No adenopathy. No JVD. CARDIOVASCULAR: Regular rate and rhythm. No murmurs. LUNGS: Clear to auscultation bilaterally. No crackles. No wheezes. ABDOMEN: Soft and nontender. No organomegaly. EXTREMITIES: No cyanosis, no clubbing, no edema. LABORATORY AND DIAGNOSTIC DATA: White count of 7.4, hemoglobin 9.3, hematocrit 28.4, MCV 86, platelet count of 534 with neutrophils of 65%. Sodium 142, potassium 4, chloride 108, bicarb 27, BUN 17, creatinine 1.4, glucose 84, calcium 8.8. Total bilirubin 0.3, AST 15, ALT 11, and alkaline phosphatase 65, total protein 5.8, albumin 1.7. UA showing too numerous to count white cells. Urine culture is growing Proteus, susceptible to cefazolin, ceftriaxone, piperacillin and tazobactam 05/26/2019. Rectal swab was negative for VRE. Nasal swab was negative for MRSA. Chest x-ray is showing similar patchy hazy and interstitial opacities throughout the lungs, may represent congestion and edema versus infectious process, small bilateral pleural effusions noted. CT chest on 06/02/2019 showing airspace ground-glass opacities demonstrated throughout both lungs, may be related to pulmonary edema or infection, COPD, emphysema noted, bilateral pleural effusions noted, degenerative joint disease of the spine noted. ASSESSMENT: This is a 88-year-old gentleman with history of hypertension, cardiovascular disease, dementia, who comes in with cough, congestion and shortness of breath and is found to have: 1. Possible aspiration pneumonia is improving. 2. Proteus urinary tract infection status post therapy. 3. Leukocytosis has resolved. 4. Hypertension. PLAN: 1. Discontinue vancomycin iv Zosyn. 2. Observe off antibiotics. 3. We will follow up the patient clinically. I would like to thank, Dr. Gunter, for this consultation. Johnnie Hi M.D. DR: Huan JOB#: [id number] CC: Andrei Gunter M.D. [facility]
[2019-06-09 16:00] VITALS: BP 122/57
[2019-06-09 20:00] VITALS: BP 114/84
--- NOTE | 2019-06-09 23:15 | Progress Note ---
DATE: 06/09/2019 CARDIOLOGY PROGRESS NOTE SUBJECTIVE: Still with cough, congestion. Chest x-ray today reveals worsening right lobar infiltrate. OBJECTIVE: VITAL SIGNS: Blood pressure 114/84, heart rate 65, respirations 18, oxygen saturation on 3 liters 97%. LUNGS: Coarse breath sounds, rhonchi. CARDIAC: Regular rhythm and rate. Normal S1, S2. ABDOMEN: Soft. EXTREMITIES: No edema. LABORATORY DATA: Sodium 142, potassium 4, bicarb 27, BUN 17, creatinine 1.4. Pro natriuretic peptide 957. IMPRESSION: 1. Pneumonia. 2. Worsening infiltrate on chest radiograph. 3. Severe protein-calorie malnutrition. 4. Acute on chronic diastolic congestive heart failure. 5. Acute on chronic renal failure, improved. 6. Dehydration, hypernatremia corrected. PLAN: 1. Discontinue IV fluids. 2. Encourage oral intake with protein supplements. 3. Respiratory hygiene. 4. Bronchodilators. 5. Empiric antimicrobials. 6. Nasal oxygen. 7. DVT prophylaxis. Hunter Lion M.D. DR: MERA JOB#: [id number] CC:
[2019-06-10] VITALS: BP 127/74
[2019-06-10] MEDS: Albuterol/Ipratropium 3ml neb HHN SCH ×4 (00:48→19:50)
[2019-06-10 04:00] VITALS: BP 144/80
[2019-06-10 08:00] VITALS: BP 123/60
--- NOTE | 2019-06-10 08:58 | Pulmonology Progress Note ---
Assessment/Plan Assessment/Plan IMPRESSION: 1. Pulmonary infiltrates, with bilateral effusions 2. Hypernatremia. 3. Acute renal failure. 4. Toxic metabolic encephalopathy. 5. Chronic encephalopathy. 6. Parkinsonism. 7. Dementia. 8. Severe protein-calorie malnutrition. PLAN elevate head monitor for aspiration respiratory care as is oxygen as needed monitor imaging for change; not yet improved DVT prophylaxis aspiration precautions as is antibiotics reviewed monitor I/O DNR 02 needs noted one dose of lasix impression, plan, and exam edited and reviewed in detail care discussed with RN Subjective ROS Limited/Unobtainable: Yes Allergies: Coded Allergies: SIMVASTATIN (Verified Allergy, Unknown, 05/26/19) Subjective reviewed care on oxygen CXR not improved fluid discontinued Objective Last 24 Hour Vital Signs Date Time Temp Pulse Resp B/P (MAP) Pulse Ox O2 Delivery O2 Flow Rate FiO2 06/10/19 08:34 Nasal Cannula 3.0 06/10/19 08:24 70 22 94 Nasal Cannula 3.0 32 78 20 91 06/10/19 08:23 92 Nasal Cannula 3.0 32 06/10/19 08:00 98.6 81 19 123/60 (81) 91 06/10/19 04:00 98.1 75 22 144/80 (101) 95 06/10/19 00:51 70 18 96 Nasal Cannula 3.0 32 78 18 94 06/10/19 00:51 71 18 94 Nasal Cannula 3.0 32 06/10/19 00:51 94 Nasal Cannula 3.0 32 06/10/19 00:00 98.3 74 18 127/74 (91) 96 06/09/19 21:31 Nasal Cannula 3.0 06/09/19 20:00 98.1 65 18 114/84 (94) 97 06/09/19 16:00 98.0 69 17 122/57 (78) 96 06/09/19 12:00 98.2 53 17 136/63 (87) 96 06/09/19 09:00 Nasal Cannula 3.0 Intake and Output 06/09/19 06/10/19 19:00 07:00 Intake Total 300 ml Output Total 1100 ml Balance -800 ml Intake Oral 300 ml Output Urine Total 1100 ml Objective GENERAL: remains ill, currently on oxygen. HEENT: Negative. Extraocular movements are difficult to assess. Oropharynx with poor overall care. Dry mucous membranes. NECK: Supple. LUNGS: some rhonchi and reduced breath sounds bilaterally; no wheeze CARDIAC: S1 and S2. Slightly tachycardic. Soft systolic murmur. ABDOMEN: Soft. no distention EXTREMITIES: No cyanosis or clubbing. NEUROLOGIC: The patient is confused. Reduced range of motion. reviewed and edited Current Medications Medications (Trade) Dose Ordered Sig/Monster Route PRN Reason Start Time Stop Time Status Last Admin Dose Admin Albuterol/ Ipratropium (Albuterol/ Ipratropium) 3 ml Q6HRT HHN 06/09/19 22:45 06/14/19 22:44 06/10/19 08:22 Docusate Sodium (Colace) 100 mg TWICE A DAY ORAL 06/02/19 09:00 07/02/19 08:59 06/09/19 17:11 Docusate Sodium (Colace) 250 mg BID ORAL 06/04/19 09:00 07/04/19 08:59 06/09/19 17:11 Heparin Sodium (Porcine) (Heparin 5000 units/ml) 5,000 units EVERY 12 HOURS SUBQ 05/27/19 09:00 06/26/19 08:59 06/09/19 21:05 Magnesium Hydroxide (Mom) 30 ml DAILYPRN PRN ORAL Constipation 06/04/19 05:45 07/04/19 05:44 Megestrol Acetate (Megace) 400 mg TWICE A DAY ORAL 06/02/19 09:00 07/02/19 08:59 06/09/19 17:12 Midodrine (Pro-Amatine) 5 mg TID@0600,1400,2200 ORAL 06/10/19 06:00 07/10/19 05:59 Mirtazapine (Remeron) 7.5 mg BEDTIME ORAL 06/02/19 21:00 07/02/19 20:59 06/09/19 21:04 Pantoprazole (Protonix) 40 mg DAILY IVP 05/27/19 09:00 06/26/19 08:59 06/09/19 08:38 Polyethylene Glycol (Miralax) 17 gm DAILY PRN ORAL Constipation 06/02/19 05:30 07/02/19 05:29 Sodium Phosphate (Fleet's Sodium Phosl Enema) 133 ml DAILYPRN PRN RECTAL Constipation 2/12/20 05:45 07/04/19 05:44 Pedrito Caban MD Jun 10, 2019 08:58
[2019-06-10] MEDS: Pantoprazole Inj IVP SCH (09:23)
[2019-06-10] MEDS: Docusate 250mg cap ORAL SCH ×2 (09:24→17:20)
[2019-06-10] MEDS: Docusate 100mg cap ORAL SCH ×2 (09:25→17:20)
[2019-06-10] MEDS: Megace 400mg/10ml Susp ORAL SCH ×2 (09:25→17:20)
[2019-06-10] MEDS: Heparin 5000 units/ml inj SUBQ SCH ×2 (09:26→21:16)
--- NOTE | 2019-06-10 10:58 | Infectious Diseases Prog Note ---
Assessment/Plan Assessment/Plan antibiotics : none A 1. pneumonia s/p rx 2. proteus UTI s/p rx 3. hypertension 4. dementia 5. renal failure P 1. continue off antibiotics 2. will follow up clinically Subjective ROS Limited/Unobtainable: Yes Allergies: Coded Allergies: SIMVASTATIN (Verified Allergy, Unknown, 05/26/19) Objective Vital Signs Last 24 Hour Vital Signs Date Time Temp Pulse Resp B/P (MAP) Pulse Ox O2 Delivery O2 Flow Rate FiO2 06/10/19 08:34 Nasal Cannula 3.0 06/10/19 08:24 70 22 94 Nasal Cannula 3.0 32 78 20 91 06/10/19 08:23 92 Nasal Cannula 3.0 32 06/10/19 08:00 98.6 81 19 123/60 (81) 91 06/10/19 04:00 98.1 75 22 144/80 (101) 95 06/10/19 00:51 70 18 96 Nasal Cannula 3.0 32 78 18 94 06/10/19 00:51 71 18 94 Nasal Cannula 3.0 32 06/10/19 00:51 94 Nasal Cannula 3.0 32 06/10/19 00:00 98.3 74 18 127/74 (91) 96 06/09/19 21:31 Nasal Cannula 3.0 06/09/19 20:00 98.1 65 18 114/84 (94) 97 06/09/19 16:00 98.0 69 17 122/57 (78) 96 06/09/19 12:00 98.2 53 17 136/63 (87) 96 Height (Feet): 5 Height (Inches): 6.00 Weight (Pounds): 141 Respiratory/Chest: lungs clear Cardiovascular: normal rate, regular rhythm, no gallop/murmur Abdomen: soft, non tender Extremities: no edema Current Medications Medications (Trade) Dose Ordered Sig/Monster Route PRN Reason Start Time Stop Time Status Last Admin Dose Admin Albuterol/ Ipratropium (Albuterol/ Ipratropium) 3 ml Q6HRT HHN 06/09/19 22:45 06/14/19 22:44 06/10/19 08:22 Docusate Sodium (Colace) 100 mg TWICE A DAY ORAL 06/02/19 09:00 07/02/19 08:59 06/10/19 09:25 Docusate Sodium (Colace) 250 mg BID ORAL 06/04/19 09:00 07/04/19 08:59 06/10/19 09:24 Heparin Sodium (Porcine) (Heparin 5000 units/ml) 5,000 units EVERY 12 HOURS SUBQ 05/27/19 09:00 06/26/19 08:59 06/10/19 09:26 Magnesium Hydroxide (Mom) 30 ml DAILYPRN PRN ORAL Constipation 06/04/19 05:45 07/04/19 05:44 Megestrol Acetate (Megace) 400 mg TWICE A DAY ORAL 06/02/19 09:00 07/02/19 08:59 06/10/19 09:25 Midodrine (Pro-Amatine) 5 mg TID@0600,1400,2200 ORAL 06/10/19 06:00 07/10/19 05:59 Mirtazapine (Remeron) 7.5 mg BEDTIME ORAL 06/02/19 21:00 07/02/19 20:59 06/09/19 21:04 Pantoprazole (Protonix) 40 mg DAILY IVP 05/27/19 09:00 06/26/19 08:59 06/10/19 09:23 Polyethylene Glycol (Miralax) 17 gm DAILY PRN ORAL Constipation 06/02/19 05:30 07/02/19 05:29 Sodium Phosphate (Fleet's Sodium Phosl Enema) 133 ml DAILYPRN PRN RECTAL Constipation 06/04/19 05:45 07/04/19 05:44 Johnnie Hi MD Jun 10, 2019 10:58
[2019-06-10 12:00] VITALS: BP 119/63
[2019-06-10 16:00] VITALS: BP 110/70
[2019-06-10 20:00] VITALS: BP 121/69
[2019-06-11] VITALS: BP 116/76
--- NOTE | 2019-06-11 01:00 | Progress Note ---
DATE: 06/10/2019 CARDIOLOGY PROGRESS NOTE SUBJECTIVE: The patient is off antimicrobials. Still with congestion. Chest x-ray has not improved. He remains hypoxic requiring low flow oxygen. PHYSICAL EXAMINATION: LUNGS: Bilateral breath sounds. Diminished at bases. HEART: Regular rhythm and rate. Normal S1, S2. ABDOMEN: Soft. EXTREMITIES: Trace edema. IMPRESSION: 1. Healthcare-associated pneumonia. 2. Hypoxia. 3. Anemia. 4. Acute on chronic diastolic congestive heart failure. 5. Resolved dehydration and hypernatremia. 6. Severe protein-calorie malnutrition with third spacing. PLAN: 1. Nasal oxygen. 2. Bronchodilator. 3. Diuresis. 4. Trend natriuretic peptide assay. 5. Discharge planning. Hunter Lion M.D. DR: SOSA JOB#: [id number] CC:
[2019-06-11] MEDS: Albuterol/Ipratropium 3ml neb HHN SCH ×3 (01:25→13:38)
[2019-06-11 04:00] VITALS: BP 107/56
[2019-06-11 07:17] LABS: BASOPHILS % (AUTO) 1.5 % (0.0-2.0); EOSINOPHILS % (AUTO) 1.2 % (0.0-3.0); HEMATOCRIT 29.7 % (42.0-52.0); HEMOGLOBIN 9.8 G/DL (14.2-18.0); MEAN CORPUSCULAR VOLUME 85 FL (80-99); MONOCYTES % (AUTO) 11.2 % (1.0-10.0); NEUTROPHILS % (AUTO) 67.2 % (45.0-75.0); PLATELET COUNT 518 K/UL (150-450); RED BLOOD COUNT 3.48 M/UL (4.70-6.10); RED CELL DISTRIBUTION WIDTH 13.4 % (11.6-14.8); WHITE BLOOD COUNT 7.6 K/UL (4.8-10.8)
[2019-06-11 07:43] LABS: ALANINE AMINOTRANSFERASE 15 U/L (12-78); ALBUMIN 1.8 G/DL (3.4-5.0); ALBUMIN/GLOBULIN RATIO 0.4 (1.0-2.7); ALKALINE PHOSPHATASE 82 U/L (46-116); ANION GAP 13 mmol/L (5-15); ASPARTATE AMINO TRANSFERASE 13 U/L (15-37); BILIRUBIN,TOTAL 0.4 MG/DL (0.2-1.0); BLOOD UREA NITROGEN 15 mg/dL (7-18); CARBON DIOXIDE 23 MMOL/L (21-32); CHLORIDE 109 MMOL/L (98-107); CREATININE 1.6 MG/DL (0.55-1.30); POTASSIUM 3.9 MMOL/L (3.5-5.1); SODIUM 145 MMOL/L (136-145)
--- NOTE | 2019-06-11 07:55 | Pulmonology Progress Note ---
Assessment/Plan Assessment/Plan Pulmonary Progress Note Assessment/Plan IMPRESSION: 1. Pulmonary infiltrates, with bilateral effusions 2. Hypernatremia. 3. Acute renal failure. 4. Toxic metabolic encephalopathy. 5. Chronic encephalopathy. 6. Parkinsonism. 7. Dementia. 8. Severe protein-calorie malnutrition. PLAN aspiration precautions respiratory care as is oxygen as needed monitor imaging for change DVT prophylaxis aspiration precautions as is antibiotics reviewed DNR 02 needs noted impression, plan, and exam edited and reviewed in detail care discussed with RN Subjective Allergies: Coded Allergies: SIMVASTATIN (Verified Allergy, Unknown, 05/26/19) Subjective reviewed care CXR with persistenet infiltrates remains on O2 Objective Vital Signs Noted Objective GENERAL: The patient is an ill-appearing male, currently on oxygen. HEENT: Negative. Extraocular movements are difficult to assess. Oropharynx with poor overall care. Dry mucous membranes. NECK: Supple. LUNGS: some rhonchi and crackles at both bases. CARDIAC: S1 and S2. Slightly tachycardic. Soft systolic murmur. ABDOMEN: Soft. no distention EXTREMITIES: No cyanosis or clubbing. NEUROLOGIC: The patient is confused. Reduced range of motion. reviewed and edited Laboratory Tests noted Subjective ROS Limited/Unobtainable: No Allergies: Coded Allergies: SIMVASTATIN (Verified Allergy, Unknown, 05/26/19) Objective Last 24 Hour Vital Signs Date Time Temp Pulse Resp B/P (MAP) Pulse Ox O2 Delivery O2 Flow Rate FiO2 06/11/19 04:00 97.6 81 20 107/56 (73) 96 06/11/19 01:35 88 20 97 Nasal Cannula 3.0 32 06/11/19 01:25 87 20 93 Nasal Cannula 3.0 32 06/11/19 00:00 99.2 89 20 116/76 (89) 96 06/10/19 21:00 Nasal Cannula 3.0 06/10/19 20:00 87 20 98 Nasal Cannula 3.0 32 06/10/19 20:00 97.4 103 20 121/69 (86) 96 06/10/19 19:50 95 Nasal Cannula 3.0 32 06/10/19 19:50 84 20 95 Nasal Cannula 3.0 32 06/10/19 16:00 98.0 96 20 110/70 (83) 91 06/10/19 13:06 79 22 95 Nasal Cannula 3.0 32 78 20 91 06/10/19 12:00 97.9 80 17 119/63 (81) 92 06/10/19 08:34 Nasal Cannula 3.0 06/10/19 08:24 70 22 94 Nasal Cannula 3.0 32 78 20 91 06/10/19 08:23 92 Nasal Cannula 3.0 32 06/10/19 08:00 98.6 81 19 123/60 (81) 91 Intake and Output 06/10/19 06/11/19 19:00 07:00 Intake Total 25 ml 60 ml Output Total 1200 ml 200 ml Balance -1175 ml -140 ml Intake Oral 25 ml 60 ml Output Urine Total 1200 ml 200 ml # Bowel Movements 1 1 Laboratory Tests 06/11/19 05:33: White Blood Count 7.6, Red Blood Count 3.48L, Hemoglobin 9.8L, Hematocrit 29.7L , Mean Corpuscular Volume 85, Mean Corpuscular Hemoglobin 28.3, Mean Corpuscular Hemoglobin Concent 33.2, Red Cell Distribution Width 13.4, Platelet Count 518H, Mean Platelet Volume 4.9L, Neutrophils (%) (Auto) 67.2, Lymphocytes (%) (Auto) 19.0L, Monocytes (%) (Auto) 11.2H, Eosinophils (%) (Auto) 1.2, Basophils (%) (Auto) 1.5, Sodium Level 145, Potassium Level 3.9, Chloride Level 109H, Carbon Dioxide Level 23, Anion Gap 13, Blood Urea Nitrogen 15, Creatinine 1.6H, Estimat Glomerular Filtration Rate 41.2, Glucose Level 84, Calcium Level 9.0, Magnesium Level 2.0, Total Bilirubin 0.4, Aspartate Amino Transf (AST/SGOT ) 13L, Alanine Aminotransferase (ALT/SGPT) 15, Alkaline Phosphatase 82, Pro-B- Type Natriuretic Peptide 918H, Total Protein 6.8, Albumin 1.8L, Globulin 5.0, Albumin/Globulin Ratio 0.4L Current Medications Medications (Trade) Dose Ordered Sig/Monster Route PRN Reason Start Time Stop Time Status Last Admin Dose Admin Albuterol/ Ipratropium (Albuterol/ Ipratropium) 3 ml Q6HRT HHN 06/09/19 22:45 06/14/19 22:44 06/11/19 07:41 Docusate Sodium (Colace) 100 mg TWICE A DAY ORAL 06/02/19 09:00 07/02/19 08:59 06/10/19 17:20 Docusate Sodium (Colace) 250 mg BID ORAL 06/04/19 09:00 07/04/19 08:59 06/10/19 17:20 Heparin Sodium (Porcine) (Heparin 5000 units/ml) 5,000 units EVERY 12 HOURS SUBQ 05/27/19 09:00 06/26/19 08:59 06/10/19 21:16 Magnesium Hydroxide (Mom) 30 ml DAILYPRN PRN ORAL Constipation 06/04/19 05:45 07/04/19 05:44 Megestrol Acetate (Megace) 400 mg TWICE A DAY ORAL 06/02/19 09:00 07/02/19 08:59 06/10/19 17:20 Mirtazapine (Remeron) 7.5 mg BEDTIME ORAL 06/02/19 21:00 07/02/19 20:59 06/10/19 21:15 Pantoprazole (Protonix) 40 mg DAILY IVP 05/27/19 09:00 06/26/19 08:59 06/10/19 09:23 Polyethylene Glycol (Miralax) 17 gm DAILY PRN ORAL Constipation 06/02/19 05:30 07/02/19 05:29 Sodium Phosphate (Fleet's Sodium Phosl Enema) 133 ml DAILYPRN PRN RECTAL Constipation 06/04/19 05:45 07/04/19 05:44 Hunter Bocanegra MD Jun 11, 2019 07:55
[2019-06-11 08:00] VITALS: BP 95/65
[2019-06-11] MEDS: Docusate 250mg cap ORAL SCH (09:00)
[2019-06-11] MEDS: Megace 400mg/10ml Susp ORAL SCH (09:23)
[2019-06-11] MEDS: Docusate 100mg cap ORAL SCH (09:23)
[2019-06-11] MEDS: Heparin 5000 units/ml inj SUBQ SCH (09:24)
[2019-06-11] MEDS: Pantoprazole Inj IVP SCH (09:24)
--- NOTE | 2019-06-11 09:37 | Diagnostic Imaging Report ---
Indication: Shortness of breath Technique: One view of the chest Comparison: 06/09/2019 Findings: Bilateral perihilar infiltrates appear to have improved minimally, still persist. Small bilateral pleural effusions are unchanged. The heart size is normal. The aorta is tortuous and calcified Impression: Slightly improved bilateral perihilar infiltrates. Otherwise stable, over 2 days
--- NOTE | 2019-06-11 11:00 | Infectious Diseases Prog Note ---
Assessment/Plan Assessment/Plan antibiotics : none A 1. pneumonia s/p rx 2. proteus UTI s/p rx 3. hypertension 4. dementia 5. renal failure P 1. continue off antibiotics 2. will follow up clinically Subjective ROS Limited/Unobtainable: Yes Allergies: Coded Allergies: SIMVASTATIN (Verified Allergy, Unknown, 05/26/19) Objective Vital Signs Last 24 Hour Vital Signs Date Time Temp Pulse Resp B/P (MAP) Pulse Ox O2 Delivery O2 Flow Rate FiO2 06/11/19 09:00 Nasal Cannula 3.0 06/11/19 08:03 94 Nasal Cannula 3.0 32 06/11/19 08:00 97.4 79 18 95/65 (75) 97 06/11/19 07:51 80 20 95 Nasal Cannula 3.0 32 82 20 93 06/11/19 04:00 97.6 81 20 107/56 (73) 96 06/11/19 01:35 88 20 97 Nasal Cannula 3.0 32 06/11/19 01:25 87 20 93 Nasal Cannula 3.0 32 06/11/19 00:00 99.2 89 20 116/76 (89) 96 06/10/19 21:00 Nasal Cannula 3.0 06/10/19 20:00 87 20 98 Nasal Cannula 3.0 32 06/10/19 20:00 97.4 103 20 121/69 (86) 96 06/10/19 19:50 95 Nasal Cannula 3.0 32 06/10/19 19:50 84 20 95 Nasal Cannula 3.0 32 06/10/19 16:00 98.0 96 20 110/70 (83) 91 06/10/19 13:06 79 22 95 Nasal Cannula 3.0 32 78 20 91 06/10/19 12:00 97.9 80 17 119/63 (81) 92 Height (Feet): 5 Height (Inches): 6.00 Weight (Pounds): 133 Respiratory/Chest: lungs clear Cardiovascular: normal rate, regular rhythm, no gallop/murmur Abdomen: soft, non tender Extremities: no edema Laboratory Tests Test 06/11/19 05:33 White Blood Count 7.6 K/UL (4.8-10.8) Red Blood Count 3.48 M/UL (4.70-6.10) L Hemoglobin 9.8 G/DL (14.2-18.0) L Hematocrit 29.7 % (42.0-52.0) L Mean Corpuscular Volume 85 FL (80-99) Mean Corpuscular Hemoglobin 28.3 PG (27.0-31.0) Mean Corpuscular Hemoglobin Concent 33.2 G/DL (32.0-36.0) Red Cell Distribution Width 13.4 % (11.6-14.8) Platelet Count 518 K/UL (150-450) H Mean Platelet Volume 4.9 FL (6.5-10.1) L Neutrophils (%) (Auto) 67.2 % (45.0-75.0) Lymphocytes (%) (Auto) 19.0 % (20.0-45.0) L Monocytes (%) (Auto) 11.2 % (1.0-10.0) H Eosinophils (%) (Auto) 1.2 % (0.0-3.0) Basophils (%) (Auto) 1.5 % (0.0-2.0) Sodium Level 145 MMOL/L (136-145) Potassium Level 3.9 MMOL/L (3.5-5.1) Chloride Level 109 MMOL/L (98-107) H Carbon Dioxide Level 23 MMOL/L (21-32) Anion Gap 13 mmol/L (5-15) Blood Urea Nitrogen 15 mg/dL (7-18) Creatinine 1.6 MG/DL (0.55-1.30) H Estimat Glomerular Filtration Rate 41.2 mL/min (>60) Glucose Level 84 MG/DL (74-106) Calcium Level 9.0 MG/DL (8.5-10.1) Magnesium Level 2.0 MG/DL (1.8-2.4) Total Bilirubin 0.4 MG/DL (0.2-1.0) Aspartate Amino Transf (AST/SGOT) 13 U/L (15-37) L Alanine Aminotransferase (ALT/SGPT) 15 U/L (12-78) Alkaline Phosphatase 82 U/L (46-116) Pro-B-Type Natriuretic Peptide 918 pg/mL (0-125) H Total Protein 6.8 G/DL (6.4-8.2) Albumin 1.8 G/DL (3.4-5.0) L Globulin 5.0 g/dL Albumin/Globulin Ratio 0.4 (1.0-2.7) L Current Medications Medications (Trade) Dose Ordered Sig/Monster Route PRN Reason Start Time Stop Time Status Last Admin Dose Admin Albuterol/ Ipratropium (Albuterol/ Ipratropium) 3 ml Q6HRT HHN 06/09/19 22:45 06/14/19 22:44 06/11/19 07:41 Docusate Sodium (Colace) 100 mg TWICE A DAY ORAL 06/02/19 09:00 07/02/19 08:59 06/11/19 09:23 Docusate Sodium (Colace) 250 mg BID ORAL 06/04/19 09:00 07/04/19 08:59 06/10/19 17:20 Heparin Sodium (Porcine) (Heparin 5000 units/ml) 5,000 units EVERY 12 HOURS SUBQ 05/27/19 09:00 06/26/19 08:59 06/11/19 09:24 Magnesium Hydroxide (Mom) 30 ml DAILYPRN PRN ORAL Constipation 06/04/19 05:45 07/04/19 05:44 Megestrol Acetate (Megace) 400 mg TWICE A DAY ORAL 06/02/19 09:00 07/02/19 08:59 06/11/19 09:23 Mirtazapine (Remeron) 7.5 mg BEDTIME ORAL 06/02/19 21:00 07/02/19 20:59 06/10/19 21:15 Pantoprazole (Protonix) 40 mg DAILY IVP 05/27/19 09:00 06/26/19 08:59 06/11/19 09:24 Polyethylene Glycol (Miralax) 17 gm DAILY PRN ORAL Constipation 06/02/19 05:30 07/02/19 05:29 Sodium Phosphate (Fleet's Sodium Phosl Enema) 133 ml DAILYPRN PRN RECTAL Constipation 06/04/19 05:45 07/04/19 05:44 Johnnie Hi MD Jun 11, 2019 11:00
[2019-06-11 12:00] VITALS: BP 105/64
[2019-06-11 16:00] VITALS: BP 109/67
--- NOTE | 2019-06-12 03:15 | Progress Note ---
DATE: 06/11/2019 CARDIOLOGY PROGRESS NOTE SUBJECTIVE: Off antibiotics. No shortness of breath. Chest radiograph has slight improvement. OBJECTIVE: VITAL SIGNS: Blood pressure 95/65, heart rate 79, respiratory rate 18, and oxygen saturation on 3 liters 94%. IMPRESSION: 1. Chronic diastolic congestive heart failure. 2. Urinary tract infection, status post therapy. 3. Pneumonia, status post therapy. 4. Persisting infiltrate, but slow progress and resolved with resolution. 5. Hypertensive heart disease. 6. Chronic diastolic congestive heart failure. 7. Cerebrovascular disease with dementia. 8. Hypoxia. PLAN: 1. Off antimicrobials. 2. Oxygen supplementation. 3. Maintenance cardiac regimen. 4. May need additional periodic diuresis. 5. Stable for transfer to alf facility for completion of recovery. 6. Follow up chest radiograph until one weeks' time until resolution of infiltrates. Hunter Lion M.D. DR: CADE JOB#: [id number] CC:
--- NOTE | 2019-06-12 16:46 | Diagnostic Imaging Report ---
Indications: Dysphagia Technique: Patient ingested multiple substances under the supervision of speech pathology. Video fluoroscopic recording performed. Total fluoroscopy time 260 seconds. Total dose area product [id number] mGycm2 Total number of images-10 Comparison: none Findings: Early pooling and aicha aspiration of thin liquid barium prior to swallowing is demonstrated with ingestion of nectar thick liquid barium, there is early pooling of contrast and supraglottic laryngeal penetration. With ingestion of honey thick liquid barium, there is supraglottic laryngeal penetration. Ingestion of barium pudding also results in penetration as does wash with the thin liquid barium. Impression: Positive for aspiration of thin liquid barium, penetration multiple other substances. Please refer to speech pathology report for more detailed analysis
--- NOTE | 2019-06-15 12:40 | Discharge Summary ---
Discharge Summary Discharge Summary _ DATE OF ADMISSION: 05/26/2019 DATE OF DISCHARGE: 06/11/2019 DISCHARGED BY: Dr. Gunter REASON FOR ADMISSION: 88 years old male, resident of alf facility, with past medical history of dementia, atherosclerotic cardiovascular disease, hypertension, history of abdominal aortic aneurysm, status post endovascular repair, urinary retention, presented to emergency room due to worsening confusion, shortness of breath and congestion. Upon evaluation he was afebrile , but found to be tachycardic ,tachypneic and hypoxic and required supplemental oxygen. Laboratory work-up revealed leukocytosis with WBC 14.3, hemoglobin 12.1, hematocrit 39.5. Sodium 155, BUN 53, creatinine 1.6. Glucose 156. Troponin negative. proBNP 1097. Lactic acid 2.2. Repeated 2.4. Urinalysis revealed pyuria ,+3 leukocyte esterase, +3 protein. Chest x-ray revealed bilateral infiltrates. Septic work-up initiated in the emergency room , and patient subsequently admitted for further management. CONSULTANTS: human capital manager pulmonary Dr. Caban ID specialist Dr. Hi HOSPITAL COURSE: Patient admitted and started on fluid resuscitation and empiric antibiotic as per ID specialist recommendation. Supplemental oxygen provided and titrated to keep pulse oximetry above 92%. Pulmonary toilet with bronchodilator provided. Patient undergone bedside and video swallow evaluations. Video swallow evaluation was positive for aspiration of thin liquid barium. Diet texture provided as per speech therapist recommendation with strict aspiration/reflux precaution and one-to-one supervision. Follow-up chest x-ray revealed interval worsening bilateral perihilar airspace opacity and left lower lung opacity , worsening : pulmonary edema versus infiltrate. Patient subsequently undergone CT scan of the chest , which revealed airspace ground-glass opacity throughout both lung cast. COPD/emphysema. [id number] bilateral pleural effusion. Arteriovascular disease. Degenerative changes of the spine. Echocardiogram demonstrated preserved ejection fraction 55 to 60% with no evidence of wall motion abnormality. Right ventricular systolic pressure of 16. Patient restarted on diuresis with caution in lieu of low blood pressure range and renal insufficiency. Volumes and cardiorenal parameters were closely monitored. DVT prophylaxis provided. Midodrine provided for blood pressure support. Protein supplements implemented in plan of care as per occupational medicine officer recommendation. Last chest x-ray revealed some improvement in bilateral perihilar infiltrates. Urine culture revealed Proteus. Antibiotic regimen optimized as per ID specialist recommendation. Leukocytosis resolved. Patient completed treatment for pneumonia and Proteus UTI while in the hospital. Hypernatremia resolved , prior to discharge sodium 145. Acute kidney injury improved. Patient clinically stabilized and was ready for transfer back to alf facility for continuation of care FINAL DIAGNOSES: Sepsis Healthcare associated pneumonia Respiratory failure with hypoxia Proteus UTI Toxic metabolic encephalopathy Acute on chronic renal failure Hypernatremia due to dehydration -resolved Acute on chronic diastolic congestive heart failure Hypertensive heart disease Pleural effusion Cerebrovascular disease with dementia Severe protein calorie malnutrition Peripheral vascular disease with generalized atherosclerosis Dysphagia with high aspiration risk DISCHARGE MEDICATIONS: List of medication was sent to accepting facility DISCHARGE INSTRUCTIONS: Patient was discharged to the alf facility. Follow up with medical doctor at the facility. I have been assigned to dictate discharge summary for this account. I was not involved in the patient's management. Ruthy Looney NP Jun 15, 2019 12:40
== END 2019-06-11 18:03 | DRG 871 ==
LOC: EDBD 21:53 → EMR 22:29 → 4E 23:50 → EDBEDREQ 05-27 00:05 → 4E 05-28 01:10
DX: A41.9 Sepsis, unspecified organism (principal); J18.9 Pneumonia, unspecified organism; J96.01 Acute respiratory failure with hypoxia; G92 Toxic encephalopathy; E43 Unspecified severe protein-calorie malnutrition; I50.33 Acute on chronic diastolic (congestive) heart failure; E87.0 Hyperosmolality and hypernatremia; N17.9 Acute kidney failure, unspecified; I50.32 Chronic diastolic (congestive) heart failure; N39.0 Urinary tract infection, site not specified; Y95 Nosocomial condition; E78.00 Pure hypercholesterolemia, unspecified; G20 Parkinson's disease; F20.9 Schizophrenia, unspecified; K21.9 Gastro-esophageal reflux disease without esophagitis; F02.80 Dementia in other diseases classified elsewhere, unspecified severity, without behavioral disturbance, psychotic disturbance, mood disturbance, and anxiety; I11.0 Hypertensive heart disease with heart failure; J44.9 Chronic obstructive pulmonary disease, unspecified; E86.0 Dehydration; I73.89 Other specified peripheral vascular diseases; I25.10 Atherosclerotic heart disease of native coronary artery without angina pectoris; E87.6 Hypokalemia; E87.8 Other disorders of electrolyte and fluid balance, not elsewhere classified; R13.10 Dysphagia, unspecified; B96.4 Proteus (mirabilis) (morganii) as the cause of diseases classified elsewhere; Z66 Do not resuscitate
CPT/HCPCS: 36415; 36600; 71045; 71250; 74230; 80048; 80053; 80202; 81003; 82248; 82270; 82803; 83540; 83550; 83605; 83735; 83880; 84484; 85007; 85025; 87081; 87086; 87181; 93005; 93306; 94640; 94664; 96365; 96368; 99291; J7030; J7620